=== PATIENT | female | born 1945 | race Caucasian/White ===

== ENCOUNTER 2016-07-28 07:14 | Emergency (ER) | payer MEDICARE, OTHER ==
[~2016-07-28] VITALS: Ht 160 cm; Wt 46.0 kg
[~2016-07-28 07:14] MED LIST: AMLO5TAB4 PO; ATOR20TA38 PO; CLON2TAB3 PO; CYCL-319 PO; FAMO-18 PO; HYDR25SU24 PR; NAPR-260 PO; PROC10TA10 PO; RANI75TA13 PO; TRAM50TA2 PO; VENL150C PO
[2016-07-28 07:18] VITALS: Ht 160 cm; Wt 46.0 kg
[2016-07-28] MEDS ORDERED: CLON2TAB3 PO (08:06)
--- NOTE | 2016-07-28 08:08 | ERD ---
ER Documentation Chief Complaint Date/Time DATE: 07/28/16 TIME: 08:07 Chief Complaint medication refill needs clonazepam HPI 71-year-old female presents to the emergency department requesting a refill of her clonazepam. Patient has no acute complaints at this time other than feeling slightly anxious. She denies seizure activity. She states that she has been unable to see her doctor because her doctor's office is now deferring patients because the doctor has been sick. Patient has no other acute medical complaints at this time. ROS All systems reviewed and are negative except as per history of present illness. Medications Home Meds Active Scripts Clonazepam* (Clonazepam*) 2 Mg Tablet, 2 MG PO BID, #10 TAB Prov:ANDREAS RANGEL 07/28/16 Hydrocortisone Acetate* (Anusol-HC*) 25 Mg/Supp.rect Supp.rect, 1 SUPP [place] HS, # 12 SUPP.RECT Prov:PEACE HERNANDEZ MD 01/02/16 Tramadol HCl (Tramadol HCl) 50 Mg Tab, 50 MG PO Q4 Y for PAIN, #20 TAB Prov:LELAND STOREY PA-C 04/21/15 Cyclobenzaprine Hcl* (Cyclobenzaprine Hcl*) 10 Mg Tablet, 10 MG PO TID, #15 TAB Prov:VIRIDIANA MILLS. BLASTING MACHINE OPERATOR 03/28/15 Naproxen* (Naprosyn*) 500 Mg Tablet, 500 MG PO BID Y for PAIN AND/OR INFLAMMATION, #30 TAB Prov:VIRIDIANA MILLS. BLASTING MACHINE OPERATOR 03/28/15 Tramadol HCl (Tramadol HCl) 50 Mg Tab, 50 MG PO Q6, #8 TAB Prov:LANG STEVENS MD 03/25/15 Reported Medications Clonazepam* (Clonazepam*) 2 Mg Tablet, 2 MG PO QHS, TAB 11/21/14 Prochlorperazine* (Prochlorperazine*) 10 Mg Tablet, 10 MG PO Q4 Y for NAUSEA, TAB 11/21/14 Ranitidine Hcl* (Zantac*) 75 Mg Tablet, 75 MG PO BID, TAB 11/21/14 Amlodipine Besylate* (Norvasc*) 5 Mg Tablet, 5 MG PO DAILY, TAB 11/21/14 Atorvastatin Calcium* (Atorvastatin Calcium*) 20 Mg Tablet, 20 MG PO DAILY 11/04/12 Famotidine* (Pepcid*) 20 Mg Tablet, 20 MG PO BID 11/04/12 Venlafaxine Hcl* (Effexor XR*) 150 Mg Cap.sr.24h, 150 MG PO DAILY 11/04/12 Allergies Allergies: Coded Allergies: No Known Allergy (Unverified , 03/25/15) PMhx/Soc History of Surgery: Yes (breast augmentation, ulcer repair, s/p colectomy, ovarian cyst removal) Anesthesia Reaction: No Hx Neurological Disorder: No Hx Respiratory Disorders: No Hx Cardiac Disorders: No Hx Psychiatric Problems: Yes (anxiety ) Hx Miscellaneous Medical Probl: Yes (Hyperlipidemia ) Hx Alcohol Use: Yes Hx Substance Use: Yes Hx Tobacco Use: Yes Smoking Status: Current some day smoker FmHx Noncontributory for chief complaint Physical Exam Vitals Vital Signs Date Time Temp Pulse Resp B/P Pulse Ox O2 Delivery O2 Flow Rate FiO2 07/28/16 07:18 114 20 138/92 99 Physical Exam General: well developed, well nourished, in no distress. Neuro: Normal speech, gait, balance Psych: Mildly anxious but with normal mental status. Linear thought process. No suicidal or homicidal thoughts. Procedures/MDM Patient was taken to a room, seen and examined Medical decision makin-year-old female presents the emergency department for simple medication refill. At this time she shows no evidence of emergent medical condition on her medical screening examination. Medications have been reviewed and refilled as appropriately. She has been referred back to her primary care doctor for further continuity of care. Departure Diagnosis: Primary Impression: Encounter for medication refill Condition: Stable Patient Instructions: Taking Medicine Safely Referrals: BHARATI TIRADO (PCP) ANDREAS RANGEL Jul 28, 2016 08:08
== END 2016-07-28 08:58 | disposition home or self-care (01) ==
LOC: FTE 07:14
DX: Z76.0 Encounter for issue of repeat prescription (principal); F17.210 Nicotine dependence, cigarettes, uncomplicated
CPT/HCPCS: 99281

== ENCOUNTER 2016-08-05 08:55 | Emergency (ER) | payer MEDICARE, OTHER ==
[~2016-08-05] VITALS: Wt 45.0 kg
--- NOTE | 2016-08-05 12:01 | ERD ---
ER Documentation Chief Complaint Date/Time DATE: 08/05/16 TIME: 11:57 Chief Complaint HERE FOR MED REFILL OF SEIZURE MEDS. FEELING SHAKEY NO SEIZURE HPI Patient is a 8-year-old female with hypertension and seizures who presents for a medication refill. The patient says that she needs a refill for clonazepam. She has not run out of her clonazepam yet but says that she will run out on Friday which is in 2 days. She has multiple visits to the ER upon review of old medical records and she just had her clonazepam refilled by my partner on July 28. ROS All systems reviewed and are negative except as per history of present illness. Medications Home Meds Active Scripts Clonazepam* (Clonazepam*) 2 Mg Tablet, 2 MG PO BID, #10 TAB Prov:ANDREAS RANGEL 07/28/16 Hydrocortisone Acetate* (Anusol-HC*) 25 Mg/Supp.rect Supp.rect, 1 SUPP [place] HS, # 12 SUPP.RECT Prov:PEACE HERNANDEZ MD 01/02/16 Tramadol HCl (Tramadol HCl) 50 Mg Tab, 50 MG PO Q4 Y for PAIN, #20 TAB Prov:LELAND STOREY PA-C 04/21/15 Cyclobenzaprine Hcl* (Cyclobenzaprine Hcl*) 10 Mg Tablet, 10 MG PO TID, #15 TAB Prov:VIRIDIANA MILLS NP 03/28/15 Naproxen* (Naprosyn*) 500 Mg Tablet, 500 MG PO BID Y for PAIN AND/OR INFLAMMATION, #30 TAB Prov:VIRIDIANA MILLS NP 03/28/15 Tramadol HCl (Tramadol HCl) 50 Mg Tab, 50 MG PO Q6, #8 TAB Prov:LANG STEVENS MD 03/25/15 Reported Medications Clonazepam* (Clonazepam*) 2 Mg Tablet, 2 MG PO QHS, TAB 11/21/14 Prochlorperazine* (Prochlorperazine*) 10 Mg Tablet, 10 MG PO Q4 Y for NAUSEA, TAB 11/21/14 Ranitidine Hcl* (Zantac*) 75 Mg Tablet, 75 MG PO BID, TAB 11/21/14 Amlodipine Besylate* (Norvasc*) 5 Mg Tablet, 5 MG PO DAILY, TAB 11/21/14 Atorvastatin Calcium* (Atorvastatin Calcium*) 20 Mg Tablet, 20 MG PO DAILY 11/04/12 Famotidine* (Pepcid*) 20 Mg Tablet, 20 MG PO BID 11/04/12 Venlafaxine Hcl* (Effexor XR*) 150 Mg Cap.sr.24h, 150 MG PO DAILY 11/04/12 Allergies Allergies: Coded Allergies: No Known Allergy (Unverified , 03/25/15) PMhx/Soc History of Surgery: Yes (breast augmentation, ulcer repair, s/p colectomy, ovarian cyst removal) Anesthesia Reaction: No Hx Neurological Disorder: No Hx Respiratory Disorders: No Hx Cardiac Disorders: No Hx Psychiatric Problems: Yes (anxiety ) Hx Miscellaneous Medical Probl: Yes (Hyperlipidemia ) Hx Alcohol Use: Yes Hx Substance Use: Yes Hx Tobacco Use: Yes FmHx Family History: No diabetes Physical Exam Vitals Vital Signs Date Time Temp Pulse Resp B/P Pulse Ox O2 Delivery O2 Flow Rate FiO2 08/05/16 09:03 98.5 99 22 114/81 94 Physical Exam Const: No acute distress Head: Atraumatic Eyes: Normal Conjunctiva ENT: Normal External Ears, Nose and Mouth. Neck: Full range of motion..~ No meningismus. Resp: Clear to auscultation bilaterally Cardio: Regular rate and rhythm, no murmurs Abd: Soft, non tender, non distended. Normal bowel sounds Skin: No petechiae or rashes Back: No midline or flank tenderness Ext: No cyanosis, or edema Neur: Awake and alert, no seizure activity this time Psych: Normal Mood and Affect Procedures/MDM Smoking Cessation Therapy: Pt. was lectured for greater than 3 minutes on the health risks of continued smoking and the benefits of cessation. Patient is a 71-year-old female with seizures who takes clonazepam. She is requesting a refill for clonazepam. Given the fact that this is a controlled substance I will not give her a refill. She still has 2 days left on her prescription. She will need to get this filled by her primary doctor. Review of old medical records shows multiple visits to the ER for various complaints. There may be an element of drug-seeking behavior. She has no sign of acute seizure at this time. Departure Diagnosis: Primary Impression: Seizures Additional Impression: Encounter for medication refill Condition: Fair Patient Instructions: Seizure, Recurrent [Adult] Referrals: [facility] YOU HAVE RECEIVED A MEDICAL SCREENING EXAM AND THE RESULTS INDICATE THAT YOU DO NOT HAVE A CONDITION THAT REQUIRES URGENT TREATMENT IN THE EMERGENCY DEPARTMENT. FURTHER EVALUATION AND TREATMENT OF YOUR CONDITION CAN WAIT UNTIL YOU ARE SEEN IN YOUR DOCTORS OFFICE WITHIN THE NEXT 1-2 DAYS. IT IS YOUR RESPONSIBILITY TO MAKE AN APPOINTMENT FOR FOLOW-UP CARE. IF YOU HAVE A PRIMARY DOCTOR --you should call your primary doctor and schedule an appointment IF YOU DO NOT HAVE A PRIMARY DOCTOR YOU CAN CALL OUR PHYSICIAN REFERRAL HOTLINE AT IF YOU CAN NOT AFFORD TO SEE A PHYSICIAN YOU CAN CHOSE FROM THE FOLLOWING [facility] [id number] [facility]. [facility] [address] [facility]. [facility] [address] [facility] [facility] [address] [facility]. [facility] [address] [facility]. [facility] [address] Additional Instructions: Call your primary care doctor TOMORROW for an appointment during the next 1-2 days.See the doctor sooner or return here if your condition worsens before your appointment time. PEACE HERNANDEZ MD Aug 05, 2016 12:01
== END 2016-08-05 10:19 | disposition left against medical advice (07) ==
LOC: E/R 08:55
DX: G40.909 Epilepsy, unspecified, not intractable, without status epilepticus (principal); I10 Essential (primary) hypertension; Z87.891 Personal history of nicotine dependence
CPT/HCPCS: 99281

== ENCOUNTER 2017-01-10 07:08 | Emergency (ER) | payer MEDICARE, OTHER ==
[~2017-01-10] VITALS: Wt 62.0 kg
[~2017-01-10 07:08] MED LIST changes: +CEPH-443 PO; -FAMO-18 PO; +FAMO-96 PO; +HC30CR25 TOP; +SULF1TAB31 PO
[2017-01-10 07:11] VITALS: Wt 62.0 kg
[2017-01-10] MEDS ORDERED: morphine 4 MG/ML VIAL IV STA (07:26)
[2017-01-10] MEDS ORDERED: ONDANSETRON 4 MG INJ IV STA (07:26)
[2017-01-10] MEDS ORDERED: SOD CHLORIDE 0.9% 1,000 ML IV STA (07:26)
[2017-01-10 08:11] LABS: ADD SCAN DIFF NO
[2017-01-10 08:12] LABS: BASOPHIL # 0.1 10^3/ul (0.0-0.1); BASOPHILS % 0.9 % (0.0-2.0); EOSINOPHILS # 0.1 10^3/ul (0.0-0.5); EOSINOPHILS % 2.2 % (0.0-7.0); HEMATOCRIT 39.6 % (37.0-47.0); HEMOGLOBIN 13.2 g/dl (12.0-16.0); LYMPHOCYTES # 1.8 10^3/ul (0.8-2.9); MEAN CORPUSCULAR HGB CONC 33.3 g/dl (32.0-37.0); MEAN CORPUSCULAR VOLUME 102.1 fl (82.0-101.0); MEAN PLATELET VOLUME 10.7 fl (7.4-10.4); MONOCYTE # 0.6 10^3/ul (0.3-0.9); MONOCYTES % 8.6 % (0.0-11.0); NEUTROPHIL # 3.8 10^3/ul (1.6-7.5); NEUTROPHILS % 60.1 % (39.0-77.0); PLATELET COUNT 248 10^3/UL (140-415); RED BLOOD COUNT 3.88 10^6/ul (4.20-5.40); RED CELL DISTRIBUTION WIDTH 12.6 % (11.5-14.5); WHITE BLOOD COUNT 6.4 10^3/ul (4.8-10.8)
[2017-01-10 08:31] LABS: ALANINE AMINOTRANSFERASE 46 IU/L (13-69); ALBUMIN 4.5 g/dl (3.3-4.9); ALBUMIN/GLOBULIN RATIO 1.32; ALKALINE PHOSPHATASE 74 IU/L (42-121); ANION GAP 23 (8-16); ASPARTATE AMINO TRANSFERASE 36 IU/L (15-46); BILIRUBIN,INDIRECT 0.2 mg/dl (0-1.1); BILIRUBIN,TOTAL 0.2 mg/dl (0.2-1.3); BLOOD UREA NITROGEN 13 mg/dl (7-20); CALCIUM 9.6 mg/dl (8.4-10.2); CARBON DIOXIDE 22 mmol/L (21-31); CHLORIDE 103 mmol/L (97-110); CREATININE 0.91 mg/dl (0.44-1.00); GLUCOSE 91 mg/dl (70-220); POTASSIUM 4.4 mmol/L (3.5-5.1); SODIUM 144 mmol/L (135-144); TOTAL PROTEIN 7.9 g/dl (6.1-8.1)
--- NOTE | 2017-01-10 08:38 | RADRPT ---
PROCEDURE: CT Abdomen and Pelvis without contrast. CLINICAL INDICATION: Abdominal pain. TECHNIQUE: Routine abdominopelvic CT was performed without intravenous contrast and reformatted in the axial, coronal, sagittal planes. Radiation dose: CTDIvol (mGy) = 4.2; total DLP mGy-cm = 198. One or more of the following radiation dose techniques were used: -Automated exposure control. -Adjust of the mA and/or kV according to patient size. -Use of iterative reconstruction technique. COMPARISON: CT, 11/21/2014. FINDINGS: The gallbladder is distended without stones or gallbladder wall thickening. Unenhanced images of th e liver, pancreas, and spleen demonstrate no gross abnormality. There is stable nodular thickening of the left greater than right adrenal glands. Kidneys demonstrate symmetric attenuation without hydronephrosis or nephrolithiasis. There is mild to moderate sigmoid colonic diverticulosis without diverticulitis. There is a moderat e amount of stool identified in the colon. There is an abdominal aortic aneurysm measuring 3.2 cm in AP diameter, unchanged in comparison to . Pelvic viscera is grossly unremarkable. No adnexal cyst or mass. No free fluid or fluid collection . IMPRESSION: Please on this examination is limited without intravenous contrast, which may significantly limit di agnostic sensitivity and the range of detectable diagnoses. Within the limitations of the examinati on, there are no acute changes observed. Stable abdominal aortic aneurysm. Colonic diverticulosis, complicated. RPTAT: EE .Geoffrey Roth MD, Date Time Electronically viewed and signed by .Geoffrey Roth MD, on 01/10/2017 08:42 .C/
[2017-01-10 08:47] LABS: TROPONIN-I < 0.012 ng/ml (0.00-0.12)
[2017-01-10] MEDS ORDERED: MAGN296S40 PO (09:11)
[2017-01-10] MEDS ORDERED: NAPR-685 PO (09:11)
[2017-01-10] MEDS ORDERED: ONDA4TAB11 PO (09:11)
[2017-01-10] MEDS ORDERED: POLY17PO6 PO (09:11)
--- NOTE | 2017-01-10 09:23 | ERD ---
ER Documentation Chief Complaint Date/Time DATE: 01/10/17 TIME: 09:14 Chief Complaint ABD PAIN X 3 DAYS HPI This 71-year-old female presents with abdominal pain for 3 days. States that the pain injection has been on and off for quite some time. Describes it as a pressure-like sensation in her mid abdomen as well as in other parts of her abdomen. Also states she is having trouble having a bowel movement. She has had nausea with this. She denies any chest pain shortness of breath fever chills per ROS All systems reviewed and are negative except as per history of present illness. Medications Home Meds Active Scripts Naproxen* (Naproxen*) 375 Mg Tablet, 375 MG PO BID Y for PAIN, #8 TAB Prov:JERAMY MAN DO 01/10/17 Ondansetron (Zofran Odt) 4 Mg Tab.rapdis, 4 MG PO Q6 for NAUSEA, #10 Prov:JERAMY MAN DO 01/10/17 Polyethylene Glycol* (Miralax*) 17 Gm Powd.pack, 17 GM PO DAILY, #7 Prov:JERAMY MAN DO 01/10/17 Magnesium Citrate* (Magnesium Citrate*) 296 Ml Solution, 296 ML PO ONCE, #1 BOTTLE Prov:JERAMY MAN DO 01/10/17 Hydrocortisone* Topical (Hydrocortisone* Topical) 2.5%-28.3 Gm Cream..g., 1 APPLIC TOP BID, #1 TUB Prov:PEACE HERNANDEZ MD 11/12/16 Sulfamethoxazole/Trimethoprim* (Bactrim Ds* Tablet) 1 Each Tablet, 1 TAB PO BID , #7 TAB Prov:PEACE HERNANDEZ MD 11/12/16 Cephalexin* (Keflex*) 500 Mg Capsule, 500 MG PO QID for 7 Days, CAP Prov:PEACE HERNANDEZ MD 11/12/16 Clonazepam* (Clonazepam*) 2 Mg Tablet, 2 MG PO BID, #10 TAB Prov:ANDREAS RANGEL 07/28/16 Hydrocortisone Acetate* (Anusol-HC*) 25 Mg/Supp.rect Supp.rect, 1 SUPP [place] HS, # 12 SUPP.RECT Prov:PEACE HERNANDEZ MD 01/02/16 Tramadol HCl (Tramadol HCl) 50 Mg Tab, 50 MG PO Q4 Y for PAIN, #20 TAB Prov:LELAND STOREY PA-C 04/21/15 Cyclobenzaprine Hcl* (Cyclobenzaprine Hcl*) 10 Mg Tablet, 10 MG PO TID, #15 TAB Prov:VIRIDIANA MILLS NP 03/28/15 Naproxen* (Naprosyn*) 500 Mg Tablet, 500 MG PO BID Y for PAIN AND/OR INFLAMMATION, #30 TAB Prov:VIRIDIANA MILLS. HEATING EQUIPMENT INSTALLER 03/28/15 Tramadol HCl (Tramadol HCl) 50 Mg Tab, 50 MG PO Q6, #8 TAB Prov:LANG STEVENS MD 03/25/15 Reported Medications Clonazepam* (Clonazepam*) 2 Mg Tablet, 2 MG PO QHS, TAB 11/21/14 Prochlorperazine* (Prochlorperazine*) 10 Mg Tablet, 10 MG PO Q4 Y for NAUSEA, TAB 11/21/14 Ranitidine Hcl* (Zantac*) 75 Mg Tablet, 75 MG PO BID, TAB 11/21/14 Amlodipine Besylate* (Norvasc*) 5 Mg Tablet, 5 MG PO DAILY, TAB 11/21/14 Atorvastatin Calcium* (Atorvastatin Calcium*) 20 Mg Tablet, 20 MG PO DAILY 11/04/12 Famotidine* (Pepcid*) 20 Mg Tablet, 20 MG PO BID 11/04/12 Venlafaxine Hcl* (Effexor XR*) 150 Mg Cap.sr.24h, 150 MG PO DAILY 11/04/12 Allergies Allergies: Coded Allergies: No Known Allergy (Unverified , 03/25/15) PMhx/Soc History of Surgery: Yes (breast augmentation, ulcer repair, s/p colectomy, ovarian cyst removal) Anesthesia Reaction: No Hx Neurological Disorder: No Hx Respiratory Disorders: No Hx Cardiac Disorders: Yes (HTN) Hx Psychiatric Problems: Yes (Anxiety, Depression) Hx Miscellaneous Medical Probl: Yes (Hyperlipidemia ) Hx Alcohol Use: No (Denies) Hx Substance Use: No (Denies) Hx Tobacco Use: Yes Smoking Status: Current every day smoker Physical Exam Vitals Vital Signs Date Time Temp Pulse Resp B/P Pulse Ox O2 Delivery O2 Flow Rate FiO2 01/10/17 08:15 81 18 126/77 95 Room Air 01/10/17 07:11 98.0 121 18 132/76 99 Physical Exam Const: [] No distress Head: Atraumatic Eyes: Normal Conjunctiva ENT: Normal External Ears, Nose and Mouth. Neck: Full range of motion..~ No meningismus. Resp: Clear to auscultation bilaterally Cardio: Regular rate and rhythm, no murmurs Abd: Soft, mild mid abdominal and left-sided abdominal tenderness without guarding or rebound. non distended. Normal bowel sounds Skin: No petechiae or rashes Back: No midline or flank tenderness Ext: No cyanosis, or edema Neur: Awake and alert and oriented 3, no focal deficits Psych: Normal Mood and Affect Result Diagram: 01/10/17 0800 01/10/17 0800 Results 24 hrs Laboratory Tests Test 01/10/17 08:00 White Blood Count 6.410^3/ul Red Blood Count 3.8810^6/ul Hemoglobin 13.2g/dl Hematocrit 39.6% Mean Corpuscular Volume 102.1fl Mean Corpuscular Hemoglobin 34.0pg Mean Corpuscular Hemoglobin Concent 33.3g/dl Red Cell Distribution Width 12.6% Platelet Count 37230^3/UL Mean Platelet Volume 10.7fl Neutrophils % 60.1% Lymphocytes % 28.0% Monocytes % 8.6% Eosinophils % 2.2% Basophils % 0.9% Neutrophils # 3.810^3/ul Lymphocytes # 1.810^3/ul Monocytes # 0.610^3/ul Eosinophils # 0.110^3/ul Basophils # 0.110^3/ul Nucleated Red Blood Cells # 0.010^3/ul Sodium Level 144mmol/L Potassium Level 4.4mmol/L Chloride Level 103mmol/L Carbon Dioxide Level 22mmol/L Anion Gap 23 Blood Urea Nitrogen 13mg/dl Creatinine 0.91mg/dl Glucose Level 91mg/dl Calcium Level 9.6mg/dl Total Bilirubin 0.2mg/dl Direct Bilirubin 0.00mg/dl Indirect Bilirubin 0.2mg/dl Aspartate Amino Transf (AST/SGOT) 36IU/L Alanine Aminotransferase (ALT/SGPT) 46IU/L Alkaline Phosphatase 74IU/L Troponin I < 0.012ng/ml Total Protein 7.9g/dl Albumin 4.5g/dl Globulin 3.40g/dl Albumin/Globulin Ratio 1.32 Lipase 57U/L Current Medications Medications (Trade) Dose Ordered Sig/Richard Route PRN Reason Start Time Stop Time Status Last Admin Dose Admin Sodium Chloride (NS) 1,000 ml @ 1,000 mls/hr Q1H STAT IV 01/10/17 07:26 01/10/17 08:25 DC 01/10/17 08:09 Morphine Sulfate (morphine) 4 mg ONCE STAT IV 01/10/17 07:26 01/10/17 07:30 DC 01/10/17 08:09 Ondansetron HCl (Zofran Inj) 4 mg ONCE STAT IV 01/10/17 07:26 01/10/17 07:30 DC 01/10/17 08:09 Procedures/MDM Abdominal pain with constipation. Patient has stable vital signs and laboratories. CAT scan is negative for any acute process or obstruction. Patient does have a large amount of stool. She was given morphine and Zofran as well as a liter of IV fluid in the emergency room. She is feeling better. We will discharge her with Zofran, naproxen, MiraLAX and magnesium citrate. Also primary care follow-up as soon as possible. Given return precautions to the ER for any concerning changes. CT abdomen pelvis interpretation: Moderate stool retention throughout colon, calcified proximal abdominal aortic aneurysm, no free air, no obstruction, no acute fractures. Departure Diagnosis: Primary Impression: Constipation Additional Impressions: Abdominal pain Nausea Condition: Stable Patient Instructions: Abdominal Pain, Treating Constipation, Nausea Additional Instructions: Call your primary care doctor TOMORROW for an appointment during the next 2-3 days.See the doctor sooner or return here if your condition worsens before your appointment time. JERAMY MAN DO Jan 10, 2017 09:22
[2017-01-10 09:46] LABS: ADD UMIC NO; UR ASCORBIC ACID NEGATIVE (NEGATIVE); UR BILIRUBIN (Dip) NEGATIVE (NEGATIVE); UR BLOOD (Dip) NEGATIVE (NEGATIVE); UR CLARITY CLEAR (CLEAR); UR COLOR COLORLESS (YELLOW); UR GLUCOSE (Dip) NEGATIVE (NEGATIVE); UR KETONES (Dip) NEGATIVE (NEGATIVE); UR LEUKOCYTE ESTERASE (Dip) NEGATIVE Leu/ul (NEGATIVE); UR NITRITE (Dip) NEGATIVE (NEGATIVE); UR SPECIFIC GRAVITY (Dip) 1.008 (1.003-1.030); UR TOTAL PROTEIN (Dip) NEGATIVE (NEGATIVE); UR UROBILINOGEN (Dip) NEGATIVE (NEGATIVE)
[2017-01-10 09:54] VITALS: BP 140/86; PULSE 73; RESP 18
== END 2017-01-10 09:56 | disposition home or self-care (01) ==
LOC: E/R 07:08
DX: K59.00 Constipation, unspecified (principal); R11.0 Nausea; I10 Essential (primary) hypertension; F17.210 Nicotine dependence, cigarettes, uncomplicated
CPT/HCPCS: 36415; 74176; 80053; 81003; 83690; 84484; 85025; 96374; 96375; 99285; J2270; J2405; J7030

== ENCOUNTER 2017-01-23 07:56 | Emergency (ER) | payer MEDICARE, OTHER ==
[~2017-01-23] VITALS: Ht 160 cm; Wt 50.0 kg
[~2017-01-23 07:56] MED LIST changes: +MAGN296S40 PO; +NAPR-685 PO; +ONDA4TAB11 PO; +POLY17PO6 PO
[2017-01-23] MEDS ORDERED: KETOROLAC 15 MG INJ IV STA (08:23)
--- NOTE | 2017-01-23 08:28 | ERD ---
ER Documentation Chief Complaint Date/Time DATE: 01/23/17 TIME: 08:24 Chief Complaint HPI 71-year-old female with a history of COPD, hypertension, peptic ulcer disease, anxiety and chronic pain brought to the ED by ambulance for evaluation of abdominal pain. Patient describes acute onset of sharp, diffuse, nonradiating abdominal pain initially severe but now mild. No nausea, vomiting, diarrhea or constipation. Patient reports being diagnosed with abdominal aortic aneurysm during her previous visit in December 2016 for abdominal pain. Denies dysuria, polyuria, hematuria or flank pain. Denies shortness of breath or cough. No headache, neck or back pain. No leg pain or swelling. No fevers or chills. ROS All systems reviewed and are negative except as per history of present illness. Medications Home Meds Active Scripts Naproxen* (Naproxen*) 375 Mg Tablet, 375 MG PO BID Y for PAIN, #8 TAB Prov:JERAMY MAN DO 01/10/17 Ondansetron (Zofran Odt) 4 Mg Tab.rapdis, 4 MG PO Q6 for NAUSEA, #10 Prov:JERAMY MAN DO 01/10/17 Polyethylene Glycol* (Miralax*) 17 Gm Powd.pack, 17 GM PO DAILY, #7 Prov:JERAMY MAN DO 01/10/17 Magnesium Citrate* (Magnesium Citrate*) 296 Ml Solution, 296 ML PO ONCE, #1 BOTTLE Prov:JERAMY MAN DO 01/10/17 Hydrocortisone* Topical (Hydrocortisone* Topical) 2.5%-28.3 Gm Cream..g., 1 APPLIC TOP BID, #1 TUB Prov:PEACE HERNANDEZ MD 11/12/16 Sulfamethoxazole/Trimethoprim* (Bactrim Ds* Tablet) 1 Each Tablet, 1 TAB PO BID , #7 TAB Prov:PEACE HERNANDEZ MD 11/12/16 Cephalexin* (Keflex*) 500 Mg Capsule, 500 MG PO QID for 7 Days, CAP Prov:PEACE HERNANDEZ MD 11/12/16 Clonazepam* (Clonazepam*) 2 Mg Tablet, 2 MG PO BID, #10 TAB Prov:ANDREAS RANGEL 07/28/16 Hydrocortisone Acetate* (Anusol-HC*) 25 Mg/Supp.rect Supp.rect, 1 SUPP [place] HS, # 12 SUPP.RECT Prov:PEACE HERNANDEZ MD 01/02/16 Tramadol HCl (Tramadol HCl) 50 Mg Tab, 50 MG PO Q4 Y for PAIN, #20 TAB Prov:LELAND STOREY PA-C 04/21/15 Cyclobenzaprine Hcl* (Cyclobenzaprine Hcl*) 10 Mg Tablet, 10 MG PO TID, #15 TAB Prov:VIRIDIANA MILLS. ETHNIC ORIGINS TEACHER 03/28/15 Naproxen* (Naprosyn*) 500 Mg Tablet, 500 MG PO BID Y for PAIN AND/OR INFLAMMATION, #30 TAB Prov:VIRIDIANA MILLS. ETHNIC ORIGINS TEACHER 03/28/15 Tramadol HCl (Tramadol HCl) 50 Mg Tab, 50 MG PO Q6, #8 TAB Prov:LANG STEVENS MD 03/25/15 Reported Medications Clonazepam* (Clonazepam*) 2 Mg Tablet, 2 MG PO QHS, TAB 11/21/14 Prochlorperazine* (Prochlorperazine*) 10 Mg Tablet, 10 MG PO Q4 Y for NAUSEA, TAB 11/21/14 Ranitidine Hcl* (Zantac*) 75 Mg Tablet, 75 MG PO BID, TAB 11/21/14 Amlodipine Besylate* (Norvasc*) 5 Mg Tablet, 5 MG PO DAILY, TAB 11/21/14 Atorvastatin Calcium* (Atorvastatin Calcium*) 20 Mg Tablet, 20 MG PO DAILY 11/04/12 Famotidine* (Pepcid*) 20 Mg Tablet, 20 MG PO BID 11/04/12 Venlafaxine Hcl* (Effexor XR*) 150 Mg Cap.sr.24h, 150 MG PO DAILY 11/04/12 Allergies Allergies: Coded Allergies: No Known Allergy (Unverified , 03/25/15) PMhx/Soc Reviewed in chart. As per HPI. History of Surgery: Yes (breast augmentation, ulcer repair, s/p colectomy, ovarian cyst removal) Anesthesia Reaction: No Hx Neurological Disorder: No Hx Respiratory Disorders: No Hx Cardiac Disorders: Yes (HTN, AAA) Hx Psychiatric Problems: Yes (Anxiety, Depression) Hx Miscellaneous Medical Probl: Yes (Hyperlipidemia ) Hx Alcohol Use: No (Denies) Hx Substance Use: No (Denies) Hx Tobacco Use: Yes Smoking Status: Current every day smoker FmHx Hypertension but no stroke or cancer Physical Exam Vitals Vital Signs Date Time Temp Pulse Resp B/P Pulse Ox O2 Delivery O2 Flow Rate FiO2 01/23/17 10:16 98.3 83 17 139/73 94 Room Air 01/23/17 10:13 98.1 80 19 135/69 100 Physical Exam Const: Alert, anxious Head: Atraumatic Eyes: Normal Conjunctiva ENT: Normal External Ears, Nose and Mouth. Neck: Full range of motion. Nontender Resp: Clear to auscultation bilaterally Cardio: Regular rate and rhythm, no murmurs Abd: Soft, mild, generalized tenderness but no rebound or guarding. No masses or abnormal pulsations. Skin: No petechiae or rashes Back: No midline or flank tenderness Ext: No cyanosis, or edema. Pulses 4+ in all extrema Neur: Awake and alert. No focal deficit observed. Psych: Anxious but not depressed Result Diagram: 01/23/17 0849 01/23/17 0849 Results 24 hrs Laboratory Tests Test 01/23/17 08:49 White Blood Count 9.010^3/ul Red Blood Count 3.9410^6/ul Hemoglobin 13.2g/dl Hematocrit 39.9% Mean Corpuscular Volume 101.3fl Mean Corpuscular Hemoglobin 33.5pg Mean Corpuscular Hemoglobin Concent 33.1g/dl Red Cell Distribution Width 12.3% Platelet Count 45751^3/UL Mean Platelet Volume 11.1fl Neutrophils % 71.5% Lymphocytes % 17.9% Monocytes % 8.6% Eosinophils % 1.0% Basophils % 0.7% Nucleated Red Blood Cells % 0.0/100WBC Neutrophils # 6.410^3/ul Lymphocytes # 1.610^3/ul Monocytes # 0.810^3/ul Eosinophils # 0.110^3/ul Basophils # 0.110^3/ul Nucleated Red Blood Cells # 0.010^3/ul Sodium Level 143mmol/L Potassium Level 4.3mmol/L Chloride Level 101mmol/L Carbon Dioxide Level 23mmol/L Anion Gap 23 Blood Urea Nitrogen 19mg/dl Creatinine 0.93mg/dl Glucose Level 89mg/dl Calcium Level 10.0mg/dl Total Bilirubin 0.0mg/dl Direct Bilirubin 0.00mg/dl Indirect Bilirubin 0.0mg/dl Aspartate Amino Transf (AST/SGOT) 26IU/L Alanine Aminotransferase (ALT/SGPT) 40IU/L Alkaline Phosphatase 70IU/L Total Protein 7.9g/dl Albumin 4.7g/dl Globulin 3.20g/dl Albumin/Globulin Ratio 1.46 Current Medications Medications (Trade) Dose Ordered Sig/Richard Route PRN Reason Start Time Stop Time Status Last Admin Dose Admin Ketorolac Tromethamine (Toradol) 15 mg ONCE STAT IV 01/23/17 08:23 01/23/17 10:22 DC Tramadol HCl (Ultram) 50 mg ONCE ONCE PO 01/23/17 10:30 01/23/17 10:31 Procedures/MDM DOCUMENTS REVIEWED: ED nurse, prior ED, prior records. CT scan of the abdomen and pelvis 11/2014 and 01/10/2017 revealed a 3.2 cm infrarenal abdominal aortic dilatation. REEXAMINATION/REEVALUATION: Time: 10:20. Feels better. Abdomen soft nontender. Wants to go home. MEDICAL DECISION MAKIN-year-old female with a history of COPD, hypertension, peptic ulcer disease, anxiety and chronic pain brought to the ED by ambulance for evaluation of abdominal pain. Patient has had recent abdomen CT on 01/10/2017 consistent with constipation. She does have a stable infrarenal abdominal aortic dilatation of a 3.2 cm is unchanged since November 2014. Considering the size there is less than a 0.5% chance of rupture and it is highly unlikely that this is the source of her pain. Vital signs, hemoglobin /hematocrit are normal. Abdominal exam is benign without rebound, guarding or signs of peritonitis. No symptoms of bowel obstruction. Repeat scanning at this time is not indicated. Stable for discharge precautionary instructions and outpatient follow-up as counseled. patient understands that the etiology of her symptoms is not established and urgent outpatient follow-up is mandatory or return to the ED if worse. Counseled patient regarding diagnostic workup, diagnosis and need for followup. Understands to return to ED if symptoms recur, worsen or any other concerns. Departure Diagnosis: Primary Impression: Acute generalized abdominal pain Additional Impression: Abdominal pain of unknown etiology Condition: Stable LANG STEVNES MD Jan 23, 2017 08:28
[2017-01-23 09:27] LABS: BASOPHIL # 0.1 10^3/ul (0.0-0.1); BASOPHILS % 0.7 % (0.0-2.0); EOSINOPHILS # 0.1 10^3/ul (0.0-0.5); HEMATOCRIT 39.9 % (37.0-47.0); HEMOGLOBIN 13.2 g/dl (12.0-16.0); LYMPHOCYTES # 1.6 10^3/ul (0.8-2.9); LYMPHOCYTES % 17.9 % (15.0-51.0); MEAN CORPUSCULAR HEMOGLOBIN 33.5 pg (29.0-33.0); MEAN CORPUSCULAR HGB CONC 33.1 g/dl (32.0-37.0); MEAN CORPUSCULAR VOLUME 101.3 fl (82.0-101.0); MEAN PLATELET VOLUME 11.1 fl (7.4-10.4); MONOCYTE # 0.8 10^3/ul (0.3-0.9); MONOCYTES % 8.6 % (0.0-11.0); NEUTROPHIL # 6.4 10^3/ul (1.6-7.5); NEUTROPHILS % 71.5 % (39.0-77.0); PLATELET COUNT 238 10^3/UL (140-415); RED BLOOD COUNT 3.94 10^6/ul (4.20-5.40); RED CELL DISTRIBUTION WIDTH 12.3 % (11.5-14.5)
[2017-01-23 09:43] LABS: ALBUMIN 4.7 g/dl (3.3-4.9); ALBUMIN/GLOBULIN RATIO 1.46; CREATININE 0.93 mg/dl (0.44-1.00); POTASSIUM 4.3 mmol/L (3.5-5.1); TOTAL PROTEIN 7.9 g/dl (6.1-8.1)
[2017-01-23 10:13] VITALS: Ht 160 cm; Wt 50.0 kg
[2017-01-23 10:16] VITALS: BP 139/73; PULSE 83; RESP 17; TEMP 98.3
[2017-01-23] MEDS ORDERED: traMADol 50 MG TAB PO ONE (10:30)
[2017-01-23 10:42] LABS: ADD UMIC NO; UR ASCORBIC ACID NEGATIVE (NEGATIVE); UR BILIRUBIN (Dip) NEGATIVE (NEGATIVE); UR BLOOD (Dip) NEGATIVE (NEGATIVE); UR CLARITY CLEAR (CLEAR); UR COLOR YELLOW (YELLOW); UR GLUCOSE (Dip) NEGATIVE (NEGATIVE); UR KETONES (Dip) TRACE mg/dL (NEGATIVE); UR LEUKOCYTE ESTERASE (Dip) NEGATIVE Leu/ul (NEGATIVE); UR NITRITE (Dip) NEGATIVE (NEGATIVE); UR SPECIFIC GRAVITY (Dip) 1.018 (1.003-1.030); UR TOTAL PROTEIN (Dip) NEGATIVE (NEGATIVE); UR UROBILINOGEN (Dip) NEGATIVE (NEGATIVE)
== END 2017-01-23 10:34 | disposition home or self-care (01) ==
LOC: E/R 07:56
DX: R10.84 Generalized abdominal pain (principal); I10 Essential (primary) hypertension; F17.210 Nicotine dependence, cigarettes, uncomplicated; J44.9 Chronic obstructive pulmonary disease, unspecified
CPT/HCPCS: 80053; 81003; 85025; 99283

== ENCOUNTER 2017-04-14 06:52 | Emergency (ER) | payer MEDICARE, OTHER ==
[~2017-04-14] VITALS: Ht 160 cm; Wt 47.5 kg
[2017-04-14 06:56] VITALS: Ht 160 cm; Wt 47.5 kg
[2017-04-14] MEDS ORDERED: METHYLPREDNISOLONE 125 MG INJ IV ONE (07:30)
[2017-04-14 07:51] VITALS: BP 110/75; TEMP 97.8
--- NOTE | 2017-04-14 08:02 | RADRPT ---
PROCEDURE: XR Chest. CLINICAL INDICATION: Chest pain. TECHNIQUE: Single frontal view. COMPARISON: 01/02/2016. FINDINGS: The lungs are clear. The heart size is normal. There is calcification in the aorta consistent with atherosclerosis. There is no pleural effusion or pneumothorax. There are bilateral breast implants. IMPRESSION: 1. No change from 01/02/2016. RPTAT: QQ .Jim Lockwood MD, MD Date Time Electronically viewed and signed by .Jim Lockwood MD, MD on 04/14/2017 08:02 .R/
[2017-04-14 08:03] LABS: BASOPHIL # 0.1 10^3/ul (0.0-0.1); BASOPHILS % 0.7 % (0.0-2.0); EOSINOPHILS # 0.1 10^3/ul (0.0-0.5); HEMATOCRIT 41.8 % (37.0-47.0); HEMOGLOBIN 13.9 g/dl (12.0-16.0); LYMPHOCYTES # 1.1 10^3/ul (0.8-2.9); LYMPHOCYTES % 13.9 % (15.0-51.0); MEAN CORPUSCULAR HEMOGLOBIN 33.9 pg (29.0-33.0); MEAN CORPUSCULAR HGB CONC 33.3 g/dl (32.0-37.0); MEAN PLATELET VOLUME 10.9 fl (7.4-10.4); MONOCYTE # 0.7 10^3/ul (0.3-0.9); MONOCYTES % 8.9 % (0.0-11.0); NEUTROPHIL # 6.1 10^3/ul (1.6-7.5); NEUTROPHILS % 75.1 % (39.0-77.0); PLATELET COUNT 224 10^3/UL (140-415); RED CELL DISTRIBUTION WIDTH 12.4 % (11.5-14.5); WHITE BLOOD COUNT 8.1 10^3/ul (4.8-10.8)
[2017-04-14 08:25] LABS: ANION GAP 18 (8-16); BLOOD UREA NITROGEN 10 mg/dl (7-20); CALCIUM 9.5 mg/dl (8.4-10.2); CARBON DIOXIDE 24 mmol/L (21-31); CHLORIDE 100 mmol/L (97-110); CREATININE 0.92 mg/dl (0.44-1.00); GLUCOSE 124 mg/dl (70-220); POTASSIUM 4.5 mmol/L (3.5-5.1); SODIUM 137 mmol/L (135-144)
[2017-04-14 08:42] LABS: TROPONIN-I < 0.012 ng/ml (0.00-0.12)
[2017-04-14] MEDS ORDERED: HYDR15SO8 PO (10:20)
[2017-04-14] MEDS ORDERED: PRED20TA PO (10:20)
[2017-04-14] MEDS ORDERED: AZIT250T94 PO (10:20)
[2017-04-14] MEDS ORDERED: ALBU8.5H3 INH (10:20)
--- NOTE | 2017-04-14 10:23 | ERD ---
ER Documentation Chief Complaint Chief Complaint cp, cough, congestion & upper back pain x2 days HPI This is a 71-year-old female who states she has had a cough for 3 days that is loose but she cannot cough it out. She has no shortness of breath or chest pain. The patient has AAA and she is afraid if she coughs too much that she is going to rupture her AAA. She has no abdominal pain no back pain no dizziness palpitations or near syncope. Denies any shortness of breath denies any runny nose sore throat back pain ROS All systems reviewed and are negative except as per history of present illness. Medications Home Meds Active Scripts Albuterol Sulfate* (Proair HFA*) 8.5 Gm Hfa.aer.ad, 2 PUFF INH Q4, #1 INHALER Prov:KALA SAUNDERS DO 04/14/17 Prednisone* (Prednisone*) 20 Mg Tab, 60 MG PO DAILY for 5 Days, TAB Prov:KALA SAUDNERS DO 04/14/17 Hydrocodone Bit-Acetaminophen* (Lortab* Liq) 7.5 Mg-325 Mg/15 Ml Solution, 15 ML PO Q6H Y for cou, #120 ML Prov:KALA SAUNDERS DO 04/14/17 Azithromycin* (Zithromax*) 250 Mg Tablet, 250 MG PO .ZPACK DIRECTED, #6 TAB TAKE 500 MG (2 TABS) THE FIRST DAY THEN 250 MG (1 TAB) DAYS 2-5 Prov:KALA SAUNDERS DO 04/14/17 Naproxen* (Naproxen*) 375 Mg Tablet, 375 MG PO BID Y for PAIN, #8 TAB Prov:JERAMY MAN DO 01/10/17 Ondansetron (Zofran Odt) 4 Mg Tab.rapdis, 4 MG PO Q6 for NAUSEA, #10 Prov:JERAMY MAN DO 01/10/17 Polyethylene Glycol* (Miralax*) 17 Gm Powd.pack, 17 GM PO DAILY, #7 Prov:JERAMY MAN DO 01/10/17 Magnesium Citrate* (Magnesium Citrate*) 296 Ml Solution, 296 ML PO ONCE, #1 BOTTLE Prov:JERAMY MAN DO 01/10/17 Hydrocortisone* Topical (Hydrocortisone* Topical) 2.5%-28.3 Gm Cream..g., 1 APPLIC TOP BID, #1 TUB Prov:PEACE HERNANDEZ MD 11/12/16 Sulfamethoxazole/Trimethoprim* (Bactrim Ds* Tablet) 1 Each Tablet, 1 TAB PO BID , #7 TAB Prov:PEACE HERNANDEZ MD 11/12/16 Cephalexin* (Keflex*) 500 Mg Capsule, 500 MG PO QID for 7 Days, CAP Prov:PEACE HERNANDEZ MD 11/12/16 Clonazepam* (Clonazepam*) 2 Mg Tablet, 2 MG PO BID, #10 TAB Prov:ANDREAS RANGEL 07/28/16 Hydrocortisone Acetate* (Anusol-HC*) 25 Mg/Supp.rect Supp.rect, 1 SUPP MI HS, # 12 SUPP.RECT Prov:PEACE HERNANDEZ MD 01/02/16 Tramadol HCl (Tramadol HCl) 50 Mg Tab, 50 MG PO Q4 Y for PAIN, #20 TAB Prov:LELAND STOREY PA-C 04/21/15 Cyclobenzaprine Hcl* (Cyclobenzaprine Hcl*) 10 Mg Tablet, 10 MG PO TID, #15 TAB Prov:VIRIDIANA MILLS [employer] 03/28/15 Naproxen* (Naprosyn*) 500 Mg Tablet, 500 MG PO BID Y for PAIN AND/OR INFLAMMATION, #30 TAB Prov:VIRIDIANA MILLS. [employer] 03/28/15 Tramadol HCl (Tramadol HCl) 50 Mg Tab, 50 MG PO Q6, #8 TAB Prov:LANG STEVENS MD 03/25/15 Reported Medications Clonazepam* (Clonazepam*) 2 Mg Tablet, 2 MG PO QHS, TAB 11/21/14 Prochlorperazine* (Prochlorperazine*) 10 Mg Tablet, 10 MG PO Q4 Y for NAUSEA, TAB 11/21/14 Ranitidine Hcl* (Zantac*) 75 Mg Tablet, 75 MG PO BID, TAB 11/21/14 Amlodipine Besylate* (Norvasc*) 5 Mg Tablet, 5 MG PO DAILY, TAB 11/21/14 Atorvastatin Calcium* (Atorvastatin Calcium*) 20 Mg Tablet, 20 MG PO DAILY 11/04/12 Famotidine* (Pepcid*) 20 Mg Tablet, 20 MG PO BID 11/04/12 Venlafaxine Hcl* (Effexor XR*) 150 Mg Cap.sr.24h, 150 MG PO DAILY 11/04/12 Allergies Allergies: Coded Allergies: No Known Allergy (Unverified , 03/25/15) PMhx/Soc History of Surgery: Yes (intestinal surgery, lft fx arm, breast augmentation) Anesthesia Reaction: No Hx Neurological Disorder: Yes (concussion (WARD & Short term memory loss)) Hx Respiratory Disorders: Yes (COPD) Hx Cardiac Disorders: No Hx Psychiatric Problems: Yes (depression) Hx Miscellaneous Medical Probl: No Hx Alcohol Use: No Hx Substance Use: No Hx Tobacco Use: Yes Smoking Status: Current every day smoker FmHx Family History: No coronary disease Physical Exam Vitals Vital Signs Date Time Temp Pulse Resp B/P Pulse Ox O2 Delivery O2 Flow Rate FiO2 04/14/17 07:51 97.8 103 17 110/75 98 Room Air 04/14/17 06:56 97.8 107 22 16/83 98 Physical Exam Const: Well-developed, well-nourished Head: Atraumatic, normocephalic Eyes: Normal Conjunctiva, PERRLA, EOMI, normal sclera, no nystagmus ENT: Normal External Ears, Nose and Mouth, moist mucus membranes. Neck: Full range of motion. No meningismus, no lymphadenopathy. Resp: Clear to auscultation bilaterally, no wheezing, rhonchi, rales Cardio: Regular rate and rhythm, no murmurs, S1 S2 present Abd: Soft, non tender x 4, non distended. Normal bowel sounds, no guarding or rebound, no pulsitile abdominal masses or bruits Skin: No petechiae or rashes, no ecchymosis , no maculopapular rash Back: No midline or flank tenderness Ext: No cyanosis, or edema, FROM x 4, normal inspection, neurovascularly intact x 4 Neur: Awake and alert, STR 5/5 x 4, sensation intact x 4, no focal findings, cerebellum intact Psych: Normal Mood and Affect Result Diagram: 04/14/1744 04/14/1744 Results 24 hrs Laboratory Tests Test 04/14/17 07:44 White Blood Count 8.110^3/ul Red Blood Count 4.1010^6/ul Hemoglobin 13.9g/dl Hematocrit 41.8% Mean Corpuscular Volume 102.0fl Mean Corpuscular Hemoglobin 33.9pg Mean Corpuscular Hemoglobin Concent 33.3g/dl Red Cell Distribution Width 12.4% Platelet Count 53301^3/UL Mean Platelet Volume 10.9fl Neutrophils % 75.1% Lymphocytes % 13.9% Monocytes % 8.9% Eosinophils % 1.0% Basophils % 0.7% Nucleated Red Blood Cells % 0.0/100WBC Neutrophils # 6.110^3/ul Lymphocytes # 1.110^3/ul Monocytes # 0.710^3/ul Eosinophils # 0.110^3/ul Basophils # 0.110^3/ul Nucleated Red Blood Cells # 0.010^3/ul Sodium Level 137mmol/L Potassium Level 4.5mmol/L Chloride Level 100mmol/L Carbon Dioxide Level 24mmol/L Anion Gap 18 Blood Urea Nitrogen 10mg/dl Creatinine 0.92mg/dl Glucose Level 124mg/dl Calcium Level 9.5mg/dl Troponin I < 0.012ng/ml Current Medications Medications (Trade) Dose Ordered Sig/Richard Route PRN Reason Start Time Stop Time Status Last Admin Dose Admin Methylprednisolone Sodium Succinate (Solu-Medrol) 125 mg ONCE ONCE IV 04/14/17 07:30 04/14/17 07:31 DC 04/14/17 07:49 Procedures/MDM PROCEDURE: XR Chest. CLINICAL INDICATION: Chest pain. TECHNIQUE: Single frontal view. COMPARISON: 01/02/2016. FINDINGS: The lungs are clear. The heart size is normal. There is calcification in the aorta consistent with atherosclerosis. There is no pleural effusion or pneumothorax. There are bilateral breast implants. IMPRESSION: 1. No change from 01/02/2016. RPTAT: QQ .Jim Lockwood MD, MD Date Time Electronically viewed and signed by .Jim Lockwood MD, on 04/14/2017 08:02 .R/ CC: KALA SAUNDERS DO EKG: Rate/Rhythm: Sinus tachycardia heart rate 105 QRS, ST, QT: NORMAL MI, QRS, QT] Impression: [NORMAL EKG] Patient has no evidence of pneumonia no positive troponin Patient has bronchitis/URI we will discharge home with cough syrup as bronchitis treatment Departure Diagnosis: Primary Impression: Bronchitis Condition: Stable Patient Instructions: Bronchitis, Antiobiotic Treatment (Adult) KALA SAUNDERS DO Apr 14, 2017 10:23
[2017-04-14 10:27] VITALS: PULSE 99; RESP 22
== END 2017-04-14 10:33 | disposition home or self-care (01) ==
LOC: E/R 06:52
DX: J20.9 Acute bronchitis, unspecified (principal); J44.9 Chronic obstructive pulmonary disease, unspecified; F17.210 Nicotine dependence, cigarettes, uncomplicated; R40.2142 Coma scale, eyes open, spontaneous, at arrival to emergency department; R40.2252 Coma scale, best verbal response, oriented, at arrival to emergency department; R40.2362 Coma scale, best motor response, obeys commands, at arrival to emergency department
CPT/HCPCS: 36415; 71010; 80048; 84484; 85025; 93005; 96374; 99285; J2930

== ENCOUNTER 2017-04-25 17:36 | Inpatient (IN) | payer MEDICARE, OTHER ==
[~2017-04-25] VITALS: Ht 160 cm; Wt 51.2 kg
[~2017-04-25 17:36] MED LIST changes: +ALBU8.5H3 INH; +AZIT250T94 PO; +HYDR15SO8 PO; +PRED20TA PO
[2017-04-25] MEDS ORDERED: ONDANSETRON 4 MG INJ IV STA (21:21)
[2017-04-25] MEDS ORDERED: morphine 4 MG/ML VIAL IV STA (21:21)
[2017-04-25] MEDS ORDERED: SOD CHLORIDE 0.9% 1,000 ML IV STA (21:21)
[2017-04-25] MEDS ORDERED: IBUP-1542 PO (23:10)
--- NOTE | 2017-04-25 23:15 | ERD ---
ER Documentation Chief Complaint Chief Complaint ABBD PAIN X 1 YEAR "THERE'S A GROWTH IN MY STOMACH" HPI 72-year-old woman complaining of abdominal pain 1 year constant, daily. She states the pain has gotten worse than previous episodes recently, and states her abdominal discomfort is hypogastric and feels like a "mass". Patient states she has had clear nonbloody nonbilious emesis no diarrhea, she feels constipated, no blood per rectum or melena. Patient denies chest pain or shortness of breath. No fevers or chills, no headache or blurry vision. ROS All systems reviewed and are negative except as per history of present illness. Medications Home Meds Active Scripts Prednisone (Prednisone) 20 Mg Tab, 40 MG PO DAILY for 4 Days, TAB Prov:MAMTA CHACKO MD 04/25/17 Albuterol Sulfate* (Proair HFA*) 8.5 Gm Hfa.aer.ad, 2 PUFF INH Q6H Y for WHEEZING AND SOB, #1 INHALER Prov:MAMTA CHACKO MD 04/25/17 Ibuprofen* (Ibuprofen*) 600 Mg Tablet, 600 MG PO Q8 for PAIN AND/OR INFLAMMATION , #30 TAB Prov:MAMTA CHACKO MD 04/25/17 Albuterol Sulfate* (Proair HFA*) 8.5 Gm Hfa.aer.ad, 2 PUFF INH Q4, #1 INHALER Prov:KALA SAUNDERS DO 04/14/17 Prednisone* (Prednisone*) 20 Mg Tab, 60 MG PO DAILY for 5 Days, TAB Prov:KALA SAUNDERS DO 04/14/17 Hydrocodone Bit-Acetaminophen* (Lortab* Liq) 7.5 Mg-325 Mg/15 Ml Solution, 15 ML PO Q6H Y for cou, #120 ML Prov:KALA SAUNDERS DO 04/14/17 Azithromycin* (Zithromax*) 250 Mg Tablet, 250 MG PO .SamPACK DIRECTED, #6 TAB TAKE 500 MG (2 TABS) THE FIRST DAY THEN 250 MG (1 TAB) DAYS 2-5 Prov:KALA SAUNDERS DO 04/14/17 Naproxen* (Naproxen*) 375 Mg Tablet, 375 MG PO BID Y for PAIN, #8 TAB Prov:JERAMY MAN DO 01/10/17 Ondansetron (Zofran Odt) 4 Mg Tab.rapdis, 4 MG PO Q6 for NAUSEA, #10 Prov:JERAMY MAN DO 01/10/17 Polyethylene Glycol* (Miralax*) 17 Gm Powd.pack, 17 GM PO DAILY, #7 Prov:JERAMY MAN DO 01/10/17 Magnesium Citrate* (Magnesium Citrate*) 296 Ml Solution, 296 ML PO ONCE, #1 BOTTLE Prov:JERAMY MAN DO 01/10/17 Hydrocortisone* Topical (Hydrocortisone* Topical) 2.5%-28.3 Gm Cream..g., 1 APPLIC TOP BID, #1 TUB Prov:PECAE HERNANDEZ MD 11/12/16 Sulfamethoxazole/Trimethoprim* (Bactrim Ds* Tablet) 1 Each Tablet, 1 TAB PO BID , #7 TAB Prov:PEACE HERNANDEZ MD 11/12/16 Cephalexin* (Keflex*) 500 Mg Capsule, 500 MG PO QID for 7 Days, CAP Prov:PEACE HERNANDEZ MD 11/12/16 Clonazepam* (Clonazepam*) 2 Mg Tablet, 2 MG PO BID, #10 TAB Prov:ANDREAS RANGEL 07/28/16 Hydrocortisone Acetate* (Anusol-HC*) 25 Mg/Supp.rect Supp.rect, 1 SUPP NV HS, # 12 SUPP.RECT Prov:PEACE HERNANDEZ MD 01/02/16 Tramadol HCl (Tramadol HCl) 50 Mg Tab, 50 MG PO Q4 Y for PAIN, #20 TAB Prov:LELAND STOREY PA-C 04/21/15 Cyclobenzaprine Hcl* (Cyclobenzaprine Hcl*) 10 Mg Tablet, 10 MG PO TID, #15 TAB Prov:VIRIDIANA MILLS [employer] 03/28/15 Naproxen* (Naprosyn*) 500 Mg Tablet, 500 MG PO BID Y for PAIN AND/OR INFLAMMATION, #30 TAB Prov:VIRIDIANA MILLS. [employer] 03/28/15 Tramadol HCl (Tramadol HCl) 50 Mg Tab, 50 MG PO Q6, #8 TAB Prov:LANG STEVENS MD 03/25/15 Reported Medications Clonazepam* (Clonazepam*) 2 Mg Tablet, 2 MG PO QHS, TAB 11/21/14 Prochlorperazine* (Prochlorperazine*) 10 Mg Tablet, 10 MG PO Q4 Y for NAUSEA, TAB 11/21/14 Ranitidine Hcl* (Zantac*) 75 Mg Tablet, 75 MG PO BID, TAB 11/21/14 Amlodipine Besylate* (Norvasc*) 5 Mg Tablet, 5 MG PO DAILY, TAB 11/21/14 Atorvastatin Calcium* (Atorvastatin Calcium*) 20 Mg Tablet, 20 MG PO DAILY 11/04/12 Famotidine* (Pepcid*) 20 Mg Tablet, 20 MG PO BID 11/04/12 Venlafaxine Hcl* (Effexor XR*) 150 Mg Cap.sr.24h, 150 MG PO DAILY 11/04/12 Allergies Allergies: Coded Allergies: No Known Allergy (Unverified , 03/25/15) PMhx/Soc COPD, hypertension, chronic abdominal pain, abdominal aortic aneurysm History of Surgery: Yes (intestinal surgery, lft fx arm, breast augmentation) Anesthesia Reaction: No Hx Neurological Disorder: Yes (concussion (WARD & Short term memory loss)) Hx Respiratory Disorders: Yes (COPD) Hx Cardiac Disorders: No Hx Psychiatric Problems: Yes (depression) Hx Miscellaneous Medical Probl: No Hx Alcohol Use: No Hx Substance Use: No Hx Tobacco Use: Yes Smoking Status: Never smoker FmHx Family History: No diabetes Physical Exam Vitals Vital Signs Date Time Temp Pulse Resp B/P Pulse Ox O2 Delivery O2 Flow Rate FiO2 04/25/17 23:36 83 18 93 21 04/25/17 23:25 98.3 89 18 132/75 98 Room Air 04/25/17 20:45 98.0 80 18 137/84 100 Room Air 04/25/17 17:40 98.0 78 18 148/71 98 Physical Exam GENERAL: Well-developed, well-nourished, appears dehydrated, afebrile HEENT: Dry mucous membranes, pink conjunctiva, no cervical spine tenderness or step-off deformities, no goiter, no jaundice or icterus, extraocular movements intact without pain. No submandibular induration, and no pharyngeal erythema NEURO: Alert and oriented 3, cranial nerves II through XII intact bilaterally, pupils equal round reactive to light, no focal deficits or facial asymmetry, sensation intact distally Strength 5/5 in upper and lower extremities bilaterally CARDIAC: Regular rate and rhythm, no murmurs rubs or gallops LUNGS: Clear bilaterally no wheezing crackles or stridor ABDOMEN: Soft nontender, no guarding, no rigidity, no rebound, no psoas sign no obturator sign. Normoactive bowel sounds. No palpable mass appreciated. SKIN: Warm and dry to touch, surgical cicatrix longitudinally over the midabdomen, no abrasions, contusions, or hematomas, no lacerations, no ecchymosis, no target lesions, and without ulcers EXTREMITIES: No clubbing cyanosis or edema, calves are bilaterally symmetrical, no Homans sign, no popliteal cord sign. Distal pulses equal and bilateral PSYCH: Normal affect without agitation or irritability Result Diagram: 04/25/17 2100 04/25/17 2100 Results 24 hrs Laboratory Tests Test 04/25/17 21:00 White Blood Count 9.310^3/ul Red Blood Count 3.8510^6/ul Hemoglobin 13.1g/dl Hematocrit 38.4% Mean Corpuscular Volume 99.7fl Mean Corpuscular Hemoglobin 34.0pg Mean Corpuscular Hemoglobin Concent 34.1g/dl Red Cell Distribution Width 12.7% Platelet Count 54729^3/UL Mean Platelet Volume 10.2fl Neutrophils % 51.2% Lymphocytes % 38.0% Monocytes % 8.2% Eosinophils % 1.9% Basophils % 0.5% Nucleated Red Blood Cells % 0.0/100WBC Neutrophils # 4.710^3/ul Lymphocytes # 3.510^3/ul Monocytes # 0.810^3/ul Eosinophils # 0.210^3/ul Basophils # 0.110^3/ul Nucleated Red Blood Cells # 0.010^3/ul Prothrombin Time 12.1Sec Prothrombin Time Ratio 0.9 INR International Normalized Ratio 0.90 Sodium Level 134mmol/L Potassium Level 3.7mmol/L Chloride Level 98mmol/L Carbon Dioxide Level 24mmol/L Anion Gap 16 Blood Urea Nitrogen 10mg/dl Creatinine 0.80mg/dl Glucose Level 111mg/dl Calcium Level 9.6mg/dl Total Bilirubin 0.3mg/dl Direct Bilirubin 0.00mg/dl Indirect Bilirubin 0.3mg/dl Aspartate Amino Transf (AST/SGOT) 31IU/L Alanine Aminotransferase (ALT/SGPT) 38IU/L Alkaline Phosphatase 71IU/L Troponin I < 0.012ng/ml Total Protein 7.6g/dl Albumin 4.6g/dl Globulin 3.00g/dl Albumin/Globulin Ratio 1.53 Lipase 71U/L Current Medications Medications (Trade) Dose Ordered Sig/Richard Route PRN Reason Start Time Stop Time Status Last Admin Dose Admin Sodium Chloride (NS) 1,000 ml @ 2,000 mls/hr Q30M STAT IV 04/25/17 21:21 04/25/17 21:50 DC 04/25/17 21:59 Morphine Sulfate (morphine) 4 mg ONCE STAT IV 04/25/17 21:21 04/25/17 21:22 DC 04/25/17 21:59 Ondansetron HCl (Zofran Inj) 4 mg ONCE STAT IV 04/25/17 21:21 04/25/17 21:22 DC 04/25/17 21:59 Albuterol (Proventil 0.083% (Neb)) 10 mg ONCE ONCE HHN 04/25/17 23:20 04/25/17 23:21 DC 04/25/17 23:36 Prednisone (Prednisone) 40 mg ONCE ONCE PO 04/25/17 23:30 04/25/17 23:31 DC Procedures/[facility] IV line was established patient was placed on baby attendant rhythm strip revealed a sinus rhythm at about 80 bpm with upright P and T waves. Patient was afebrile I administered 2 L normal saline intravenously for dehydration, morphine 4 mg IV , Zofran 4 mg IV with good response. CBC and electrolytes are normal, liver function tests are normal. EKG performed, read by me: 91 bpm, normal sinus rhythm, normal axis, no acute ST segment changes, narrow QRS complex, with good R-wave progression in precordial leads. CT scan of the abdomen and pelvis was performed, given the patient's symptoms. There is a 4.1 infrarenal abdominal aortic aneurysm which has grown since January 10. CT scan of the abdomen and pelvis performed 01/10/2017 showed that there is an abdominal aortic aneurysm measuring 3.2 cm in AP diameter, unchanged in comparison to 11/21/2014. While here patient developed mild wheezing bilaterally and I treated her with albuterol 10 mg via nebulizer and prednisone 40 mg p.o. 1 with good effect. Patient's infra aortic abdominal aneurysm has grown in size over the last 3-1/2 months, she will be admitted for continued medical management and vascular surgery consultation. I consulted vascular surgeon Dr. Salty Mckeon regarding the patient's presentation and symptomatology, and imaging studies he recommended CT scan of the abdomen and pelvis with IV contrast with lower extremity runoff, and agreed to consult the patient in the morning. Departure Diagnosis: Primary Impression: Dehydration Additional Impressions: COPD (chronic obstructive pulmonary disease) COPD type: COPD with acute exacerbation Qualified Code: J44.1 - Chronic obstructive pulmonary disease with acute exacerbation Aneurysm of infrarenal abdominal aorta Condition: Fair Patient Instructions: Abdominal Pain Referrals: BHARATI TIRADO (PCP) MAMTA CHACKO MD Apr 25, 2017 23:15 MAMTA CHACKO MD Apr 25, 2017 23:15
--- NOTE | 2017-04-25 23:15 | ERD ---
ER Documentation Chief Complaint Chief Complaint ABBD PAIN X 1 YEAR "THERE'S A GROWTH IN MY STOMACH" HPI 72-year-old woman complaining of abdominal pain 1 year constant, daily. She states the pain has gotten worse than previous episodes recently, and states her abdominal discomfort is hypogastric and feels like a "mass". Patient states she has had clear nonbloody nonbilious emesis no diarrhea, she feels constipated, no blood per rectum or melena. Patient denies chest pain or shortness of breath. No fevers or chills, no headache or blurry vision. ROS All systems reviewed and are negative except as per history of present illness. Medications Home Meds Active Scripts Prednisone (Prednisone) 20 Mg Tab, 40 MG PO DAILY for 4 Days, TAB Prov:MAMTA CHACKO MD 04/25/17 Albuterol Sulfate* (Proair HFA*) 8.5 Gm Hfa.aer.ad, 2 PUFF INH Q6H Y for WHEEZING AND SOB, #1 INHALER Prov:MAMTA CHACKO MD 04/25/17 Ibuprofen* (Ibuprofen*) 600 Mg Tablet, 600 MG PO Q8 for PAIN AND/OR INFLAMMATION , #30 TAB Prov:MAMTA CHACKO MD 04/25/17 Albuterol Sulfate* (Proair HFA*) 8.5 Gm Hfa.aer.ad, 2 PUFF INH Q4, #1 INHALER Prov:KALA SAUNDERS DO 04/14/17 Prednisone* (Prednisone*) 20 Mg Tab, 60 MG PO DAILY for 5 Days, TAB Prov:KALA SAUNDERS DO 04/14/17 Hydrocodone Bit-Acetaminophen* (Lortab* Liq) 7.5 Mg-325 Mg/15 Ml Solution, 15 ML PO Q6H Y for cou, #120 ML Prov:KALA SAUNDERS DO 04/14/17 Azithromycin* (Zithromax*) 250 Mg Tablet, 250 MG PO .SamPACK DIRECTED, #6 TAB TAKE 500 MG (2 TABS) THE FIRST DAY THEN 250 MG (1 TAB) DAYS 2-5 Prov:KALA SAUDNERS DO 04/14/17 Naproxen* (Naproxen*) 375 Mg Tablet, 375 MG PO BID Y for PAIN, #8 TAB Prov:JERAMY MAN DO 01/10/17 Ondansetron (Zofran Odt) 4 Mg Tab.rapdis, 4 MG PO Q6 for NAUSEA, #10 Prov:JERAMY MAN DO 01/10/17 Polyethylene Glycol* (Miralax*) 17 Gm Powd.pack, 17 GM PO DAILY, #7 Prov:JERAMY MAN DO 01/10/17 Magnesium Citrate* (Magnesium Citrate*) 296 Ml Solution, 296 ML PO ONCE, #1 BOTTLE Prov:JERAMY MAN DO 01/10/17 Hydrocortisone* Topical (Hydrocortisone* Topical) 2.5%-28.3 Gm Cream..g., 1 APPLIC TOP BID, #1 TUB Prov:PEACE HERNANDEZ MD 11/12/16 Sulfamethoxazole/Trimethoprim* (Bactrim Ds* Tablet) 1 Each Tablet, 1 TAB PO BID , #7 TAB Prov:PEACE HERNANDEZ MD 11/12/16 Cephalexin* (Keflex*) 500 Mg Capsule, 500 MG PO QID for 7 Days, CAP Prov:PEACE HERNANDEZ MD 11/12/16 Clonazepam* (Clonazepam*) 2 Mg Tablet, 2 MG PO BID, #10 TAB Prov:ANDREAS RANGEL 07/28/16 Hydrocortisone Acetate* (Anusol-HC*) 25 Mg/Supp.rect Supp.rect, 1 SUPP ND HS, # 12 SUPP.RECT Prov:PEACE HERNANDEZ MD 01/02/16 Tramadol HCl (Tramadol HCl) 50 Mg Tab, 50 MG PO Q4 Y for PAIN, #20 TAB Prov:LELAND STOREY PA-C 04/21/15 Cyclobenzaprine Hcl* (Cyclobenzaprine Hcl*) 10 Mg Tablet, 10 MG PO TID, #15 TAB Prov:VIRIDIANA MILLS TELE[employer] BILLING ANALYST 03/28/15 Naproxen* (Naprosyn*) 500 Mg Tablet, 500 MG PO BID Y for PAIN AND/OR INFLAMMATION, #30 TAB Prov:VIRIDIANA MILLS. TELECOM BILLING ANALYST 03/28/15 Tramadol HCl (Tramadol HCl) 50 Mg Tab, 50 MG PO Q6, #8 TAB Prov:LANG STEVENS MD 03/25/15 Reported Medications Clonazepam* (Clonazepam*) 2 Mg Tablet, 2 MG PO QHS, TAB 11/21/14 Prochlorperazine* (Prochlorperazine*) 10 Mg Tablet, 10 MG PO Q4 Y for NAUSEA, TAB 11/21/14 Ranitidine Hcl* (Zantac*) 75 Mg Tablet, 75 MG PO BID, TAB 11/21/14 Amlodipine Besylate* (Norvasc*) 5 Mg Tablet, 5 MG PO DAILY, TAB 11/21/14 Atorvastatin Calcium* (Atorvastatin Calcium*) 20 Mg Tablet, 20 MG PO DAILY 11/04/12 Famotidine* (Pepcid*) 20 Mg Tablet, 20 MG PO BID 11/04/12 Venlafaxine Hcl* (Effexor XR*) 150 Mg Cap.sr.24h, 150 MG PO DAILY 11/04/12 Allergies Allergies: Coded Allergies: No Known Allergy (Unverified , 03/25/15) PMhx/Soc COPD, hypertension, chronic abdominal pain, abdominal aortic aneurysm History of Surgery: Yes (intestinal surgery, lft fx arm, breast augmentation) Anesthesia Reaction: No Hx Neurological Disorder: Yes (concussion (WARD & Short term memory loss)) Hx Respiratory Disorders: Yes (COPD) Hx Cardiac Disorders: No Hx Psychiatric Problems: Yes (depression) Hx Miscellaneous Medical Probl: No Hx Alcohol Use: No Hx Substance Use: No Hx Tobacco Use: Yes Smoking Status: Never smoker FmHx Family History: No diabetes Physical Exam Vitals Vital Signs Date Time Temp Pulse Resp B/P Pulse Ox O2 Delivery O2 Flow Rate FiO2 04/25/17 23:36 83 18 93 21 04/25/17 23:25 98.3 89 18 132/75 98 Room Air 04/25/17 20:45 98.0 80 18 137/84 100 Room Air 04/25/17 17:40 98.0 78 18 148/71 98 Physical Exam GENERAL: Well-developed, well-nourished, appears dehydrated, afebrile HEENT: Dry mucous membranes, pink conjunctiva, no cervical spine tenderness or step-off deformities, no goiter, no jaundice or icterus, extraocular movements intact without pain. No submandibular induration, and no pharyngeal erythema NEURO: Alert and oriented 3, cranial nerves II through XII intact bilaterally, pupils equal round reactive to light, no focal deficits or facial asymmetry, sensation intact distally Strength 5/5 in upper and lower extremities bilaterally CARDIAC: Regular rate and rhythm, no murmurs rubs or gallops LUNGS: Clear bilaterally no wheezing crackles or stridor ABDOMEN: Soft nontender, no guarding, no rigidity, no rebound, no psoas sign no obturator sign. Normoactive bowel sounds. No palpable mass appreciated. SKIN: Warm and dry to touch, surgical cicatrix longitudinally over the midabdomen, no abrasions, contusions, or hematomas, no lacerations, no ecchymosis, no target lesions, and without ulcers EXTREMITIES: No clubbing cyanosis or edema, calves are bilaterally symmetrical, no Homans sign, no popliteal cord sign. Distal pulses equal and bilateral PSYCH: Normal affect without agitation or irritability Result Diagram: 04/25/17 2100 04/25/17 2100 Results 24 hrs Laboratory Tests Test 04/25/17 21:00 White Blood Count 9.310^3/ul Red Blood Count 3.8510^6/ul Hemoglobin 13.1g/dl Hematocrit 38.4% Mean Corpuscular Volume 99.7fl Mean Corpuscular Hemoglobin 34.0pg Mean Corpuscular Hemoglobin Concent 34.1g/dl Red Cell Distribution Width 12.7% Platelet Count 14966^3/UL Mean Platelet Volume 10.2fl Neutrophils % 51.2% Lymphocytes % 38.0% Monocytes % 8.2% Eosinophils % 1.9% Basophils % 0.5% Nucleated Red Blood Cells % 0.0/100WBC Neutrophils # 4.710^3/ul Lymphocytes # 3.510^3/ul Monocytes # 0.810^3/ul Eosinophils # 0.210^3/ul Basophils # 0.110^3/ul Nucleated Red Blood Cells # 0.010^3/ul Prothrombin Time 12.1Sec Prothrombin Time Ratio 0.9 INR International Normalized Ratio 0.90 Sodium Level 134mmol/L Potassium Level 3.7mmol/L Chloride Level 98mmol/L Carbon Dioxide Level 24mmol/L Anion Gap 16 Blood Urea Nitrogen 10mg/dl Creatinine 0.80mg/dl Glucose Level 111mg/dl Calcium Level 9.6mg/dl Total Bilirubin 0.3mg/dl Direct Bilirubin 0.00mg/dl Indirect Bilirubin 0.3mg/dl Aspartate Amino Transf (AST/SGOT) 31IU/L Alanine Aminotransferase (ALT/SGPT) 38IU/L Alkaline Phosphatase 71IU/L Troponin I < 0.012ng/ml Total Protein 7.6g/dl Albumin 4.6g/dl Globulin 3.00g/dl Albumin/Globulin Ratio 1.53 Lipase 71U/L Current Medications Medications (Trade) Dose Ordered Sig/Richard Route PRN Reason Start Time Stop Time Status Last Admin Dose Admin Sodium Chloride (NS) 1,000 ml @ 2,000 mls/hr Q30M STAT IV 04/25/17 21:21 04/25/17 21:50 DC 04/25/17 21:59 Morphine Sulfate (morphine) 4 mg ONCE STAT IV 04/25/17 21:21 04/25/17 21:22 DC 04/25/17 21:59 Ondansetron HCl (Zofran Inj) 4 mg ONCE STAT IV 04/25/17 21:21 04/25/17 21:22 DC 04/25/17 21:59 Albuterol (Proventil 0.083% (Neb)) 10 mg ONCE ONCE HHN 04/25/17 23:20 04/25/17 23:21 DC 04/25/17 23:36 Prednisone (Prednisone) 40 mg ONCE ONCE PO 04/25/17 23:30 04/25/17 23:31 DC Procedures/[facility] IV line was established patient was placed on threat monitoring analyst rhythm strip revealed a sinus rhythm at about 80 bpm with upright P and T waves. Patient was afebrile I administered 2 L normal saline intravenously for dehydration, morphine 4 mg IV , Zofran 4 mg IV with good response. CBC and electrolytes are normal, liver function tests are normal. EKG performed, read by me: 91 bpm, normal sinus rhythm, normal axis, no acute ST segment changes, narrow QRS complex, with good R-wave progression in precordial leads. CT scan of the abdomen and pelvis was performed, given the patient's symptoms. There is a 4.1 infrarenal abdominal aortic aneurysm which has grown since January 10. CT scan of the abdomen and pelvis performed 01/10/2017 showed that there is an abdominal aortic aneurysm measuring 3.2 cm in AP diameter, unchanged in comparison to 11/21/2014. While here patient developed mild wheezing bilaterally and I treated her with albuterol 10 mg via nebulizer and prednisone 40 mg p.o. 1 with good effect. Patient's infra aortic abdominal aneurysm has grown in size over the last 3-1/2 months, she will be admitted for continued medical management and vascular surgery consultation. I consulted vascular surgeon Dr. Salty Mckeon regarding the patient's presentation and symptomatology, and imaging studies he recommended CT scan of the abdomen and pelvis with IV contrast with lower extremity runoff, and agreed to consult the patient in the morning. Departure Diagnosis: Primary Impression: Dehydration Additional Impressions: COPD (chronic obstructive pulmonary disease) COPD type: COPD with acute exacerbation Qualified Code: J44.1 - Chronic obstructive pulmonary disease with acute exacerbation Aneurysm of infrarenal abdominal aorta Condition: Fair Patient Instructions: Abdominal Pain Referrals: BHARATI TIRADO (PCP) MAMTA CHACKO MD Apr 25, 2017 23:15 MAMTA CHACKO MD Apr 25, 2017 23:15
[2017-04-25] MEDS ORDERED: PRED20TA PO (23:17)
[2017-04-25] MEDS ORDERED: ALBU8.5H3 INH (23:17)
[2017-04-25] MEDS ORDERED: ALBUTEROL 0.083% (NEB) 2.5 MG/3 ML AMP HHN ONE (23:20)
--- NOTE | 2017-04-25 23:24 | RADRPT ---
PROCEDURE: CT abdomen and pelvis without contrast. CLINICAL INDICATION: Abdominal pain. TECHNIQUE: CT of the abdomen and pelvis without contrast was performed on a multidetector high-reso lution CT scanner. Coronal and sagittal reformatted images were obtained from the axial source image s. Images were reviewed on a high-resolution PACS workstation. The total exam CTDI equals 01 mGy and the total exam DLP equals 193.53 mGy-cm. One or more of the following dose reduction techniques were used: - Automated exposure control. - Adjustment of the mA and/or kV according to patient size. - Use of iterative reconstruction technique. COMPARISON: CT dated 01/10/2017. FINDINGS: Visualized lower thorax: There is moderate centrilobular emphysema. There is subsegmental atelectas is in the right lower lobe. There are coronary artery calcifications. The visualized heart is otherw ise unremarkable. Hepatobiliary system and spleen: The liver is grossly unremarkable. There is no intra or extrahepat ic biliary ductal dilatation. The gallbladder is grossly unremarkable. The spleen is grossly unremar kable. The pancreas is grossly unremarkable. Adrenal glands and genitourinary system: There is a 1.6 cm right adrenal adenoma. The left adrenal gland is grossly unremarkable. There is no nephrolithiasis or hydronephrosis. The urinary bladder is distended, but otherwise unremarkable. The uterus and adnexa are grossly unremarkable. Gastrointestinal system: There is sigmoid diverticulosis without evidence of diverticulitis. There is a moderate volume of stool throughout the colon, suggestive of constipation. There is no bowel wa ll thickening or evidence of obstruction. The appendix is in the right lower quadrant and is unremar kable. Peritoneum, vascular, and lymphatics: There is no free intraperitoneal air or free fluid. There is no mesenteric or retroperitoneal adenopathy. There is a fusiform infrarenal abdominal aortic aneurys m measuring 4.1 cm in diameter. There are atherosclerotic changes of the aorta and its branch vessel s. Musculoskeletal system and soft tissues: There is lower lumbar dextroscoliosis and moderate to lisette re multilevel degenerative enthesopathy. There is severe facet arthropathy in the lower lumbar spine with associated grade 1 anterolisthesis of L4 on L5. There are no concerning osseous lesions. The s oft tissues are unremarkable. IMPRESSION: 1. Moderate centrilobular emphysema. 2. Multivessel coronary artery calcifications and atherosclerotic changes of the aorta. 3. Benign 1.6 cm right adrenal adenoma. 4. Sigmoid diverticulosis without evidence of diverticulitis. 5. Moderate volume of stool throughout the colon, suggestive of constipation. 6. Infrarenal abdominal aortic aneurysm measuring 4.1 cm in diameter. This can be further evaluated with CT angiography. 7. Grade 1 anterolisthesis of L4 on L5 secondary to severe lumbar facet arthropathy. Moderate to se tamica multilevel degenerative enthesopathy. RPTAT: HLBP .Gui Rain MD, Date Time Electronically viewed and signed by .Gui Rain MD, on 04/25/2017 23:24 .P/
[2017-04-25] MEDS ORDERED: predniSONE 20 MG TAB PO ONE (23:30)
[2017-04-26] VITALS (9 sets, daily range): BP systolic 113–136; BP diastolic 72–80; PULSE 70–93; RESP 18; TEMP 98.3; Ht 160 cm; Wt 51.2 kg
[2017-04-26] MEDS ORDERED: SOD CHLORIDE 0.9% 100 ML ONE (00:16)
[2017-04-26] MEDS ORDERED: IOHEXOL 100 ML ONE (00:16)
[2017-04-26] MEDS ORDERED: IOHEXOL 350MG/ML 50 ML BTL ONE (00:16)
[2017-04-26] MEDS ORDERED: ALBU18HF INHALATION (00:25)
[2017-04-26] MEDS ORDERED: ACETAMINOPHEN 325 MG TAB PO PRN (01:00)
[2017-04-26] MEDS ORDERED: hydrALAzine 20 MG INJ IV PRN (01:00)
[2017-04-26] MEDS ORDERED: DOCUSATE SODIUM 100 MG CAP PO PRN (01:00)
[2017-04-26] MEDS ORDERED: BISACODYL 10 MG SUPP PR PRN (01:00)
[2017-04-26] MEDS ORDERED: ALBUTEROL HFA 8 GM INHALER INH PRN (01:00)
[2017-04-26] MEDS ORDERED: NACL 0.9% 3 ML SYG IV SCH (01:00)
[2017-04-26] MEDS ORDERED: ONDANSETRON 4 MG INJ IV PRN (01:00)
--- NOTE | 2017-04-26 01:07 | RADRPT ---
PROCEDURE: CTA abdomen and pelvis with lower extremity runoff CLINICAL INDICATION: Abdominal aortic aneurysm. TECHNIQUE: A CT angiogram of the abdomen and pelvis with lower extremity runoff was performed with intravenous contrast. The patient was scanned following the uncomplicated intravenous administrati on of 120 cc of Omnipaque 350. Coronal MIP, coronal, sagittal reformatted images were obtained from the axial source images. Images were reviewed on a high-resolution PACS workstation. CTDIvol: 57.51 , 4.17 mGy. DLP: 561.07 mGy-cm. One or more of the following dose reduction techniques were used: Automated exposure control. Adjustment of the mA and/or kV according to patient size. Use of iterative reconstruction technique. COMPARISON: Noncontrast CT of the abdomen and pelvis dated 04/25/2017. FINDINGS: CT angiogram: There is an infrarenal abdominal aortic aneurysm measuring up to 4.5 cm in diameter. A small to moderate amount of mural thrombus is seen within the aneurysm sac. No aortic dissection i s identified. There is mild to moderate calcified atherosclerotic plaque along the aorta and bilater al iliac arteries, without significant stenosis. The celiac and superior mesenteric arteries are wid fredo patent. There is mild calcified atherosclerotic plaque at both renal artery origins, without sig nificant stenosis. The inferior mesenteric artery arises from the aneurysm sac, and the inferior mes enteric artery origin is not clearly visualized due to calcified plaque in this region. The more dis allie inferior mesenteric artery fills normally with contrast, however. The right common femoral, deep femoral, superficial femoral, popliteal, anterior tibial, posterior t ibial, peroneal, and dorsalis pedis arteries are widely patent. The right peroneal artery is not opa cified beyond the level of the ankle, probably due to phase of intravenous contrast. The left common femoral, deep femoral, superficial femoral, popliteal, anterior tibial, posterior ti bial, peroneal, and dorsalis pedis arteries are widely patent. The left peroneal artery is not opaci fied beyond the level of the ankle, probably due to phase of intravenous contrast. CT abdomen and pelvis: Again seen is moderate centrilobular emphysema in the lower lungs. There are mild atelectatic changes in both lung bases. Small to moderate bilateral fat containing Bochdalek h ernias are also noted. The liver, gallbladder, spleen, pancreas, and right adrenal gland are unremarkable. A 1.6 cm left ad renal adenoma is unchanged There are cysts in both kidneys measuring up to 2.0 cm on the left. The small bowel is normal in caliber. No bowel inflammation is seen. There is mild to moderate si gmoid colon diverticulosis. The appendix is normal. The urinary bladder and female pelvic organs are grossly unremarkable. There is no ascites. There is no abdominal or pelvic lymphadenopathy. No pneumoperitoneum is seen. No intraperitoneal in flammation or mass is identified. No arterial calcifications are seen. There is no suspicious osseous lesion. Degenerative changes are noted along the lower lumbar spine. IMPRESSION: 1. 4.5 cm infrarenal abdominal aortic aneurysm. 2. Normal bilateral lower extremity arterial runoff. 3. No intra-abdominal inflammation or lymphadenopathy. 4. 1.6 cm left adrenal adenoma. 5. Mild to moderate sigmoid colon diverticulosis. RPTAT: HTAR .Zeus Pinto MD, MD Date Time Electronically viewed and signed by .Zeus Pinto MD, MD on 04/26/2017 01:07 .R/
[2017-04-26] MEDS: HYDROCODONE/APAP (5/325) TAB PO PRN ×2 (02:35→08:03)
[2017-04-26] MEDS: ALBUTEROL HFA 8 GM INHALER INH SCH ×3 (05:49→13:29)
[2017-04-26] MEDS ORDERED: traMADol 50 MG TAB PO SCH (06:00)
[2017-04-26] MEDS ORDERED: DOCUSATE SODIUM 100 MG CAP PO SCH ×2 (07:30)
[2017-04-26] MEDS ORDERED: POLYETHYLENE GLYCOL 17 GM PACKET PO SCH ×2 (07:30)
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
[2017-04-26] MEDS ORDERED: VENLAFAXINE (XR) 75 MG CAP PO SCH (09:00)
[2017-04-26] MEDS ORDERED: RANITIDINE 150 MG TAB PO SCH (09:00)
[2017-04-26] MEDS ORDERED: AMLODIPINE 5 MG TAB PO SCH (09:00)
[2017-04-26] MEDS ORDERED: HYDROCORTISONE 2.5% 20 GM CR TOP SCH (09:00)
[2017-04-26] MEDS: traMADol 50 MG TAB PO PRN ×2 (10:05→15:15)
[2017-04-26] MEDS: CYCLOBENZAPRINE 10 MG TAB PO SCH ×2 (10:05→13:29)
[2017-04-26] MEDS ORDERED: clonAZEPAM 0.5 MG TAB PO SCH ×2 (11:00→21:00)
[2017-04-26] MEDS ORDERED: HYDROCODONE/APAP (5/325) TAB PO PRN (13:30)
--- NOTE | 2017-04-26 15:00 | PN ---
Date/Time of Note Date/Time of Note DATE: 04/26/17 TIME: 14:57 Assessment/Plan VTE Prophylaxis VTE Prophylaxis Intervention: SCD's Lines/Catheters Urinary Cath still in place: No Assessment/Plan Assessment/Plan 72 yo F admitted for chronic abd pain 2/2 constipation incidentally found to have 4.5 cm aaa. #AAA -vascular surgery to see -switch BP regimen from ccb to bb as goal HR is 60 in setting of AAA #constipation: resolved with bowel regimen continued PCP follow up #chronic pain and anxiety: cont home meds Exam/Review of Systems Vital Signs Vitals Vital Signs Date Time Temp Pulse Resp B/P Pulse Ox O2 Delivery O2 Flow Rate FiO2 04/26/17 12:05 88 04/26/17 11:33 97.6 18 136/80 93 04/26/17 08:34 Nasal Cannula 2.0 04/25/17 23:36 21 Intake and Output 04/25/17 04/25/17 04/26/17 15:00 23:00 07:00 Intake Total 420 ml Output Total 350 ml Balance 70 ml Results Result Diagram: 04/26/17 0503 04/26/17 0503 Results 24 hrs Laboratory Tests Test 04/25/17 21:00 04/26/17 00:24 04/26/17 05:03 White Blood Count 9.3 7.4 # Red Blood Count 3.85 L 3.88 L Hemoglobin 13.1 12.8 Hematocrit 38.4 39.0 Mean Corpuscular Volume 99.7 100.5 Mean Corpuscular Hemoglobin 34.0 H 33.0 Mean Corpuscular Hemoglobin Concent 34.1 32.8 Red Cell Distribution Width 12.7 13.0 Platelet Count 283 # 270 Mean Platelet Volume 10.2 11.0 H Neutrophils % 51.2 61.6 Lymphocytes % 38.0 26.6 Monocytes % 8.2 9.4 Eosinophils % 1.9 1.6 Basophils % 0.5 0.5 Nucleated Red Blood Cells % 0.0 0.0 Neutrophils # 4.7 4.6 Lymphocytes # 3.5 H 2.0 Monocytes # 0.8 0.7 Eosinophils # 0.2 0.1 Basophils # 0.1 0.0 Nucleated Red Blood Cells # 0.0 0.0 Prothrombin Time 12.1 L Prothrombin Time Ratio 0.9 INR International Normalized Ratio 0.90 Sodium Level 134 L 140 Potassium Level 3.7 4.5 Chloride Level 98 107 Carbon Dioxide Level 24 24 Anion Gap 16 14 Blood Urea Nitrogen 10 8 Creatinine 0.80 0.82 Glucose Level 111 90 Calcium Level 9.6 9.2 Total Bilirubin 0.3 0.2 Direct Bilirubin 0.00 0.00 Indirect Bilirubin 0.3 0.2 Aspartate Amino Transf (AST/SGOT) 31 31 Alanine Aminotransferase (ALT/SGPT) 38 34 Alkaline Phosphatase 71 64 Troponin I < 0.012 Total Protein 7.6 7.1 Albumin 4.6 4.0 Globulin 3.00 3.10 Albumin/Globulin Ratio 1.53 1.29 Lipase 71 Urine Color COLORLESS Urine Clarity CLEAR Urine pH 5.0 Urine Specific [place] 1.002 L Urine Ketones NEGATIVE Urine Nitrite NEGATIVE Urine Bilirubin NEGATIVE Urine Urobilinogen NEGATIVE Urine Leukocyte Esterase NEGATIVE Urine Hemoglobin NEGATIVE Urine Glucose NEGATIVE Urine Total Protein NEGATIVE Hemoglobin A1c 5.7 Magnesium Level 2.0 Triglycerides Level 104 Cholesterol Level 137 LDL Cholesterol, Calculated 61 HDL Cholesterol 55 Cholesterol/HDL Ratio 2.4 Thyroid Stimulating Hormone (TSH) 1.970 Medications Medications Current Medications Atorvastatin Calcium (Lipitor) 20 mg DAILY@21 PO ; Start 04/26/17 at 21:00 Cyclobenzaprine HCl (Flexeril) 10 mg TID PO Last administered on 04/26/17 13: 29; Admin Dose 10 MG; Start 04/26/17 at 09:00 Hydrocortisone (Hydrocortisone 2.5% Cr) 1 applic BID TOP Last administered on 04/26/17 08:14; Admin Dose 1 APPLIC; Start 04/26/17 at 09:00 Ranitidine HCl (Zantac) 75 mg BID PO Last administered on 04/26/17 08:14; Admin Dose 75 MG; Start 04/26/17 at 09:00 Venlafaxine HCl (Effexor Xr) 300 mg DAILY PO Last administered on 04/26/17 08: 13; Admin Dose 300 MG; Start 04/26/17 at 09:00 Ondansetron HCl (Zofran Inj) 4 mg Q6H PRN IV NAUSEA AND/OR VOMITING; Start 04/26/17 at 01:00 Acetaminophen (Tylenol Tab) 650 mg Q6H PRN PO PAIN LEVEL 1-3 OR FEVER; Start 04/26/17 at 01:00 Docusate Sodium (Colace) 100 mg Q12H PRN PO CONSTIPATION; Start 04/26/17 at 01: 00 Bisacodyl (Dulcolax Supp) 10 mg DAILY PRN [place] CONSTIPATION; Start 04/26/17 at 01 :00 Hydralazine HCl (Apresoline) 10 mg Q4H PRN IV ELEVATED BLOOD PRESSURE; Start 04/26/17 at 01:00 Miscellaneous Information Patients own medicat... BID@10,16 XX ; Start 04/26/17 at 10:00 Docusate Sodium (Colace) 100 mg BID PO Last administered on 04/26/17 08:03; Admin Dose 100 MG; Start 04/26/17 at 07:30 Polyethylene Glycol (Miralax) 17 gm DAILY PO Last administered on 04/26/17 08: 04; Admin Dose 17 GM; Start 04/26/17 at 07:30 Carvedilol (Coreg) 3.125 mg BID PO ; Start 04/26/17 at 21:00 Tramadol HCl (Ultram) 50 mg Q4H PRN PO pain Last administered on 04/26/17 10: 05; Admin Dose 50 MG; Start 04/26/17 at 10:00 Clonazepam (Klonopin) 1 mg BID PO Last administered on 04/26/17 11:06; Admin Dose 1 MG; Start 04/26/17 at 11:00 Acetaminophen/ Hydrocodone Bitart ([place] (5/325)) 1 tab Q4 PRN PO PAIN LEVEL 4- 6 Last administered on 04/26/17 13:29; Admin Dose 1 TAB; Start 04/26/17 at 13: 30 ALONDRA ROMERO MD Apr 26, 2017 15:00
--- NOTE | 2017-04-26 16:37 | RADRPT ---
Echocardiogram Report Patient Name: RODOLFO LILLY Gender: Female Date: 1945 Study Date: 26-Apr-2017 Box Printer: PARAM Location: [id number] Ref. Physician: SILVERIO VALENCIA Quality: Technically Difficult Study Procedures: Transthoracic echocardiogram with complete 2D, M-Mode, and doppler examination. Indications: Pre-op. 2D/M Mode Doppler Measurement Value Normal Ranges Measurement Value Normal Ranges AoR Diam MM 2.9 cm ESEQUIEL Vmax 2.7 cm2 LA/Ao MM 0.9 ESEQUIEL VTI 2.7 cm2 LA Dimen MM 2.6 cm AV Mean Leandro 0.7 m/sec LVIDd 2D 3.1 3.5 - 5.6 cm AV Mean PG 2.5 mmHg LVIDs 2D 2.1 2.1 - 4.1 cm AV Peak Leandro 1.1 m/sec LVPWd 2D 1.1 0.6 - 1.1 cm AV Peak PG 4.7 mmHg IVSd 2D 1.0 0.6 - 1.1 cm AV VTI 18.9 cm EDV 2D 37.0 cm3 LVOT Peak Leandro 1.0 m/sec ESV 2D 9.4 cm3 LVOT Peak PG 3.7 mmHg EF 2D 60.0 50.0 - 65.0 % LVOT Diam 2.0 cm Findings Left Ventricle: Normal left ventricular systolic function. Normal left ventricular cavity size. Normal left ventricular wall thickness. Ejection fraction is visually estimated at 60 %. Tissue Doppler/Mitral Doppler indices are within normal limits. Right Ventricle: Normal right ventricular size. Normal right ventricular systolic function. Left Atrium: The left atrium is normal in size. Right Atrium: The right atrium is normal in size. Mitral Valve: Normal appearance of the mitral valve. Normal appearance and function of the mitral valve with trace physiologic regurgitation. Aortic Valve: Normal appearance of the aortic valve. No significant aortic stenosis or insufficiency. No aortic regurgitation. Tricuspid Valve: Normal appearance and function of the tricuspid valve with trace physiologic regurgitation. Unable to obtain RVSP due to minimal presence of tricuspid regurgitation. Pulmonic Valve: Pulmonic valve not well visualized. Pericardium: Trivial pericardial effusion. Possible anterior pleural effusion seen. Aorta: Normal aortic root. IVC: Normal size and normal respiratory collapse consistent with normal right atrial pressure. Conclusions 1.Normal left ventricular systolic function. Normal left ventricular cavity size. Normal left ventricular wall thickness. Ejection fraction is visually estimated at 60 %. Tissue Doppler/Mitral Doppler indices are within normal limits. 2.Normal right ventricular size. Normal right ventricular systolic function. 3.Normal appearance of the mitral valve. Normal appearance and function of the mitral valve with trace physiologic regurgitation. 4.Normal appearance of the aortic valve. No significant aortic stenosis or insufficiency. No aortic regurgitation. 5.Normal appearance and function of the tricuspid valve with trace physiologic regurgitation. Unable to obtain RVSP due to minimal presence of tricuspid regurgitation. 6.Trivial pericardial effusion. Possible anterior pleural effusion seen. Electronically Signed By: Wilmer Adhikari 26-Apr-2017 16:36:55 -0700 Patient Name: RODOLFO LILLY Study Date: 26-Apr-2017 [id number]
--- NOTE | 2017-04-26 16:37 | RADRPT ---
Echocardiogram Report Patient Name: RODOLFO LILLY Gender: Female Date: 1945 Study Date: 26-Apr-2017 Resource Specialist Teacher: PARAM Location: 505 Ref. Physician: SILVERIO VALENCIA Quality: Technically Difficult Study Procedures: Transthoracic echocardiogram with complete 2D, M-Mode, and doppler examination. Indications: Pre-op. 2D/M Mode Doppler Measurement Value Normal Ranges Measurement Value Normal Ranges AoR Diam MM 2.9 cm ESEQUIEL Vmax 2.7 cm2 LA/Ao MM 0.9 ESEQUIEL VTI 2.7 cm2 LA Dimen MM 2.6 cm AV Mean Leandro 0.7 m/sec LVIDd 2D 3.1 3.5 - 5.6 cm AV Mean PG 2.5 mmHg LVIDs 2D 2.1 2.1 - 4.1 cm AV Peak Leandro 1.1 m/sec LVPWd 2D 1.1 0.6 - 1.1 cm AV Peak PG 4.7 mmHg IVSd 2D 1.0 0.6 - 1.1 cm AV VTI 18.9 cm EDV 2D 37.0 cm3 LVOT Peak Leandro 1.0 m/sec ESV 2D 9.4 cm3 LVOT Peak PG 3.7 mmHg EF 2D 60.0 50.0 - 65.0 % LVOT Diam 2.0 cm Findings Left Ventricle: Normal left ventricular systolic function. Normal left ventricular cavity size. Normal left ventricular wall thickness. Ejection fraction is visually estimated at 60 %. Tissue Doppler/Mitral Doppler indices are within normal limits. Right Ventricle: Normal right ventricular size. Normal right ventricular systolic function. Left Atrium: The left atrium is normal in size. Right Atrium: The right atrium is normal in size. Mitral Valve: Normal appearance of the mitral valve. Normal appearance and function of the mitral valve with trace physiologic regurgitation. Aortic Valve: Normal appearance of the aortic valve. No significant aortic stenosis or insufficiency. No aortic regurgitation. Tricuspid Valve: Normal appearance and function of the tricuspid valve with trace physiologic regurgitation. Unable to obtain RVSP due to minimal presence of tricuspid regurgitation. Pulmonic Valve: Pulmonic valve not well visualized. Pericardium: Trivial pericardial effusion. Possible anterior pleural effusion seen. Aorta: Normal aortic root. IVC: Normal size and normal respiratory collapse consistent with normal right atrial pressure. Conclusions 1.Normal left ventricular systolic function. Normal left ventricular cavity size. Normal left ventricular wall thickness. Ejection fraction is visually estimated at 60 %. Tissue Doppler/Mitral Doppler indices are within normal limits. 2.Normal right ventricular size. Normal right ventricular systolic function. 3.Normal appearance of the mitral valve. Normal appearance and function of the mitral valve with trace physiologic regurgitation. 4.Normal appearance of the aortic valve. No significant aortic stenosis or insufficiency. No aortic regurgitation. 5.Normal appearance and function of the tricuspid valve with trace physiologic regurgitation. Unable to obtain RVSP due to minimal presence of tricuspid regurgitation. 6.Trivial pericardial effusion. Possible anterior pleural effusion seen. Electronically Signed By: Wilmer Adhikari 26-Apr-2017 16:36:55 -0700 Patient Name: RODOLFO LILLY Study Date: 26-Apr-2017 [id number]
[2017-04-26] MEDS ORDERED: ATORVASTATIN 20 MG TAB PO SCH (21:00)
--- NOTE | 2017-04-27 19:19 | DS ---
Date/Time of Note Date/Time of Note DATE: 04/27/17 TIME: 19:18 Discharge Summary Admission/Discharge Info Admit Date/Time Apr 25, 2017 at 23:51 Discharge Date/Time Apr 26, 2017 at 16:53 Discharge Diagnosis 4.5 cm AAA Patient Condition: Guarded Consults vascular surgery (pt left prior to eval) Procedures CT AP with runoff: 4.5 cm AAA Hx of Present Illness Chief complaint: Abdominal pain distention This is a 72-year-old woman complaining of abdominal pain 1 year that is constant and daily daily. She states the pain has gotten worse than previous episodes recently, and states her abdominal discomfort is hypogastric and feels like a "mass". Patient states she has had clear nonbloody nonbilious emesis no diarrhea, she feels constipated, no blood per rectum or melena. Patient denies chest pain or shortness of breath. No fevers or chills, no headache or blurry vision. She reports that she has had a chronic history of constipation. She states that she has a poor diet and she is not able to afford the proper food. She does state that she drinks water every day. Her last BM was approximately 3 days ago. And she usually goes every 3-4 days. Last time she was told her abdominal aortic aneurysm was 3.5 cm which was a few months ago. Allergies: NKDA Medications: See AUG Hospital Course 72 yo F admitted for chronic abd pain 2/2 constipation incidentally found to have 4.5 cm aaa. Constipation resolved with bowel regimen. Re AAA, plan was for vascular surgery consult however pt left AMA ~5pm 11.4. I was not notified of pt 's request to leave until I checked her chart from home that evening thus I was not able to speak with the patient prior to her attempt to leave regarding the risk of rupture of her AAA, nor was I provided the opportunity to give her an rx for the beta carlyn on which I started her in the hospital intended to decrease her heart rate and risk of AAA rupture. Home Meds Active Scripts Prednisone (Prednisone) 20 Mg Tab, 40 MG PO DAILY for 4 Days, TAB Prov:MAMTA CHACKO MD 04/25/17 Albuterol Sulfate* (Proair HFA*) 8.5 Gm Hfa.aer.ad, 2 PUFF INH Q6H Y for WHEEZING AND SOB, #1 INHALER Prov:MAMTA CHACKO MD 04/25/17 Ibuprofen* (Ibuprofen*) 600 Mg Tablet, 600 MG PO Q8 for PAIN AND/OR INFLAMMATION , #30 TAB Prov:MAMTA CHACKO MD 04/25/17 Ondansetron (Zofran Odt) 4 Mg Tab.rapdis, 4 MG PO Q6 for NAUSEA, #10 Prov:JERAMY MAN DO 01/10/17 Hydrocortisone* Topical (Hydrocortisone* Topical) 2.5%-28.3 Gm Cream..g., 1 APPLIC TOP BID, #1 TUB Prov:PEACE HERNANDEZ MD 11/12/16 Hydrocortisone Acetate* (Anusol-HC*) 25 Mg/Supp.rect Supp.rect, 1 SUPP IA HS, # 12 SUPP.RECT Prov:PEACE HERNANDEZ MD 01/02/16 Cyclobenzaprine Hcl* (Cyclobenzaprine Hcl*) 10 Mg Tablet, 10 MG PO TID, #15 TAB Prov:VIRIDIANA MILLS NP 03/28/15 Tramadol HCl (Tramadol HCl) 50 Mg Tab, 50 MG PO Q6, #8 TAB Prov:LANG STEVENS MD 03/25/15 Reported Medications Albuterol Sulfate* (Ventolin HFA*) 18 Gm Hfa.aer.ad, 2 PUFF INHALATION Q4H, #1 INHALER 04/26/17 Clonazepam* (Clonazepam*) 2 Mg Tablet, 2 MG PO QHS, TAB 11/21/14 Ranitidine Hcl* (Zantac*) 75 Mg Tablet, 75 MG PO BID, TAB 11/21/14 Amlodipine Besylate* (Norvasc*) 5 Mg Tablet, 5 MG PO DAILY, TAB 11/21/14 Atorvastatin Calcium* (Atorvastatin Calcium*) 20 Mg Tablet, 20 MG PO DAILY 11/04/12 Venlafaxine Hcl* (Effexor XR*) 150 Mg Cap.sr.24h, 300 MG PO DAILY 11/04/12 Discontinued Reported Medications Prochlorperazine* (Prochlorperazine*) 10 Mg Tablet, 10 MG PO Q4 Y for NAUSEA, TAB 11/21/14 Famotidine* (Pepcid*) 20 Mg Tablet, 20 MG PO BID 11/04/12 Discontinued Scripts Albuterol Sulfate* (Proair HFA*) 8.5 Gm Hfa.aer.ad, 2 PUFF INH Q4, #1 INHALER Prov:KALA SAUNDERSBen DO 04/14/17 Prednisone* (Prednisone*) 20 Mg Tab, 60 MG PO DAILY for 5 Days, TAB Prov:KALA SAUNDERSBen DO 04/14/17 Hydrocodone Bit-Acetaminophen* (Lortab* Liq) 7.5 Mg-325 Mg/15 Ml Solution, 15 ML PO Q6H Y for cou, #120 ML Prov:KALA SAUNDERSBen DO 04/14/17 Azithromycin* (Zithromax*) 250 Mg Tablet, 250 MG PO .REY DIRECTED, #6 TAB TAKE 500 MG (2 TABS) THE FIRST DAY THEN 250 MG (1 TAB) DAYS 2-5 Prov:CHIPBAHMANTANJA Graham DO 04/14/17 Naproxen* (Naproxen*) 375 Mg Tablet, 375 MG PO BID Y for PAIN, #8 TAB Prov:JERAMY MAN DO 01/10/17 Polyethylene Glycol* (Miralax*) 17 Gm Powd.pack, 17 GM PO DAILY, #7 Prov:MAGDAJERAMYBONNY JAMES 01/10/17 Magnesium Citrate* (Magnesium Citrate*) 296 Ml Solution, 296 ML PO ONCE, #1 BOTTLE Prov:MAGDAJERAMY 01/10/17 Sulfamethoxazole/Trimethoprim* (Bactrim Ds* Tablet) 1 Each Tablet, 1 TAB PO BID , #7 TAB Prov:PEACE HERNANDEZ MD 11/12/16 Cephalexin* (Keflex*) 500 Mg Capsule, 500 MG PO QID for 7 Days, CAP Prov:PEACE HERNANDEZ MD 11/12/16 Clonazepam* (Clonazepam*) 2 Mg Tablet, 2 MG PO BID, #10 TAB Prov:ANDREAS RANGEL 07/28/16 Tramadol HCl (Tramadol HCl) 50 Mg Tab, 50 MG PO Q4 Y for PAIN, #20 TAB Prov:LELAND STOREY PA-C 04/21/15 Naproxen* (Naprosyn*) 500 Mg Tablet, 500 MG PO BID Y for PAIN AND/OR INFLAMMATION, #30 TAB Prov:VIRIDIANA MILLS NP 03/28/15 Follow-up Plan pt left AMA Primary Care Provider Mark Carreon Time spent on discharge: < 30 minutes Copies To: CC: PCP ALONDRA ROMERO MD Apr 27, 2017 19:19 BOTTLE Prov:MAGDAJERAMYBONNY JAMES 01/10/17 Sulfamethoxazole/Trimethoprim* (Bactrim Ds* Tablet) 1 Each Tablet, 1 TAB PO BID , #7 TAB Prov:PEACE HERNANDEZ MD 11/12/16 Cephalexin* (Keflex*) 500 Mg Capsule, 500 MG PO QID for 7 Days, CAP Prov:PEACE HERNANDEZ MD 11/12/16 Clonazepam* (Clonazepam*) 2 Mg Tablet, 2 MG PO BID, #10 TAB Prov:ANDREAS RANGEL 07/28/16 Tramadol HCl (Tramadol HCl) 50 Mg Tab, 50 MG PO Q4 Y for PAIN, #20 TAB Prov:LELAND STOREY PA-C 04/21/15 Naproxen* (Naprosyn*) 500 Mg Tablet, 500 MG PO BID Y for PAIN AND/OR INFLAMMATION, #30 TAB Prov:VIRIDIANA MILLS. TECHNICAL INSTRUCTOR COURSE DEVELOPER 03/28/15 Primary Care Provider ALONDRA Haq MD Apr 27, 2017 19:19
== END 2017-04-26 16:53 | disposition left against medical advice (07) | DRG 300 ==
LOC: E/R 17:36 → TEL 23:51
PROVIDERS: ADMIT Family Medicine; ATTEND Family Medicine
DX: I71.4 Abdominal aortic aneurysm, without rupture (principal); J44.1 Chronic obstructive pulmonary disease with (acute) exacerbation; E87.1 Hypo-osmolality and hyponatremia; E86.0 Dehydration; K59.00 Constipation, unspecified; F41.9 Anxiety disorder, unspecified; F17.210 Nicotine dependence, cigarettes, uncomplicated; G89.29 Other chronic pain
CPT/HCPCS: 36415; 74176; 75635; 80053; 80061; 81003; 83036; 83690; 83735; 84443; 84484; 85014; 85018; 85025; 85610; 93005; 93306; 94644; 96374; 96375; J2270; J2405; J7030; J7512; Q9967

== ENCOUNTER 2017-10-30 06:41 | Emergency (ER) | END 2017-10-30 10:39 | disposition home or self-care (01) ==

== ENCOUNTER 2018-02-24 07:04 | Inpatient (IN) | END 2018-02-25 16:50 | disposition left against medical advice (07) | DRG 872 ==

== ENCOUNTER 2018-09-09 12:11 | Emergency (ER) | payer MEDICARE, OTHER ==
[~2018-09-09] VITALS: Ht 157.5 cm; Wt 60.0 kg
[~2018-09-09 12:11] MED LIST changes: +ALBU18HF INHALATION; -ALBU8.5H3 INH; +AMLO-147 PO; -AMLO5TAB4 PO; +ASPI-826 PO; -AZIT250T94 PO; -CEPH-443 PO; +CLON1TAB13 PO; -CLON2TAB3 PO; -CYCL-319 PO; +DOCU-221 PO; -FAMO-96 PO; -HC30CR25 TOP; -HYDR15SO8 PO; -HYDR25SU24 PR; -MAGN296S40 PO; -NAPR-260 PO; -NAPR-685 PO; +NAPR220C2 PO; +OMEP40CA6 PO; -ONDA4TAB11 PO; -PRED20TA PO; -PROC10TA10 PO; +RANI300T PO; -RANI75TA13 PO; -SULF1TAB31 PO
[2018-09-09 12:34] VITALS: Ht 157.5 cm; Wt 60.0 kg
[2018-09-09] MEDS ORDERED: HYDR-4011 PO (13:18)
[2018-09-09] MEDS ORDERED: ONDA4TAB8 PO (13:18)
--- NOTE | 2018-09-09 13:23 | ERD ---
ER Documentation Chief Complaint Chief Complaint BIB RA FOR EVAL OF LEFT SHOULDER PAIN. HPI 73-year-old female brought to the emergency department by paramedics for evaluation of left shoulder pain. Patient chronically uses oxygen as well as has a number of other comorbid conditions. Patient states she was walking today where she accidentally got caught on her oxygen hose. She had a mechanical trip and fall. Prior to that, she reported no shortness of breath, chest pain, palpitations, dizziness or any other medical complaints. After falling, she reports left shoulder pain. She denies any other traumatic injury. I have reviewed the mortician helper pre-hospital care. Pre-hospital vital signs were reviewed. Pre-hospital diagnostic tests were reviewed. ROS All systems reviewed and are negative except as per history of present illness. Medications Home Meds Active Scripts Ondansetron Hcl* (Zofran*) 4 Mg Tablet, 4 MG PO Q8H PRN for NAUSEA AND/OR VOMITING, #30 TAB Prov:ANDREAS RANGEL 09/09/18 Hydrocodone/Acetaminophen ([place] 5-325 Tablet) 1 Each Tablet, 1 EACH PO TID for pain, #10 TAB Prov:ANDREAS RANGEL 09/09/18 Polyethylene Glycol* (Miralax*) 17 Gm Powd.pack, 17 GM PO DAILY, #7 Prov:KALA SAUNDERS DO 10/30/17 Tramadol HCl (Tramadol HCl) 50 Mg Tab, 50 MG PO Q6, #8 TAB Prov:LANG STEVENS MD 03/25/15 Reported Medications Aspirin/Acetaminophen/Caffeine (Excedrin Extra Strength Caplet) 1 Each Tablet, 2 EACH PO Q2H, TAB 02/24/18 Docusate Sodium* (Doc-Q-Lace*) 100 Mg Capsule, 200 MG PO DAILY, CAP 02/24/18 Naproxen* (Aleve*) 220 Mg Capsule, 220 MG PO BID, #60 CAP 02/24/18 Omeprazole* (Omeprazole*) 40 Mg Capsule.dr, 40 MG PO DAILY, #30 CAP 02/24/18 Ranitidine Hcl* (Ranitidine Hcl*) 300 Mg Tablet, 300 MG PO HS, #30 TAB 02/24/18 Clonazepam* (Clonazepam*) 1 Mg Tablet, 1 MG PO BID PRN for ANXIETY, TAB take 1 tablet QAM by mouth and QPM 02/24/18 Amlodipine Besylate* (Amlodipine Besylate*) 10 Mg Tablet, 10 MG PO DAILY, #30 TAB 02/24/18 Albuterol Sulfate* (Ventolin HFA*) 18 Gm Hfa.aer.ad, 2 PUFF INHALATION Q4H, #1 INHALER 04/26/17 Atorvastatin Calcium* (Atorvastatin Calcium*) 20 Mg Tablet, 20 MG PO DAILY 11/04/12 Venlafaxine Hcl* (Effexor XR*) 150 Mg Cap.sr.24h, 300 MG PO DAILY 11/04/12 Allergies Allergies: Coded Allergies: No Known Allergy (Unverified , 02/24/18) PMhx/Soc History of Surgery: Yes (bowel resection) Anesthesia Reaction: No Hx Neurological Disorder: Yes (seizures) Hx Respiratory Disorders: Yes (COPD) Hx Cardiac Disorders: Yes (HTN) Hx Psychiatric Problems: Yes (anxiety) Hx Miscellaneous Medical Probl: No Hx Alcohol Use: No Hx Substance Use: No Hx Tobacco Use: Yes (QUIT ONE YEAR AGO) Smoking Status: Never smoker FmHx Noncontributory with supportive daughter at the bedside. Physical Exam Vitals Vital Signs Date Temp Pulse Resp B/P (MAP) Pulse Ox O2 O2 Flow FiO2 Time Delivery Rate 09/09/18 98.1 72 17 148/102 99 12:34 (117) Physical Exam General: Well developed, well nourished in no acute distress HEENT: Scalp atraumatic with no laceration or evidence of skull fracture; no signs of basilar skull fracture. Face symmetric, stable and atraumatic Neck: Full range of motion without discomfort or neurologic symptoms, no midline cervical spine tenderness, step-off, or evidence of significant trauma CV: Regular rate, rhythm, no murmurs appreciated Lungs: Clear to auscultation bilaterally with no chest wall trauma appreciated, chest wall stable with no crepitus Abdomen: Soft, atraumatic and non-tender in all 4 quadrants Extremities: Left shoulder is diffusely tender with no obvious deformity. Clavicle is intact. All other extremities appear to be normal with full range of motion. Back: No thoracic or lumbar midline tenderness, no step-off or evidence of significant trauma Neurologic: Awake, alert and oriented, pupils equal, round and reactive to light, face symmetric, tongue midline, moving all extremities with equal and normal strength, sensory exam grossly non-focal Procedures/MDM Patient was taken to a room, seen and evaluated. Comfort measures were initiated. Diagnostic tests were ordered and reviewed. 3 LEAD RHYTHM STRIP: [Normal sinus rhythm without ectopy] RADIOLOGY: [reviewed with the radiologist] REEVALUATION: 1320: Diagnostic tests were appreciated. Procedure: Immobilization/splinting Patient was placed into a shoulder immobilizer splint. Patient was neurovascularly intact after immobilization. MEDICAL DECISION MAKIN-year-old female presents after mechanical, non- syncopal fall with no medical complaints prior to the fall. From a trauma standpoint, she has evidence of a nondisplaced fracture of her shoulder. She has no other evidence of intra-cranial, intra-abdominal, neurologic or orthopedic trauma. From a medical standpoint, although she has medical comorbid conditions as well as polypharmacy, she appears to be appropriate for outpatient management with all of these medical problems apparently stable. From a social standpoint, she is functional, has supportive family at the bedside and seems appropriate for outpatient supportive care with a safe discharge. Departure Diagnosis: Primary Impression: Shoulder fracture Condition: Stable Patient Instructions: Fracture, Shoulder Referrals: INGRID MENON MD Additional Instructions: Remain in the splint until you are seen by the data processing specialist. ANDREAS RANGEL Sep 09, 2018 13:23
[2018-09-09] MEDS ORDERED: morphine 2 MG INJ IM STA (14:16)
[2018-09-09 14:41] VITALS: BP 145/78; PULSE 88; RESP 18
== END 2018-09-09 15:08 | disposition home or self-care (01) ==
LOC: E/R 12:11
DX: S42.302A Unspecified fracture of shaft of humerus, left arm, initial encounter for closed fracture (principal); J44.9 Chronic obstructive pulmonary disease, unspecified; I10 Essential (primary) hypertension; W01.0XXA Fall on same level from slipping, tripping and stumbling without subsequent striking against object, initial encounter; Y92.9 Unspecified place or not applicable; Z79.82 Long term (current) use of aspirin
CPT/HCPCS: 73030; 96372; 99284; J2270

== ENCOUNTER 2018-09-11 02:44 | Emergency (ER) | payer MEDICARE, OTHER ==
[~2018-09-11] VITALS: Ht 160 cm; Wt 59.1 kg
[~2018-09-11 02:44] MED LIST changes: +HYDR-4011 PO; +ONDA4TAB8 PO
[2018-09-11 02:49] VITALS: Ht 160 cm; Wt 59.1 kg
[2018-09-11] MEDS ORDERED: ONDANSETRON 4 MG INJ IV STA (02:53)
[2018-09-11] MEDS ORDERED: morphine 4 MG/ML VIAL IV STA (02:53)
[2018-09-11] MEDS ORDERED: ONDA4TAB14 PO (04:43)
[2018-09-11] MEDS ORDERED: HYDR-4011 PO (04:43)
--- NOTE | 2018-09-11 04:50 | ERD ---
ER Documentation Chief Complaint Chief Complaint BIB RA39 for SOB and shoulder pain HPI 73-year-old female who was recently seen in the emergency room and diagnosed with a closed left humerus fracture status post mechanical fall. Patient states that she lives in a boarding care facility and has a room to herself. She is able to transfer in and out of bed and go to the bathroom and take care of herself. However she is describing worsening pain to the left upper extremity. The patient also has swelling of her hand. She is requesting pain medication. She also reported some shortness of breath but has baseline oxygen requirement and COPD. She states that her shortness of breath is at baseline and unchanged. No new cough or productive sputum. Her pain is 8 out of 10 and throbbing to the left upper extremity. She is additionally having some mild left knee pain. ROS All systems reviewed and are negative except as per history of present illness. Medications Home Meds Active Scripts Ondansetron (Ondansetron Odt) 4 Mg Tab.rapdis, 4 MG PO Q6H PRN for NAUSEA AND/OR VOMITING, #10 TAB Prov:CLARA WATERS MD 09/11/18 Hydrocodone/Acetaminophen ([place] 5-325 Tablet) 1 Each Tablet, 1 TAB PO Q6H PRN for PAIN, #7 TAB Prov:CLARA WATERS MD 09/11/18 Ondansetron Hcl* (Zofran*) 4 Mg Tablet, 4 MG PO Q8H PRN for NAUSEA AND/OR VOMITING, #30 TAB Prov:ANDREAS RANGEL 09/09/18 Hydrocodone/Acetaminophen ([place] 5-325 Tablet) 1 Each Tablet, 1 EACH PO TID for pain, #10 TAB Prov:ANDREAS RANGEL 09/09/18 Polyethylene Glycol* (Miralax*) 17 Gm Powd.pack, 17 GM PO DAILY, #7 Prov:KALA SAUNDERS DO 10/30/17 Tramadol HCl (Tramadol HCl) 50 Mg Tab, 50 MG PO Q6, #8 TAB Prov:LANG STEVENS MD 03/25/15 Reported Medications Aspirin/Acetaminophen/Caffeine (Excedrin Extra Strength Caplet) 1 Each Tablet, 2 EACH PO Q2H, TAB 02/24/18 Docusate Sodium* (Doc-Q-Lace*) 100 Mg Capsule, 200 MG PO DAILY, CAP 02/24/18 Naproxen* (Aleve*) 220 Mg Capsule, 220 MG PO BID, #60 CAP 02/24/18 Omeprazole* (Omeprazole*) 40 Mg Capsule.dr, 40 MG PO DAILY, #30 CAP 02/24/18 Ranitidine Hcl* (Ranitidine Hcl*) 300 Mg Tablet, 300 MG PO HS, #30 TAB 02/24/18 Clonazepam* (Clonazepam*) 1 Mg Tablet, 1 MG PO BID PRN for ANXIETY, TAB take 1 tablet QAM by mouth and QPM 02/24/18 Albuterol Sulfate* (Ventolin HFA*) 18 Gm Hfa.aer.ad, 2 PUFF INHALATION Q4H, #1 INHALER 04/26/17 Atorvastatin Calcium* (Atorvastatin Calcium*) 20 Mg Tablet, 20 MG PO DAILY 11/04/12 Venlafaxine Hcl* (Effexor XR*) 150 Mg Cap.sr.24h, 300 MG PO DAILY 11/04/12 Discontinued Reported Medications Amlodipine Besylate* (Amlodipine Besylate*) 10 Mg Tablet, 10 MG PO DAILY, #30 TAB 02/24/18 Allergies Allergies: Coded Allergies: No Known Allergy (Unverified , 09/11/18) PMhx/Soc History of Surgery: Yes (bowel resection) Anesthesia Reaction: No Hx Neurological Disorder: Yes (seizures) Hx Respiratory Disorders: Yes (COPD) Hx Cardiac Disorders: Yes (HTN) Hx Psychiatric Problems: Yes (anxiety) Hx Miscellaneous Medical Probl: No Hx Alcohol Use: No Hx Substance Use: No Hx Tobacco Use: Yes Smoking Status: Former smoker FmHx Family History: No diabetes Physical Exam Vitals Vital Signs Date Temp Pulse Resp B/P (MAP) Pulse Ox O2 O2 Flow FiO2 Time Delivery Rate 09/11/18 98.7 94 20 153/98 98 Nasal 03:13 (116) Cannula 09/11/18 Nasal 2.0 03:13 Cannula 09/11/18 98.7 94 20 153/98 98 02:49 (116) Physical Exam General: Well developed, well nourished, no acute distress Head: Normocephalic, atraumatic. Eyes: Pupils equally reactive, EOM intact ENT: Moist mucous membranes Neck: Supple, no lymphadenopathy Respiratory: Lungs clear bilaterally, no distress Cardiovascular: RRR, no murmurs, rubs, or gallops Abdominal: Soft, non-tender, non-distended, no peritoneal signs : Deferred MSK: Bruising to the left upper extremity near the mid humerus. The patient has swelling of the left hand, she has rings on her finger that need to be removed. The patient has no bony abnormalities to the elbow, forearm or wrist or hand. Patient's left lower externally without bony abnormalities with mild tenderness to the lateral aspect of the proximal fibula. Neurovascular intact. Neurologic: Alert and oriented, moving all extremities, normal speech, no focal weakness, no cerebellar signs Skin: No rash Psych: Normal mood Results 24 hrs Current Medications Medications Dose Sig/Richard Start Time Status Last (Trade) Ordered Route PRN Stop Time Admin Dose Reason Admin Morphine 4 mg ONCE STAT 09/11/18 DC 09/11/18 Sulfate IV 02:53 03:24 (morphine) 09/11/18 02:56 Ondansetron 4 mg ONCE STAT 09/11/18 DC 09/11/18 HCl (Zofran IV 02:53 03:24 Inj) 09/11/18 02:56 Procedures/MDM EKG, MONITORS, & DIAGNOSTIC IMAGING: X-ray left hand: I reviewed and interpreted multiple views of the x-ray Bones: No evidence of acute fracture dislocation or subluxation Soft tissue: No evidence of foreign body X-ray left knee: I reviewed and interpreted multiple views of the x-ray Bones: No evidence of acute fracture dislocation or subluxation Soft tissue: No evidence of foreign body x-ray left tib-fib: I reviewed and interpreted multiple views of the x-ray Bones: No evidence of acute fracture dislocation or subluxation Soft tissue: No evidence of foreign body MEDICAL DECISION MAKING: Patient shortness of breath is consistent with her baseline COPD and unchanged. I do not believe this is consistent with COPD exacerbation or cardiac etiology The patient seems to have an exacerbation of pain related to her recent fall and trauma. No new falls or injuries. The patient is requesting x-ray imaging of her hand and left lower extremity. Low concern for fracture. The patient does have multiple rings on her left hand which will be removed given edema noted to the hand. ER COURSE: * The patient was given pain control medication with improved symptoms. The patient's rings were removed. Her x-ray imaging shows no evidence of new fractures. * The patient states that she is having some difficulty walking secondary to the pain. I had a prolonged conversation discussing goals of care and activities of daily living with her. The patient states that she is able to care for activities of daily living at her current living situation. She is adamantly refusing any inpatient hospitalization for physical therapy or rehabilitation placement. The patient understands the risks involved and has capacity. CONSULTATION: None DISPOSITION PLAN: The patient does not have an identifiable emergent medical condition that warrants inpatient hospitalization at this time. The patient is deemed safe for discharge with outpatient follow-up. We discussed follow up with the patient's primary care doctor within 24 to 48 hours as needed. We also discussed return to the emergency room for worsening symptoms or worsening condition. Outpatient referral: Orthopedic surgery Discharge Medications: [place] a total of 7 tablets NARCOTIC MEDICATION: The patient has been prescribed a narcotic medication during this encounter. The patient has been warned about the use of narcotics. The patient should not drive or operate heavy machinery while taking this medication. The patient was also warned about the addictive properties of narcotic medications. Narcan prescription was NOT provided given the following criteria: 1. No more than 5 tablets of [place] 10 mg or 10 tablets of [place] 5 mg were prescribed. 2. Concomitant opiate and benzodiazepine prescriptions were not provided. 3. There is no obvious evidence of prior history of opiate abuse or overdose. Departure Diagnosis: Primary Impression: Closed fracture of head of left humerus Encounter type: subsequent encounter Fracture healing: with routine healing Qualified Codes: S42.292D - Other displaced fracture of upper end of left humerus, subsequent encounter for fracture with routine healing Condition: Stable Patient Instructions: Fracture, Shoulder Referrals: [facility] YOU HAVE RECEIVED A MEDICAL SCREENING EXAM AND THE RESULTS INDICATE THAT YOU DO NOT HAVE A CONDITION THAT REQUIRES URGENT TREATMENT IN THE EMERGENCY DEPARTMENT. FURTHER EVALUATION AND TREATMENT OF YOUR CONDITION CAN WAIT UNTIL YOU ARE SEEN IN YOUR DOCTORS OFFICE WITHIN THE NEXT 1-2 DAYS. IT IS YOUR RESPONSIBILITY TO MAKE AN APPOINTMENT FOR FOLOW-UP CARE. IF YOU HAVE A PRIMARY DOCTOR --you should call your primary doctor and schedule an appointment IF YOU DO NOT HAVE A PRIMARY DOCTOR YOU CAN CALL OUR PHYSICIAN REFERRAL HOTLINE AT IF YOU CAN NOT AFFORD TO SEE A PHYSICIAN YOU CAN CHOSE FROM THE FOLLOWING [facility] CLINICS [facility] [address] [facility] [address] [facility] [address] [facility]. [facility] [address] [facility] [address] [facility]. [facility] [address] [facility]. [facility] YOU HAVE RECEIVED A MEDICAL SCREENING EXAM AND THE RESULTS INDICATE THAT YOU DO NOT HAVE A CONDITION THAT REQUIRES URGENT TREATMENT IN THE EMERGENCY DEPARTMENT. FURTHER EVALUATION AND TREATMENT OF YOUR CONDITION CAN WAIT UNTIL YOU ARE SEEN IN YOUR DOCTORS OFFICE WITHIN THE NEXT 1-2 DAYS. IT IS YOUR RESPONSIBILITY TO MAKE AN APPOINTMENT FOR FOLOW-UP CARE. IF YOU HAVE A PRIMARY DOCTOR --you should call your primary doctor and schedule and appointment IF YOU DO NOT HAVE A PRIMARY DOCTOR YOU CAN CALL OUR PHYSICIAN REFERRAL HOTLINE AT . IF YOU CAN NOT AFFORD TO SEE A PHYSICIAN YOU CAN CHOSE FROM THE FOLLOWING [facility] INSTITUTIONS: [facility] [address] [place] [address] [facility] [address] [place] [address] [facility] [address] [place] [address] [facility] Care 7 a.m.- 11 p.m. Every Day of the Week NO APPOINTMENT OR AUTHORIZATION NEEDED SO [facility] Hours: Mon-Fri 9:00 AM - 5:00 PM Additional Instructions: Call your primary care doctor TOMORROW for an appointment during the next 1 WEEK.Tell the office secretary that you were referred from this facility.See the doctor sooner or return here if your condition worsens before your appointment time. CLARA WATERS MD Sep 11, 2018 04:50
[2018-09-11] MEDS ORDERED: HYDROCODONE/APAP (10/325) TAB PO ONE (05:30)
[2018-09-11 05:39] VITALS: BP 125/90; PULSE 100; RESP 20
[2018-09-11] MEDS ORDERED: IBUP-1542 PO (05:46)
== END 2018-09-11 07:38 | disposition home or self-care (01) ==
LOC: E/R 02:44
DX: S42.292D Other displaced fracture of upper end of left humerus, subsequent encounter for fracture with routine healing (principal); I10 Essential (primary) hypertension; J44.9 Chronic obstructive pulmonary disease, unspecified; W18.39XD Other fall on same level, subsequent encounter; Y92.9 Unspecified place or not applicable; Z79.82 Long term (current) use of aspirin; Z87.891 Personal history of nicotine dependence
CPT/HCPCS: 73130; 73562; 73590; 96374; 96375; 99284; J2270; J2405

== ENCOUNTER 2018-09-17 04:03 | Inpatient (IN) | payer MEDICARE, OTHER ==
[~2018-09-17] VITALS: Ht 160 cm; Wt 51.7 kg
[~2018-09-17 04:03] MED LIST changes: -AMLO-147 PO; +IBUP-1542 PO; +ONDA4TAB14 PO
--- NOTE | 2018-09-17 05:42 | ERD ---
ER Documentation Chief Complaint Chief Complaint pain left shoulder, hx of shoulder fx HPI This is a 73-year-old female with a past medical history of hypertension, hyperlipidemia, COPD, seizure disorder, anxiety who is presenting for the third time with significant left shoulder pain related to a fracture sustained 1-2 weeks ago. The patient reportedly had a mechanical fall landing on her left side. She was evaluated a few weeks ago and ultimately diagnosed with a closed left humerus fracture. The patient came back to the emergency department a few days later for pain control and she was given a prescription for opiates. However, she reportedly was not able to fill this prescription and has been in severe pain for the last week. The patient was reportedly offered admission during her second emergency visit to be evaluated for rehabilitation, but the patient refused at that time. The patient is now willing to be admitted if necessary. She endorses continued bruising to the left upper arm. The swelling has improved. The patient also endorses left knee pain that has been progressively sore. The patient did not have a fracture dislocation to the knee. The patient had been able to perform activities of daily living, but now she reports that this is become very limited. She has trouble getting out of bed and is only able to get to her bedside commode to use the bathroom. The patient does endorse chronic shortness of breath with a baseline O2 requirement that is unchanged. The patient denies feeling sick recently. The patient denies fever or chills. The patient has had no headache or vision lagun[place] es. The patient does not endorse neck or back pain. The patient denies lightheadedness or dizziness. The patient has had no chest pain. The patient denies nausea or vomiting. The patient denies abdominal pain. The patient denies changes to bowel movements or urination. The patient has had no focal deficits. The patient has had no weakness or numbness or tingling to the face or extremities. ROS All systems reviewed and are negative except as per history of present illness. Medications Home Meds Active Scripts Ibuprofen* (Motrin*) 600 Mg Tab, 600 MG PO Q6H PRN for PAIN AND OR ELEVATED TEMP, #14 TAB Take with food Prov:CLARA WATERS MD 09/11/18 Ondansetron (Ondansetron Odt) 4 Mg Tab.rapdis, 4 MG PO Q6H PRN for NAUSEA AND/OR VOMITING, #10 TAB Prov:CLARA WATERS MD 09/11/18 Hydrocodone/Acetaminophen ([place] 5-325 Tablet) 1 Each Tablet, 1 TAB PO Q6H PRN for PAIN, #7 TAB Prov:CLARA WATERS MD 09/11/18 Ondansetron Hcl* (Zofran*) 4 Mg Tablet, 4 MG PO Q8H PRN for NAUSEA AND/OR VOMITING, #30 TAB Prov:ANDREAS RANGEL 09/09/18 Hydrocodone/Acetaminophen ([place] 5-325 Tablet) 1 Each Tablet, 1 EACH PO TID for pain, #10 TAB Prov:ANDREAS RANGEL 09/09/18 Polyethylene Glycol* (Miralax*) 17 Gm Powd.pack, 17 GM PO DAILY, #7 Prov:KALA SAUNDERS DO 10/30/17 Tramadol HCl (Tramadol HCl) 50 Mg Tab, 50 MG PO Q6, #8 TAB Prov:LANG STEVENS MD 03/25/15 Reported Medications Aspirin/Acetaminophen/Caffeine (Excedrin Extra Strength Caplet) 1 Each Tablet, 2 EACH PO Q2H, TAB 02/24/18 Docusate Sodium* (Doc-Q-Lace*) 100 Mg Capsule, 200 MG PO DAILY, CAP 02/24/18 Naproxen* (Aleve*) 220 Mg Capsule, 220 MG PO BID, #60 CAP 02/24/18 Omeprazole* (Omeprazole*) 40 Mg Capsule.dr, 40 MG PO DAILY, #30 CAP 02/24/18 Ranitidine Hcl* (Ranitidine Hcl*) 300 Mg Tablet, 300 MG PO HS, #30 TAB 02/24/18 Clonazepam* (Clonazepam*) 1 Mg Tablet, 1 MG PO BID PRN for ANXIETY, TAB take 1 tablet QAM by mouth and QPM 02/24/18 Albuterol Sulfate* (Ventolin HFA*) 18 Gm Hfa.aer.ad, 2 PUFF INHALATION Q4H, #1 INHALER 04/26/17 Atorvastatin Calcium* (Atorvastatin Calcium*) 20 Mg Tablet, 20 MG PO DAILY 11/04/12 Venlafaxine Hcl* (Effexor XR*) 150 Mg Cap.sr.24h, 300 MG PO DAILY 11/04/12 Discontinued Reported Medications Amlodipine Besylate* (Amlodipine Besylate*) 10 Mg Tablet, 10 MG PO DAILY, #30 TAB 02/24/18 Allergies Allergies: Coded Allergies: No Known Allergy (Unverified , 09/11/18) PMhx/Soc History of Surgery: Yes (bowel resection) Anesthesia Reaction: No Hx Neurological Disorder: Yes (seizures) Hx Respiratory Disorders: Yes (COPD) Hx Cardiac Disorders: Yes (HTN) Hx Psychiatric Problems: Yes (anxiety) Hx Miscellaneous Medical Probl: No Hx Alcohol Use: No Hx Substance Use: No Hx Tobacco Use: Yes Smoking Status: Former smoker Physical Exam Vitals Vital Signs Date Temp Pulse Resp B/P (MAP) Pulse Ox O2 O2 Flow FiO2 Time Delivery Rate 09/17/18 98.2 110 18 177/100 97 04:21 (125) Physical Exam Const: No apparent distress, well-developed, well-nourished Head: Normocephalic, Atraumatic Eyes: Normal Conjunctiva. Extraocular movements intact. Pupils equal, round and reactive to light ENT: Normal External Ears, Nose and Mouth. Neck: Full range of motion. No meningismus. Resp: Clear to auscultation bilaterally, No wheezes, rales or rhonchi Cardio: Regular rhythm. Mild tachycardia. No murmurs, rubs or gallops Abd: Soft, non tender, non distended. Normal bowel sounds Skin: No petechiae or rashes Back: No midline tenderness. No CVA tenderness Ext: No cyanosis, or edema. Limited range of motion to the left shoulder secondary to pain with bruising to the left upper arm. No deformity to the left knee. Neur: Awake and alert, oriented 4. Cranial nerves intact. No facial droop. Normal strength, sensation and coordination. Psych: Normal Mood and Affect Result Diagram: 09/17/18 0558 Results 24 hrs Laboratory Tests Test 09/17/18 05:58 White Blood Count 6.6 10^3/ul Red Blood Count 3.72 10^6/ul Hemoglobin 12.3 g/dl Hematocrit 38.6 % Mean Corpuscular Volume 103.8 fl Mean Corpuscular Hemoglobin 33.1 pg Mean Corpuscular Hemoglobin Concent 31.9 g/dl Red Cell Distribution Width 11.9 % Platelet Count 351 10^3/UL Mean Platelet Volume 10.9 fl Immature Granulocytes % 0.300 % Neutrophils % 70.7 % Lymphocytes % 17.2 % Monocytes % 7.7 % Eosinophils % 3.0 % Basophils % 1.1 % Nucleated Red Blood Cells % 0.0 /100WBC Immature Granulocytes # 0.020 10^3/ul Neutrophils # 4.7 10^3/ul Lymphocytes # 1.1 10^3/ul Monocytes # 0.5 10^3/ul Eosinophils # 0.2 10^3/ul Basophils # 0.1 10^3/ul Nucleated Red Blood Cells # 0.0 10^3/ul Current Medications Medications Dose Sig/Richard Start Time Status Last (Trade) Ordered Route PRN Stop Time Admin Dose Reason Admin Morphine 2 mg ONCE STAT 09/17/18 DC Sulfate IV 05:59 (morphine) 09/17/18 06:01 Ondansetron 4 mg ONCE STAT 09/17/18 DC HCl (Zofran IV 05:59 Inj) 09/17/18 06:01 Ondansetron 4 mg BRIDGE ORDER 09/17/18 HCl (Zofran PRN IV 06:00 Inj) NAUSEA/VOMITI 09/18/18 05:59 NG 650 mg ER BRIDGE 09/17/18 Acetaminophen PRN PO 06:00 (Tylenol .MILD PAIN 09/18/18 05:59 Tab) 1-3 OR TEMP Procedures/MDM MDM The patient's presentation warrants further investigation. Previous medical records, if available, were reviewed. LABS The patient's laboratory testing was obtained and reviewed. No emergent treatment was required unless described below. EKG EKG read by me: Rate/Rhythm: Sinus tachycardia at 103 bpm Intervals: Normal [place]: Normal Impression: No evidence of acute ischemia or emergent arrhythmia IMAGING Imaging and Radiology interpretation reviewed. CXR PENDING XR L Shoulder PENDING TREATMENT/DISPOSITION The patient presents for persistent pain related to a left humeral head fracture. The patient has not been able to follow-up with an orthopedic physician, and she reports not having the capability of doing this on her own. She has not been able to get her pain under control despite multiple prescriptions of opiate medications. The patient previously declined admission to the hospital, but now she is willing. I do feel the patient requires orthopedic evaluation. The on-call orthopedic physician, Dr. Plummer, was consulted and will evaluate the patient in the hospital. Preop testing was ordered. The patient was treated with Tylenol, morphine and Zofran. ADMISSION At this time, I feel that the patient requires admission for further evaluation and management. The patient will be admitted to [Panel] in accordance with the patient's insurance. The patient was accepted by Dr. Sen at 0543AM on 09/17/2018. Disclaimer: Inadvertent spelling and grammatical errors are likely due to EHR/dictation software use and do not reflect on the overall quality of patient care. Note that the electronic time recorded on this note does not necessarily reflect the actual time of the patient encounter. Departure Diagnosis: Primary Impression: Closed fracture of head of left humerus Encounter type: subsequent encounter Fracture healing: with routine healing Qualified Codes: S42.292D - Other displaced fracture of upper end of left humerus, subsequent encounter for fracture with routine healing Additional Impressions: Left shoulder pain Chronicity: unspecified Qualified Codes: M25.512 - Pain in left shoulder Failure of outpatient treatment Condition: CARMINA Martinez MD Sep 17, 2018 05:42
[2018-09-17] MEDS ORDERED: ONDANSETRON 4 MG INJ IV STA (05:59)
[2018-09-17] MEDS ORDERED: morphine 2 MG INJ IV STA (05:59)
[2018-09-17] MEDS ORDERED: ACETAMINOPHEN 325 MG TAB PO PRN ×2 (06:00→07:00)
[2018-09-17] MEDS ORDERED: ONDANSETRON 4 MG INJ IV PRN (06:00)
--- NOTE | 2018-09-17 06:54 | HP ---
Date/Time of Note Date/Time of Note DATE: 09/17/18 TIME: 06:43 Assessment/Plan VTE Prophylaxis Pharmacological prophylaxis: heparin Assessment/Plan Assessment/Plan 1. Left shoulder/upper extremity pain: Status post mechanical fall about 2 weeks ago -Imaging last week shows mildly displaced acute fracture of the lateral aspect of the humeral head and chronic-appearing fracture deformity of the distal radius with dorsal angulation. -Pain management -Awaiting Ortho eval 2. Hypertension: Adjust antihypertensive as needed 3. COPD: No sign of acute exacerbation 4. History of PUD: PPI 5. Depression/anxiety: Continue home med 6. Chronic pain: Consult pain specialist, Dr. Peres Result Diagram: 09/17/18 0558 Results 24hrs Laboratory Tests Test 09/17/18 05:58 White Blood Count 6.6 Red Blood Count 3.72 L Hemoglobin 12.3 Hematocrit 38.6 Mean Corpuscular Volume 103.8 H Mean Corpuscular Hemoglobin 33.1 H Mean Corpuscular Hemoglobin Concent 31.9 L Red Cell Distribution Width 11.9 Platelet Count 351 # Mean Platelet Volume 10.9 H Immature Granulocytes % 0.300 Neutrophils % 70.7 Lymphocytes % 17.2 Monocytes % 7.7 Eosinophils % 3.0 Basophils % 1.1 Nucleated Red Blood Cells % 0.0 Immature Granulocytes # 0.020 Neutrophils # 4.7 Lymphocytes # 1.1 Monocytes # 0.5 Eosinophils # 0.2 Basophils # 0.1 Nucleated Red Blood Cells # 0.0 Prothrombin Time 11.6 L Prothrombin Time Ratio 0.9 INR International Normalized Ratio 0.84 HPI/ROS Admit Date/Time Admit Date/Time Hx of Present Illness This is a 73-year-old female with a history of hypertension, COPD, depression, PUD, documented chronic pain/opiate seeking behavior. Patient presents the ER complaining of left shoulder/upper extremity pain. This is her third visit in the past 1 week. She said she had a mechanical fall about 2 weeks ago. When she came to the ER last week, imaging shows mildly displaced acute fracture of the lateral aspect of the humeral head and chronic-appearing fracture deformity of the distal radius with dorsal angulation. Patient was discharged from the ER with pain medications, however she returned complaining of pain. She was again discharged from the ER and now she is coming back again stating worsening pain. PMH/Family/Social Past Medical History Medications Current Medications Ondansetron HCl (Zofran Inj) 4 mg BRIDGE ORDER PRN IV NAUSEA/VOMITING; Start 09/17/18 at 06:00; Stop 09/18/18 at 05:59 Acetaminophen (Tylenol Tab) 650 mg ER BRIDGE PRN PO .MILD PAIN 1-3 OR TEMP; Start 09/17/18 at 06:00; Stop 09/18/18 at 05:59 Coded Allergies: No Known Allergy (Unverified , 09/11/18) Family History Significant Family History: no pertinent family hx Social History Smoking Status: Former smoker Exam/Review of Systems Vital Signs Vitals Vital Signs Date Temp Pulse Resp B/P (MAP) Pulse Ox O2 O2 Flow FiO2 Time Delivery Rate 09/17/18 98.2 110 18 177/100 97 04:21 (125) Exam Constitutional: other (Mild distress due to pain) Head: normocephalic, atraumatic Eyes: PERRL Respiratory: clear to auscultation Cardiovascular: regular rate and rhythm Musculoskeletal: other (Left shoulder pain) BESSY POLLOCK MD Sep 17, 2018 06:54
[2018-09-17] MEDS ORDERED: NACL 0.9% 3 ML SYG IV SCH (07:00)
[2018-09-17 08:08] VITALS: BP 134/85; PULSE 106; RESP 18
[2018-09-17] MEDS: VENLAFAXINE (XR) 75 MG CAP PO SCH (08:18)
[2018-09-17] MEDS: ATORVASTATIN 20 MG TAB PO SCH (08:39)
[2018-09-17] MEDS: KETOROLAC 30 MG INJ IV PRN ×2 (08:41→15:14)
[2018-09-17] MEDS ORDERED: HEPARIN 5,000 UNIT/1 ML VIAL SC SCH (09:00)
[2018-09-17 09:12] VITALS: Ht 160 cm; Wt 51.7 kg
[2018-09-17] MEDS: clonAZEPAM 0.5 MG TAB PO PRN ×2 (10:21→22:00)
[2018-09-17] MEDS ORDERED: traMADol 50 MG TAB PO SCH (12:00)
[2018-09-17] MEDS: traMADol 50 MG TAB PO SCH ×2 (12:08→18:08)
[2018-09-17] MEDS: ONDANSETRON 4 MG INJ IV PRN (14:31)
--- NOTE | 2018-09-17 15:21 | PN ---
Date/Time of Note Date/Time of Note DATE: 09/17/18 TIME: 15:19 Assessment/Plan VTE Prophylaxis Pharmacological prophylaxis: heparin Assessment/Plan Hospital Course 1. Left shoulder/upper extremity pain: Status post mechanical fall about 2 weeks ago -Imaging last week shows mildly displaced acute fracture of the lateral aspect of the humeral head and chronic-appearing fracture deformity of the distal radius with dorsal angulation. -Pain management -Awaiting Ortho eval 2. Hypertension: Adjust antihypertensive as needed 3. COPD: No sign of acute exacerbation 4. History of PUD: PPI 5. Depression/anxiety: Continue home med 6. Chronic pain -Pain control with Toradol, tramadol and will add morphine for breakthrough pain Prophylaxis: Heparin Result Diagram: 09/17/1858 09/17/1858 Results 24hrs Laboratory Tests Test 09/17/18 05:58 White Blood Count 6.6 Red Blood Count 3.72 L Hemoglobin 12.3 Hematocrit 38.6 Mean Corpuscular Volume 103.8 H Mean Corpuscular Hemoglobin 33.1 H Mean Corpuscular Hemoglobin Concent 31.9 L Red Cell Distribution Width 11.9 Platelet Count 351 # Mean Platelet Volume 10.9 H Immature Granulocytes % 0.300 Neutrophils % 70.7 Lymphocytes % 17.2 Monocytes % 7.7 Eosinophils % 3.0 Basophils % 1.1 Nucleated Red Blood Cells % 0.0 Immature Granulocytes # 0.020 Neutrophils # 4.7 Lymphocytes # 1.1 Monocytes # 0.5 Eosinophils # 0.2 Basophils # 0.1 Nucleated Red Blood Cells # 0.0 Prothrombin Time 11.6 L Prothrombin Time Ratio 0.9 INR International Normalized Ratio 0.84 Sodium Level 144 Potassium Level 4.0 Chloride Level 104 Carbon Dioxide Level 24 Anion Gap 16 H Blood Urea Nitrogen 12 Creatinine 0.80 Est Glomerular Filtrat Rate mL/min Glucose Level 118 Calcium Level 10.3 H Subjective 24 Hr Interval Summary Musculoskeletal: bone/joint pain Exam/Review of Systems Exam Vitals Vital Signs Date Temp Pulse Resp B/P (MAP) Pulse Ox O2 O2 Flow FiO2 Time Delivery Rate 09/17/18 98.4 106 18 134/85 91 Nasal 08:08 (101) Cannula Constitutional: alert, oriented Respiratory: clear to auscultation Cardiovascular: regular rate and rhythm Gastrointestinal: soft; No distended Musculoskeletal: No nl extremities to inspection Results Results 24hrs Laboratory Tests Test 09/17/18 05:58 White Blood Count 6.6 Red Blood Count 3.72 L Hemoglobin 12.3 Hematocrit 38.6 Mean Corpuscular Volume 103.8 H Mean Corpuscular Hemoglobin 33.1 H Mean Corpuscular Hemoglobin Concent 31.9 L Red Cell Distribution Width 11.9 Platelet Count 351 # Mean Platelet Volume 10.9 H Immature Granulocytes % 0.300 Neutrophils % 70.7 Lymphocytes % 17.2 Monocytes % 7.7 Eosinophils % 3.0 Basophils % 1.1 Nucleated Red Blood Cells % 0.0 Immature Granulocytes # 0.020 Neutrophils # 4.7 Lymphocytes # 1.1 Monocytes # 0.5 Eosinophils # 0.2 Basophils # 0.1 Nucleated Red Blood Cells # 0.0 Prothrombin Time 11.6 L Prothrombin Time Ratio 0.9 INR International Normalized Ratio 0.84 Sodium Level 144 Potassium Level 4.0 Chloride Level 104 Carbon Dioxide Level 24 Anion Gap 16 H Blood Urea Nitrogen 12 Creatinine 0.80 Est Glomerular Filtrat Rate mL/min Glucose Level 118 Calcium Level 10.3 H Medications Medication Current Medications Ondansetron HCl (Zofran Inj) 4 mg BRIDGE ORDER PRN IV NAUSEA/VOMITING; Start at 06:00; Stop 09/18/18 at 05:59 Acetaminophen (Tylenol Tab) 650 mg ER BRIDGE PRN PO .MILD PAIN 1-3 OR TEMP; Start 09/17/18 at 06:00; Stop 09/18/18 at 05:59 IV Flush (NS 3 ml) 3 ml PER PROTOCOL IV ; Start 09/17/18 at 07:00 Ondansetron HCl (Zofran Inj) 4 mg Q6H PRN IV NAUSEA/VOMITING Last administered on 09/17/18at 14:31; Admin Dose 4 MG; Start 09/17/18 at 07:00 Acetaminophen (Tylenol Tab) 650 mg Q6H PRN PO .PAIN 1-3 OR TEMP; Start 09/17/18 at 07:00 Heparin Sodium (Porcine) (Heparin (5000 Units/1ml)) 5,000 unit Q12 SC ; Start 09/17/18 at 09:00; Status Hold Albuterol/ Ipratropium (Duoneb) 3 ml Q2H RESP THERAPY PRN HHN SHORTNESS OF BREATH; Start 09/17/18 at 07:00 Ketorolac Tromethamine (Toradol) 30 mg Q6H PRN IV pain Last administered on 09/17/18 15:14; Admin Dose 30 MG; Start 09/17/18 at 07:00; Stop 09/20/18 at 06:59 Atorvastatin Calcium (Lipitor) 20 mg DAILY PO Last administered on 09/17/18 08:39; Admin Dose 20 MG; Start 09/17/18 at 09:00 Clonazepam (Klonopin) 1 mg BID PRN PO ANXIETY Last administered on 09/17/18 10:21; Admin Dose 1 MG; Start 09/17/18 at 07:00 Ranitidine HCl (Zantac) 300 mg HS PO ; Start 09/17/18 at 21:00 Venlafaxine HCl (Effexor Xr) 300 mg DAILY PO ; Start 09/17/18 at 09:00 Tramadol HCl (Ultram) 100 mg Q6 PO Last administered on 09/17/18 12:08; Admin Dose 100 MG; Start 09/17/18 at 12:00 YUMIKO ROLON Sep 17, 2018 15:21
[2018-09-17 15:40] VITALS: BP 145/85; PULSE 93; RESP 18
[2018-09-17] MEDS: morphine 2 MG INJ IV PRN ×3 (16:20→23:01)
[2018-09-17] MEDS: ALBUTEROL/IPRATROPIUM (NEB) 3 ML AMP HHN PRN ×2 (17:03→23:40)
[2018-09-17 20:50] VITALS: BP 140/81; PULSE 92; RESP 20
[2018-09-17] MEDS ORDERED: RANITIDINE 150 MG TAB PO SCH (21:00)
--- NOTE | 2018-09-17 22:57 | CONS ---
Assessment/Plan Assessment/Plan Hospital Course (Demo Recall) 73-year-old female with minimally displaced left proximal humerus fracture. Given that this is minimally displaced this should be treated nonoperatively. She should be placed in a sling. No motion for 2 weeks from the date of injury. After that she should begin pendulums. At about 6 weeks if there is healing on x-ray she should begin limited and gentle passive active assisted range of motion. She should remain nonweightbearing. Consultation Date/Type/Reason Admit Date/Time Date of Consultation: Sep 17, 2018 Reason for Consultation Left proximal humerus fracture Date/Time of Note DATE: 09/17/18 TIME: 22:51 Hx of Present Illness 73-year-old female with multiple medical problems including chronic use of oxygen, anxiety who presented to the emergency department for uncontrollable pain after left proximal humerus fracture. She sustained a left proximal humerus fracture 9 days ago. She has been being treated nonoperatively. She has not fallen since her original fall. She denies numbness and tingling. She states the pain is unbearable. She is extremely anxious. The pain is localized only to the left shoulder. Patient denies fever, chills, shortness of breath, chest pain, nausea/vomiting, constipation, diarrhea, numbness, and tingling. Past Medical History COPD Anxiety Hypertension Chronic pain Home Meds Active Scripts Ibuprofen* (Motrin*) 600 Mg Tab, 600 MG PO Q6H PRN for PAIN AND OR ELEVATED TEMP, #14 TAB Take with food Prov:CLARA WATERS MD 09/11/18 Ondansetron (Ondansetron Odt) 4 Mg Tab.rapdis, 4 MG PO Q6H PRN for NAUSEA AND/OR VOMITING, #10 TAB Prov:CLARA WATERS MD 09/11/18 Hydrocodone/Acetaminophen ([place] 5-325 Tablet) 1 Each Tablet, 1 TAB PO Q6H PRN for PAIN, #7 TAB Prov:CLARA WAETRS MD 09/11/18 Ondansetron Hcl* (Zofran*) 4 Mg Tablet, 4 MG PO Q8H PRN for NAUSEA AND/OR VOMITING, #30 TAB Prov:ANDREAS RANGEL 09/09/18 Hydrocodone/Acetaminophen ([place] 5-325 Tablet) 1 Each Tablet, 1 EACH PO TID for pain, #10 TAB Prov:ANDREAS RANGEL 09/09/18 Polyethylene Glycol* (Miralax*) 17 Gm Powd.pack, 17 GM PO DAILY, #7 Prov:KALA SAUNDERS DO 10/30/17 Tramadol HCl (Tramadol HCl) 50 Mg Tab, 50 MG PO Q6, #8 TAB Prov:LANG STEVENS MD 03/25/15 Reported Medications Aspirin/Acetaminophen/Caffeine (Excedrin Extra Strength Caplet) 1 Each Tablet, 2 EACH PO Q2H, TAB 02/24/18 Docusate Sodium* (Doc-Q-Lace*) 100 Mg Capsule, 200 MG PO DAILY, CAP 02/24/18 Naproxen* (Aleve*) 220 Mg Capsule, 220 MG PO BID, #60 CAP 02/24/18 Omeprazole* (Omeprazole*) 40 Mg Capsule.dr, 40 MG PO DAILY, #30 CAP 02/24/18 Ranitidine Hcl* (Ranitidine Hcl*) 300 Mg Tablet, 300 MG PO HS, #30 TAB 02/24/18 Clonazepam* (Clonazepam*) 1 Mg Tablet, 1 MG PO BID PRN for ANXIETY, TAB take 1 tablet QAM by mouth and QPM 02/24/18 Albuterol Sulfate* (Ventolin HFA*) 18 Gm Hfa.aer.ad, 2 PUFF INHALATION Q4H, #1 INHALER 04/26/17 Atorvastatin Calcium* (Atorvastatin Calcium*) 20 Mg Tablet, 20 MG PO DAILY 11/04/12 Venlafaxine Hcl* (Effexor XR*) 150 Mg Cap.sr.24h, 300 MG PO DAILY 11/04/12 Discontinued Reported Medications Amlodipine Besylate* (Amlodipine Besylate*) 10 Mg Tablet, 10 MG PO DAILY, #30 TAB 02/24/18 Medications Current Medications Ondansetron HCl (Zofran Inj) 4 mg BRIDGE ORDER PRN IV NAUSEA/VOMITING; Start 09/17/18 at 06:00; Stop 09/18/18 at 05:59 Acetaminophen (Tylenol Tab) 650 mg ER BRIDGE PRN PO .MILD PAIN 1-3 OR TEMP; Start 09/17/18 at 06:00; Stop 09/18/18 at 05:59 IV Flush (NS 3 ml) 3 ml PER PROTOCOL IV ; Start 09/17/18 at 07:00 Ondansetron HCl (Zofran Inj) 4 mg Q6H PRN IV NAUSEA/VOMITING Last administered on 09/17/18at 14:31; Admin Dose 4 MG; Start 09/17/18 at 07:00 Acetaminophen (Tylenol Tab) 650 mg Q6H PRN PO .PAIN 1-3 OR TEMP; Start 09/17/18 at 07:00 Heparin Sodium (Porcine) (Heparin (5000 Units/1ml)) 5,000 unit Q12 SC ; Start 09/17/18 at 09:00; Status Hold Albuterol/ Ipratropium (Duoneb) 3 ml Q2H RESP THERAPY PRN HHN SHORTNESS OF BREATH Last administered on 09/17/18 17:03; Admin Dose 3 ML; Start 09/17/18 at 07:00 Ketorolac Tromethamine (Toradol) 30 mg Q6H PRN IV pain Last administered on 09/17/18 15:14; Admin Dose 30 MG; Start 09/17/18 at 07:00; Stop 09/20/18 at 06:59 Atorvastatin Calcium (Lipitor) 20 mg DAILY PO Last administered on 09/17/18 08:39; Admin Dose 20 MG; Start 09/17/18 at 09:00 Clonazepam (Klonopin) 1 mg BID PRN PO ANXIETY Last administered on 09/17/18 22:00; Admin Dose 1 MG; Start 09/17/18 at 07:00 Ranitidine HCl (Zantac) 300 mg HS PO Last administered on 09/17/18 22:03; Admin Dose 300 MG; Start 09/17/18 at 21:00 Venlafaxine HCl (Effexor Xr) 300 mg DAILY PO ; Start 09/17/18 at 09:00 Tramadol HCl (Ultram) 100 mg Q6 PO Last administered on 09/17/18 18:08; Admin Dose 100 MG; Start 09/17/18 at 12:00 Morphine Sulfate (morphine) 2 mg Q3 PRN IV SEVERE PAIN LEVEL 7-10 Last administered on 09/17/18 20:03; Admin Dose 2 MG; Start 09/17/18 at 15:30 Allergies: Coded Allergies: No Known Allergy (Unverified , 09/11/18) Past Surgical History Past Surgical Hx: noncontributory Family History Significant Family History: no pertinent family hx Social History Smoking Status: Former smoker Exam/Review of Systems Exam Vitals Vital Signs Date Temp Pulse Resp B/P (MAP) Pulse Ox O2 O2 Flow FiO2 Time Delivery Rate 09/17/18 98.6 92 20 140/81 96 Nasal 20:50 (100) Cannula 09/17/18 2.0 17:05 Exam General: Awake, alert, in no acute distress, pleasant and cooperative Heart: regular rhythm Lungs: breathing comfortably, no tachypnea or dyspnea MUSCULOSKELETAL: Left lower extremity: Skin intact. There is ecchymosis over the anterior shoulder and axilla. Tender to palpation of the proximal humerus. No gross deformity. Minimal swelling. Sensation intact to light touch in a median, ulnar, radial, and axillary distribution. Motor is intact in a median, ulnar, radial, anterior interosseous, and posterior interosseous nerve distribution. Radial and ulnar artery are +2. Wrist extension and flexion are intact. Compartments are soft. Results Result Diagram: 09/17/18 0558 09/17/18 0558 Results 24hrs Laboratory Tests Test 09/17/18 05:58 White Blood Count 6.6 Red Blood Count 3.72 L Hemoglobin 12.3 Hematocrit 38.6 Mean Corpuscular Volume 103.8 H Mean Corpuscular Hemoglobin 33.1 H Mean Corpuscular Hemoglobin Concent 31.9 L Red Cell Distribution Width 11.9 Platelet Count 351 # Mean Platelet Volume 10.9 H Immature Granulocytes % 0.300 Neutrophils % 70.7 Lymphocytes % 17.2 Monocytes % 7.7 Eosinophils % 3.0 Basophils % 1.1 Nucleated Red Blood Cells % 0.0 Immature Granulocytes # 0.020 Neutrophils # 4.7 Lymphocytes # 1.1 Monocytes # 0.5 Eosinophils # 0.2 Basophils # 0.1 Nucleated Red Blood Cells # 0.0 Prothrombin Time 11.6 L Prothrombin Time Ratio 0.9 INR International Normalized Ratio 0.84 Sodium Level 144 Potassium Level 4.0 Chloride Level 104 Carbon Dioxide Level 24 Anion Gap 16 H Blood Urea Nitrogen 12 Creatinine 0.80 Est Glomerular Filtrat Rate mL/min Glucose Level 118 Calcium Level 10.3 H Imaging Imaging 2 views of the left shoulder are reviewed: Demonstrate acute fracture valgus impacted surgical neck fracture. Possible involvement of greater tuberosity with minimal displacement. Good cortical contact. This is unchanged to previous x-ray 8 days ago. Medications Medication Current Medications Ondansetron HCl (Zofran Inj) 4 mg BRIDGE ORDER PRN IV NAUSEA/VOMITING; Start 09/17/18 at 06:00; Stop 09/18/18 at 05:59 Acetaminophen (Tylenol Tab) 650 mg ER BRIDGE PRN PO .MILD PAIN 1-3 OR TEMP; Start 09/17/18 at 06:00; Stop 09/18/18 at 05:59 IV Flush (NS 3 ml) 3 ml PER PROTOCOL IV ; Start 09/17/18 at 07:00 Ondansetron HCl (Zofran Inj) 4 mg Q6H PRN IV NAUSEA/VOMITING Last administered on 09/17/18at 14:31; Admin Dose 4 MG; Start 09/17/18 at 07:00 Acetaminophen (Tylenol Tab) 650 mg Q6H PRN PO .PAIN 1-3 OR TEMP; Start 09/17/18 at 07:00 Heparin Sodium (Porcine) (Heparin (5000 Units/1ml)) 5,000 unit Q12 SC ; Start 09/17/18 at 09:00; Status Hold Albuterol/ Ipratropium (Duoneb) 3 ml Q2H RESP THERAPY PRN HHN SHORTNESS OF BREATH Last administered on 09/17/18at 17:03; Admin Dose 3 ML; Start 09/17/18 at 07:00 Ketorolac Tromethamine (Toradol) 30 mg Q6H PRN IV pain Last administered on 09/17/18at 15:14; Admin Dose 30 MG; Start 09/17/18 at 07:00; Stop 09/20/18 at 06:59 Atorvastatin Calcium (Lipitor) 20 mg DAILY PO Last administered on 09/17/18at 08:39; Admin Dose 20 MG; Start 09/17/18 at 09:00 Clonazepam (Klonopin) 1 mg BID PRN PO ANXIETY Last administered on 09/17/18at 22:00; Admin Dose 1 MG; Start 09/17/18 at 07:00 Ranitidine HCl (Zantac) 300 mg HS PO Last administered on 09/17/18at 22:03; Admi n Dose 300 MG; Start 09/17/18 at 21:00 Venlafaxine HCl (Effexor Xr) 300 mg DAILY PO ; Start 09/17/18 at 09:00 Tramadol HCl (Ultram) 100 mg Q6 PO Last administered on 09/17/18 18:08; Admin Dose 100 MG; Start 09/17/18 at 12:00 Morphine Sulfate (morphine) 2 mg Q3 PRN IV SEVERE PAIN LEVEL 7-10 Last a dministered on 09/17/18at 20:03; Admin Dose 2 MG; Start 09/17/18 at 15:30 JOHANNA POSADA MD Sep 17, 2018 22:57
[2018-09-18] MEDS: traMADol 50 MG TAB PO SCH ×4 (00:10→18:37)
[2018-09-18] MEDS: morphine 2 MG INJ IV PRN ×4 (02:07→16:49)
[2018-09-18 02:27] VITALS: BP 138/78; PULSE 95; RESP 20
[2018-09-18 07:14] VITALS: BP 168/86; PULSE 121; RESP 18
[2018-09-18] MEDS: VENLAFAXINE (XR) 75 MG CAP PO SCH (09:36)
[2018-09-18] MEDS: ATORVASTATIN 20 MG TAB PO SCH (09:36)
--- NOTE | 2018-09-18 11:41 | PDOCDIS ---
Discharge Instructions CONDITION [id number] Patient Condition: [id number] Good HOME CARE INSTRUCTIONS: [id number] Diet Instructions: [id number] Regular ACTIVITY: [id number] Activity Restrictions [id number] No motion for 2 weeks from Comment: the date of injury FOLLOW UP/APPOINTMENTS Follow-up Plan FOLLOW UP WITH YOUR PRIMARY CARE PHYSICIAN IN 1-2 WEEKS OTHER ORDERS: Other Orders: No motion for 2 weeks from the date of injury. After that begin pendulums. At about 6 weeks if there is healing on x-ray she should begin limited and gentle passive active assisted range of motion. Remain nonweightbearing. YUMIKO ROLON Sep 18, 2018 11:41
[2018-09-18] MEDS: clonAZEPAM 0.5 MG TAB PO PRN (12:06)
[2018-09-18 13:45] VITALS: BP 165/90; PULSE 112; RESP 18
--- NOTE | 2018-09-18 15:43 | DS ---
Date/Time of Note Date/Time of Note DATE: 09/18/18 TIME: 15:41 Discharge Summary Admission/Discharge Info Admit Date/Time Sep 17, 2018 at 06:00 Discharge Date/Time September 18, 2018 Discharge Diagnosis 1. Left shoulder/upper extremity pain: Status post mechanical fall about 2 weeks ago -Imaging last week shows mildly displaced acute fracture of the lateral aspect of the humeral head and chronic-appearing fracture deformity of the distal radius with dorsal angulation. -Pain management -Ortho consultation appreciated, no surgery indicated, recommendation is for conservative care with sling placement and outpatient follow-up 2. Hypertension: Continue home meds 3. COPD: No sign of acute exacerbation 4. History of PUD: PPI 5. Depression/anxiety: Continue home med 6. Chronic pain -Pain control Patient Condition: Good Hospital Course Patient is a 73-year-old female with history of hypertension, COPD, depression and anxiety, chronic pain as well as repeated falls. Patient presents after a mechanical fall 2 weeks ago, imaging showed a mildly displaced acute fracture of the left lateral aspect of the humeral head and chronic appearing fracture deformity of the distal radius with dorsal angulation. Patient was seen by Rohini Limon and recommendation was for splint placement, no surgery was indicated. Patient was stable for DC, on day of discharge patient's vitals, labs and physical exam are stable. Home Meds Active Scripts Ibuprofen* (Motrin*) 600 Mg Tab, 600 MG PO Q6H PRN for PAIN AND OR ELEVATED TEMP, #14 TAB Take with food Prov:CLARA WATERS MD 09/11/18 Ondansetron (Ondansetron Odt) 4 Mg Tab.rapdis, 4 MG PO Q6H PRN for NAUSEA AND/OR VOMITING, #10 TAB Prov:CLARA WATERS MD 09/11/18 Hydrocodone/Acetaminophen ([place] 5-325 Tablet) 1 Each Tablet, 1 TAB PO Q6H PRN for PAIN, #7 TAB Prov:CLARA WATERS MD 09/11/18 Ondansetron Hcl* (Zofran*) 4 Mg Tablet, 4 MG PO Q8H PRN for NAUSEA AND/OR VOMITING, #30 TAB Prov:ANDREAS RANGEL 09/09/18 Hydrocodone/Acetaminophen ([place] 5-325 Tablet) 1 Each Tablet, 1 EACH PO TID for pain, #10 TAB Prov:ANDREAS RANGEL 09/09/18 Polyethylene Glycol* (Miralax*) 17 Gm Powd.pack, 17 GM PO DAILY, #7 Prov:KALA SAUNDERS DO 10/30/17 Tramadol HCl (Tramadol HCl) 50 Mg Tab, 50 MG PO Q6, #8 TAB Prov:LANG STEVENS MD 03/25/15 Reported Medications Aspirin/Acetaminophen/Caffeine (Excedrin Extra Strength Caplet) 1 Each Tablet, 2 EACH PO Q2H, TAB 02/24/18 Docusate Sodium* (Doc-Q-Lace*) 100 Mg Capsule, 200 MG PO DAILY, CAP 02/24/18 Naproxen* (Aleve*) 220 Mg Capsule, 220 MG PO BID, #60 CAP 02/24/18 Omeprazole* (Omeprazole*) 40 Mg Capsule.dr, 40 MG PO DAILY, #30 CAP 02/24/18 Ranitidine Hcl* (Ranitidine Hcl*) 300 Mg Tablet, 300 MG PO HS, #30 TAB 02/24/18 Clonazepam* (Clonazepam*) 1 Mg Tablet, 1 MG PO BID PRN for ANXIETY, TAB take 1 tablet QAM by mouth and QPM 02/24/18 Albuterol Sulfate* (Ventolin HFA*) 18 Gm Hfa.aer.ad, 2 PUFF INHALATION Q4H, #1 INHALER 04/26/17 Atorvastatin Calcium* (Atorvastatin Calcium*) 20 Mg Tablet, 20 MG PO DAILY 11/04/12 Venlafaxine Hcl* (Effexor XR*) 150 Mg Cap.sr.24h, 300 MG PO DAILY 11/04/12 Discontinued Reported Medications Amlodipine Besylate* (Amlodipine Besylate*) 10 Mg Tablet, 10 MG PO DAILY, #30 TAB 02/24/18 Follow-up Plan FOLLOW UP WITH YOUR PRIMARY CARE PHYSICIAN IN 1-2 WEEKS Primary Care Provider Not On Staff Doctor Time spent on discharge: > 30 minutes YUMIKO ROLON Sep 18, 2018 15:43
[2018-09-18] MEDS: ONDANSETRON 4 MG INJ IV PRN (16:49)
[2018-09-18 20:12] VITALS: BP 148/78; PULSE 100; RESP 20
[2018-09-18 20:20] VITALS: BP 125/70; PULSE 90
== END 2018-09-18 21:00 | disposition home or self-care (01) | DRG 92 ==
LOC: E/R 04:03 → MS1 06:00
PROVIDERS: ADMIT Internal Medicine; ATTEND Internal Medicine
DX: G89.29 Other chronic pain (principal); S42.292A Other displaced fracture of upper end of left humerus, initial encounter for closed fracture; I10 Essential (primary) hypertension; E78.5 Hyperlipidemia, unspecified; J44.9 Chronic obstructive pulmonary disease, unspecified; M21.832 Other specified acquired deformities of left forearm; G40.909 Epilepsy, unspecified, not intractable, without status epilepticus; F41.9 Anxiety disorder, unspecified; F32.9 Major depressive disorder, single episode, unspecified; R29.6 Repeated falls; Z87.11 Personal history of peptic ulcer disease; Z87.891 Personal history of nicotine dependence; W19.XXXD Unspecified fall, subsequent encounter
CPT/HCPCS: 71045; 73030; 80048; 80053; 82270; 83735; 84100; 85025; 85610; 86850; 86900; 86901; 87081; 93005; 94640; 94664; J1644; J1885; J2270; J2405

== ENCOUNTER 2018-11-06 12:40 | Emergency (ER) | payer MEDICARE, OTHER ==
[~2018-11-06] VITALS: Wt 44.0 kg
[2018-11-06 12:46] VITALS: RESP 22
[2018-11-06] MEDS ORDERED: CLON-412 PO (12:50)
[2018-11-06] MEDS ORDERED: TRAM50TA2 PO (12:50)
[2018-11-06] MEDS ORDERED: traMADol 50 MG TAB PO ONE (13:00)
[2018-11-06] MEDS ORDERED: LIDOCAINE/MYLANTA 40 ML BTL PO ONE (13:00)
[2018-11-06] MEDS ORDERED: clonAZEPAM 0.5 MG TAB PO ONE (13:00)
[2018-11-06] MEDS ORDERED: ONDANSETRON (ODT) 4 MG TAB ODT STA (15:06)
--- NOTE | 2018-11-06 15:09 | ERD ---
ER Documentation Chief Complaint Chief Complaint AP FOR THE PAST 5 DAYS. NO VOMTING. NAUSEATED. NO DIARRHEA PER PT HPI Patient is a 73-year-old female with COPD, ulcer, and anxiety who presents for abdominal pain. The patient was brought in by ambulance. The patient said that she ran out of her Klonopin and tramadol about 1 week ago and then 5 days ago started with abdominal pain and anxiety. The patient said that she has been on Klonopin and tramadol for a long time. The patient has multiple visits for various complaints upon review of old medical records. Review of the emergency department information exchange system shows visits to 2 separate emergency departments for a total of 6 visits over the past 1 year. She says her primary doctor is Dr. Carreon but that he is out on a medical leave. ROS All systems reviewed and are negative except as per history of present illness. Medications Home Meds Active Scripts Tramadol HCl (Tramadol HCl) 50 Mg Tablet, 50 MG PO Q6 PRN for PAIN, #10 TAB Prov:PEACE HERNANDEZ MD 11/06/18 Clonazepam* (Klonopin*) 1 Mg Tablet, 1 MG PO Q8H PRN for ANXIETY, #4 TAB Prov:PEACE HERNANDEZ MD 11/06/18 Ibuprofen* (Motrin*) 600 Mg Tab, 600 MG PO Q6H PRN for PAIN AND OR ELEVATED TEMP, #14 TAB Take with food Prov:CLARA WATERS MD 09/11/18 Ondansetron (Ondansetron Odt) 4 Mg Tab.rapdis, 4 MG PO Q6H PRN for NAUSEA AND/OR VOMITING, #10 TAB Prov:CLARA WATERS MD 09/11/18 Hydrocodone/Acetaminophen ([place] 5-325 Tablet) 1 Each Tablet, 1 TAB PO Q6H PRN for PAIN, #7 TAB Prov:CLARA WATERS MD 09/11/18 Ondansetron Hcl* (Zofran*) 4 Mg Tablet, 4 MG PO Q8H PRN for NAUSEA AND/OR VOMITING, #30 TAB Prov:ANDREAS RANGEL 09/09/18 Hydrocodone/Acetaminophen ([place] 5-325 Tablet) 1 Each Tablet, 1 EACH PO TID for pain, #10 TAB Prov:ANDREAS RANGEL 09/09/18 Polyethylene Glycol* (Miralax*) 17 Gm Powd.pack, 17 GM PO DAILY, #7 Prov:KALA SAUNDERS DO 10/30/17 Tramadol HCl (Tramadol HCl) 50 Mg Tab, 50 MG PO Q6, #8 TAB Prov:LANG STEVENS MD 03/25/15 Reported Medications Aspirin/Acetaminophen/Caffeine (Excedrin Extra Strength Caplet) 1 Each Tablet, 2 EACH PO Q2H, TAB 02/24/18 Docusate Sodium* (Doc-Q-Lace*) 100 Mg Capsule, 200 MG PO DAILY, CAP 02/24/18 Naproxen* (Aleve*) 220 Mg Capsule, 220 MG PO BID, #60 CAP 02/24/18 Omeprazole* (Omeprazole*) 40 Mg Capsule.dr, 40 MG PO DAILY, #30 CAP 02/24/18 Ranitidine Hcl* (Ranitidine Hcl*) 300 Mg Tablet, 300 MG PO HS, #30 TAB 02/24/18 Clonazepam* (Clonazepam*) 1 Mg Tablet, 1 MG PO BID PRN for ANXIETY, TAB take 1 tablet QAM by mouth and QPM 02/24/18 Albuterol Sulfate* (Ventolin HFA*) 18 Gm Hfa.aer.ad, 2 PUFF INHALATION Q4H, #1 INHALER 04/26/17 Atorvastatin Calcium* (Atorvastatin Calcium*) 20 Mg Tablet, 20 MG PO DAILY 11/04/12 Venlafaxine Hcl* (Effexor XR*) 150 Mg Cap.sr.24h, 300 MG PO DAILY 11/04/12 Allergies Allergies: Coded Allergies: No Known Allergy (Unverified , 09/11/18) PMhx/Soc History of Surgery: Yes (stomach sx) Anesthesia Reaction: No Hx Neurological Disorder: Yes (short term memory) Hx Respiratory Disorders: Yes (copd) Hx Cardiac Disorders: No Hx Psychiatric Problems: No Hx Miscellaneous Medical Probl: No Hx Alcohol Use: No Hx Substance Use: No Hx Tobacco Use: No FmHx Family History: No diabetes Physical Exam Vitals Vital Signs Date Temp Pulse Resp B/P (MAP) Pulse Ox O2 O2 Flow FiO2 Time Delivery Rate 11/06/18 97.8 125 22 145/98 98 12:46 (114) Physical Exam Const: No acute distress Head: Atraumatic Eyes: Normal Conjunctiva ENT: Normal External Ears, Nose and Mouth. Neck: Full range of motion. No meningismus. Resp: Clear to auscultation bilaterally Cardio: Regular rate and rhythm, no murmurs Abd: Soft, mild tenderness to palpation in the epigastric region without rebound or guarding Skin: No petechiae or rashes Back: No midline or flank tenderness Ext: No cyanosis, or edema Neur: Awake and alert Psych: Anxious Results 24 hrs Current Medications Medications Dose Sig/Richard Start Time Status Last (Trade) Ordered Route PRN Stop Time Admin Dose Reason Admin Clonazepam 1 mg ONCE ONCE 11/06/18 DC 11/06/18 (Klonopin) PO 13:00 13:24 11/06/18 13:01 Tramadol 50 mg ONCE ONCE 11/06/18 DC 11/06/18 HCl PO 13:00 13:24 (Ultram) 11/06/18 13:01 40 ml ONCE ONCE 11/06/18 DC 11/06/18 Miscellaneous PO 13:00 13:23 Medication 11/06/18 13:01 (Gi Cocktail (2)) Procedures/MDM Patient is a 73-year-old female who presents with acute on chronic pain. I believe this is likely related to the fact that she has not been taking her Klonopin and tramadol for the past week because she ran out. She was given doses of tramadol, Klonopin, and GI cocktail as well as Zofran. She feels better. I do not believe she requires further work-up or admission in the hospital at this time. I doubt appendicitis, cholecystitis, pancreatitis, or bowel obstruction. The patient will be given a list of local clinics that she could not see her primary doctor. She will be given a 2-day course of tramadol and Klonopin. Departure Diagnosis: Primary Impression: Abdominal pain Abdominal location: epigastric Qualified Codes: R10.13 - Epigastric pain Condition: Fair Patient Instructions: Abdominal Pain Referrals: COMM[facility]ITY CLIN[facility] YOU HAVE RECEIVED A MEDICAL SCREENING EXAM AND THE RESULTS INDICATE THAT YOU DO NOT HAVE A CONDITION THAT REQUIRES URGENT TREATMENT IN THE EMERGENCY DEPARTMENT. FURTHER EVALUATION AND TREATMENT OF YOUR CONDITION CAN WAIT UNTIL YOU ARE SEEN IN YOUR DOCTORS OFFICE WITHIN THE NEXT 1-2 DAYS. IT IS YOUR RESPONSIBILITY TO MAKE AN APPOINTMENT FOR FOLOW-UP CARE. IF YOU HAVE A PRIMARY DOCTOR --you should call your primary doctor and schedule an appointment IF YOU DO NOT HAVE A PRIMARY DOCTOR YOU CAN CALL OUR PHYSICIAN REFERRAL HOTLINE AT IF YOU CAN NOT AFFORD TO SEE A PHYSICIAN YOU CAN CHOSE FROM THE FOLLOWING [facility] [address] [facility] [address] [facility] [facility] [address] [facility] [address] [facility]. [facility] [address] [facility]. [facility]. [address] Additional Instructions: Call your primary care doctor TOMORROW for an appointment during the next 1-2 days.See the doctor sooner or return here if your condition worsens before your appointment time. PEACE HERNANDEZ MD November 06, 2018 15:09
[2018-11-06 16:18] VITALS: BP 139/94; PULSE 123
== END 2018-11-06 17:09 | disposition home or self-care (01) ==
LOC: E/R 12:40
DX: R10.13 Epigastric pain (principal); J44.9 Chronic obstructive pulmonary disease, unspecified
CPT/HCPCS: 99283

== ENCOUNTER 2018-11-06 22:31 | Inpatient (IN) | payer MEDICARE, OTHER ==
[~2018-11-06] VITALS: Ht 160 cm; Wt 44.5 kg
[~2018-11-06 22:31] MED LIST changes: +CLON-412 PO
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
[2018-11-07] VITALS (9 sets, daily range): BP systolic 108–192; BP diastolic 64–101; PULSE 110–130; RESP 16–18; Ht 160 cm; Wt 44.5 kg
[2018-11-07] MEDS ORDERED: ONDANSETRON 4 MG INJ IV ONE ×2 (00:24→02:16)
[2018-11-07] MEDS ORDERED: CEFTRIAXONE 1 GM/50 ML (PMX) 50 ML IVPB ONE (02:00)
[2018-11-07] MEDS ORDERED: SOD CHLORIDE 0.9% 100 ML ONE (02:12)
[2018-11-07] MEDS ORDERED: IOHEXOL 100 ML ONE (02:12)
[2018-11-07] MEDS ORDERED: morphine 2 MG INJ IV ONE (02:16)
[2018-11-07] MEDS: clonAZEPAM 0.5 MG TAB PO PRN ×2 (06:58→20:05)
[2018-11-07] MEDS: traMADol 50 MG TAB PO PRN ×3 (06:58→13:59)
[2018-11-07] MEDS ORDERED: ACETAMINOPHEN 325 MG TAB PO PRN (07:00)
[2018-11-07] MEDS ORDERED: DOCUSATE SODIUM 100 MG CAP PO PRN (07:00)
[2018-11-07] MEDS ORDERED: NACL 0.9% 3 ML SYG IV SCH (07:00)
[2018-11-07] MEDS ORDERED: ALBUTEROL 18 GM INHALER INH PRN (07:00)
[2018-11-07] MEDS ORDERED: BISACODYL (EC) 5 MG TAB PO PRN (07:00)
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
[2018-11-07] MEDS ORDERED: NON-FORMULARY/PATIENT OWN MED (Omeprazole* 40 MG) PO SCH (09:00)
[2018-11-07] MEDS ORDERED: VENLAFAXINE (XR) 75 MG CAP PO SCH (09:00)
[2018-11-07] MEDS ORDERED: hydrALAzine 20 MG INJ IV PRN (09:00)
[2018-11-07] MEDS: LOSARTAN 25 MG TAB PO SCH (09:05)
[2018-11-07] MEDS: POLYETHYLENE GLYCOL 17 GM PACKET PO SCH (09:55)
[2018-11-07] MEDS: PANTOPRAZOLE (EC) 40 MG TAB PO SCH (09:55)
[2018-11-07] MEDS: DOCUSATE SODIUM 100 MG CAP PO SCH (09:56)
[2018-11-07] MEDS ORDERED: ALBUTEROL HFA 8 GM INHALER INH PRN (09:56)
[2018-11-07] MEDS: ATORVASTATIN 20 MG TAB PO SCH (09:56)
--- NOTE | 2018-11-07 10:35 | PN ---
Date/Time of Note Date/Time of Note DATE: 11/07/18 TIME: 10:32 Assessment/Plan VTE Prophylaxis SCD applied (from Nsg): Yes Pharmacological prophylaxis: LMWH Lines/Catheters IV Catheter Type (from Nrsg): Saline Lock Assessment/Plan Hospital Course SUBJECTIVE: Complains of dyspnea. Verbalized minimal abdominal pain. OBJECTIVE: Physical Exam General: Thin, frail looking, 73 year-old female lying in bed in mild respiratory distress. HEENT: Normocephalic, atraumatic. Eyes: Anicteric sclerae, conjunctivae clear. ENT: Nasal septum midline, oral mucosa moist. Neck supple, no JVD noticed. Respiratory: Bilaterally diminished breath sounds. Use of accessory muscles of respiration. Cardiovascular: S1, S2 heard. Tachycardia. Abdomen: Soft, nontender, and nondistended. Bowel sounds positive in all 4 quadrants. Genitourinary: Deferred. Extremities: No cyanosis, no edema. Peripheral pulses palpable. Neurologic: Cranial nerves II through XII grossly intact. The patient is awake, alert, and oriented. Skin: Normal skin turgor. No skin rashes. Labs & Vitals per chart ASSESSMENT & PLAN 73 year old female with past medical COPD, hypertension, dyslipidemia, depression, anxiety, chronic pain and peptic ulcer disease. 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 However, she recently ran out of her benzodiazepines. The patient came to the emergency room complaining of abdominal pain. CT of the abdomen was showing no acute inflammatory process in the abdomen and pelvis with no significant interval change in the infrarenal aortic aneurysm. Patient had evidence of underlying benzodiazepine withdrawal. Therefore, the patient was admitted to inpatient setting. 1. Benzodiazepine withdrawal. -The patient was resumed on Klonopin. -Pending psychiatry evaluation. -Monitor for withdrawal symptoms including seizures. 2. Positive urinalysis. -Continue empiric ABX. -Await final cultures. 3. Hypertension. -Continue antihypertensives. -Adjust antihypertensives to obtain optimal blood pressure control.. 4. COPD. -Continue inhaled bronchodilators (CATY). -Add LABA -Short course of steroids. 5. Dyslipidemia -Continue statins. 6. Depression. -Continue SNRI (Effexor). 7. Infrarenal aortic aneurysm -CTA showing no significant change. -Continue blood pressure control. 8. Chronic pain. -Continue analgesics. 9. Anxiety disorder with panic attacks. -Continue anxiolytics. -Pending psych evaluation. 10. Peptic ulcer disease. -Continue proton pump inhibitors. 11. Fluids, electrolytes, and nutrition. -Low-cholesterol diet. 12. DVT prophylaxis. -Subcutaneous Lovenox. 13. Plan. -Continue Klonopin. -Continue antimicrobials for underlying urinary tract infection. -Await psych evaluation. The patient was seen in collaboration with Dr. Longo. Result Diagram: 11/06/18 2340 11/06/18 2340 Results 24hrs Laboratory Tests Test 11/06/18 23:40 11/07/18 00:14 White Blood Count 10.1 # Red Blood Count 4.14 #L Hemoglobin 13.9 # Hematocrit 41.4 # Mean Corpuscular Volume 100.0 Mean Corpuscular Hemoglobin 33.6 H Mean Corpuscular Hemoglobin Concent 33.6 Red Cell Distribution Width 11.9 Platelet Count 320 Mean Platelet Volume 11.0 H Immature Granulocytes % 0.500 H Neutrophils % 73.7 Lymphocytes % 16.8 Monocytes % 7.3 Eosinophils % 1.0 Basophils % 0.7 Nucleated Red Blood Cells % 0.0 Immature Granulocytes # 0.050 H Neutrophils # 7.5 Lymphocytes # 1.7 Monocytes # 0.7 Eosinophils # 0.1 Basophils # 0.1 Nucleated Red Blood Cells # 0.0 Sodium Level 136 Potassium Level 3.3 L Chloride Level 97 Carbon Dioxide Level 27 Anion Gap 12 Blood Urea Nitrogen 13 Creatinine 0.92 Est Glomerular Filtrat Rate mL/min Glucose Level 122 Calcium Level 10.4 H Total Bilirubin 0.4 Direct Bilirubin 0.00 Indirect Bilirubin 0.4 Aspartate Amino Transf (AST/SGOT) 32 Alanine Aminotransferase (ALT/SGPT) 25 Alkaline Phosphatase 104 Total Protein 8.0 Albumin 5.0 H Globulin 3.00 Albumin/Globulin Ratio 1.66 Lipase 98 Bedside Urine pH (LAB) 6.5 Bedside Urine Protein (LAB) Trace H Bedside Urine Glucose (UA) Negative Bedside Urine Ketones (LAB) Negative Bedside Urine Blood Negative Bedside Urine Nitrite (LAB) Positive H Bedside Urine Leukocyte Esterase (L Trace H Exam/Review of Systems Exam Vitals Vital Signs Date Temp Pulse Resp B/P (MAP) Pulse Ox O2 O2 Flow FiO2 Time Delivery Rate 11/07/18 164/101 10:19 (122) 11/07/18 97.8 110 16 97 Nasal 08:35 Cannula 11/07/18 2.0 07:42 Results Results 24hrs Laboratory Tests Test 11/06/18 23:40 11/07/18 00:14 White Blood Count 10.1 # Red Blood Count 4.14 #L Hemoglobin 13.9 # Hematocrit 41.4 # Mean Corpuscular Volume 100.0 Mean Corpuscular Hemoglobin 33.6 H Mean Corpuscular Hemoglobin Concent 33.6 Red Cell Distribution Width 11.9 Platelet Count 320 Mean Platelet Volume 11.0 H Immature Granulocytes % 0.500 H Neutrophils % 73.7 Lymphocytes % 16.8 Monocytes % 7.3 Eosinophils % 1.0 Basophils % 0.7 Nucleated Red Blood Cells % 0.0 Immature Granulocytes # 0.050 H Neutrophils # 7.5 Lymphocytes # 1.7 Monocytes # 0.7 Eosinophils # 0.1 Basophils # 0.1 Nucleated Red Blood Cells # 0.0 Sodium Level 136 Potassium Level 3.3 L Chloride Level 97 Carbon Dioxide Level 27 Anion Gap 12 Blood Urea Nitrogen 13 Creatinine 0.92 Est Glomerular Filtrat Rate mL/min Glucose Level 122 Calcium Level 10.4 H Total Bilirubin 0.4 Direct Bilirubin 0.00 Indirect Bilirubin 0.4 Aspartate Amino Transf (AST/SGOT) 32 Alanine Aminotransferase (ALT/SGPT) 25 Alkaline Phosphatase 104 Total Protein 8.0 Albumin 5.0 H Globulin 3.00 Albumin/Globulin Ratio 1.66 Lipase 98 Bedside Urine pH (LAB) 6.5 Bedside Urine Protein (LAB) Trace H Bedside Urine Glucose (UA) Negative Bedside Urine Ketones (LAB) Negative Bedside Urine Blood Negative Bedside Urine Nitrite (LAB) Positive H Bedside Urine Leukocyte Esterase (L Trace H Medications Medication Current Medications Clonazepam (Klonopin) 1 mg Q12 PRN PO AGITATION/ANXIETY Last administered on 11/07/18at 06:58; Admin Dose 1 MG; Start 11/07/18 at 07:00 Tramadol HCl (Ultram) 50 mg TID PRN PO PAIN Last administered on 11/07/18at 06:58; Admin Dose 50 MG; Start 11/07/18 at 07:00 IV Flush (NS 3 ml) 3 ml PER PROTOCOL IV ; Start 11/07/18 at 07:00 Ondansetron HCl (Zofran Inj) 4 mg Q6H PRN IV NAUSEA/VOMITING; Start 11/07/18 at 07:00 Acetaminophen (Tylenol Tab) 650 mg Q6H PRN PO .PAIN 1-3 OR TEMP; Start 11/07/18 at 07:00 Docusate Sodium (Colace) 100 mg Q12H PRN PO .CONSTIPATION; Start 11/07/18 at 07:00 Bisacodyl (Dulcolax) 5 mg DAILY PRN PO .CONSTIPATION; Start 11/07/18 at 07:00 Ceftriaxone Sodium 50 ml @ 100 mls/hr Q24H IVPB ; Start 11/08/18 at 03:00 Atorvastatin Calcium (Lipitor) 20 mg DAILY PO Last administered on 11/07/18 09:56; Admin Dose 20 MG; Start 11/07/18 at 09:00 Docusate Sodium (Colace) 200 mg DAILY PO Last administered on 11/07/18 09:56; Admin Dose 200 MG; Start 11/07/18 at 09:00 Polyethylene Glycol (Miralax) 17 gm DAILY PO Last administered on 11/07/18at 09:55; Admin Dose 17 GM; Start 11/07/18 at 09:00 Ranitidine HCl (Zantac) 300 mg HS PO ; Start 11/07/18 at 21:00 Venlafaxine HCl (Effexor Xr) 300 mg DAILY PO ; Start 11/07/18 at 09:00 Pantoprazole (Protonix Tab) 40 mg DAILY@06 PO Last administered on 11/07/18 09:55; Admin Dose 40 MG; Start 11/07/18 at 08:30 Hydralazine HCl (Apresoline) 10 mg Q6H PRN IV SBP>160 Last administered on 11/07/18at 10:20; Admin Dose 10 MG; Start 11/07/18 at 09:00 Losartan Potassium (Cozaar) 25 mg DAILY PO Last administered on 11/07/18 09:05; Admin Dose 25 MG; Start 11/07/18 at 09:00 Albuterol (Ventolin Hfa) 2 puff Q4H PRN INH WHEEZING; Start 11/07/18 at 09:56 TALHA RIVERA NP November 07, 2018 10:35
[2018-11-07] MEDS ORDERED: METHYLPREDNISOLONE 125 MG INJ IV ONE (11:30)
[2018-11-07] MEDS: ARFORMOTEROL TARTRATE 15MCG/2 ML AMP NEB SCH ×2 (11:30→13:50)
[2018-11-07] MEDS: VENLAFAXINE (XR) 75 MG CAP PO SCH (13:57)
[2018-11-07] MEDS ORDERED: ALBUTEROL/IPRATROPIUM (NEB) 3 ML AMP HHN SCH (14:00)
[2018-11-07] MEDS ORDERED: ALBUTEROL/IPRATROPIUM (NEB) 3 ML AMP HHN PRN (17:30)
[2018-11-07] MEDS ORDERED: POTASSIUM CHLORIDE (SR) 20 MEQ TAB PO STA (19:46)
[2018-11-07] MEDS: RANITIDINE 150 MG TAB PO SCH (20:05)
[2018-11-07] MEDS: METHYLPREDNISOLONE 40 MG INJ IV SCH (20:05)
[2018-11-08] VITALS (13 sets, daily range): BP systolic 116–180; BP diastolic 83–113; PULSE 78–117; RESP 16–20
[2018-11-08] MEDS ORDERED: ENALAPRILAT 1.25 MG INJ IV PRN (02:30)
[2018-11-08] MEDS: CEFTRIAXONE 1 GM/50 ML (PMX) 50 ML IVPB SCH (03:42)
[2018-11-08] MEDS: PANTOPRAZOLE (EC) 40 MG TAB PO SCH (05:31)
[2018-11-08] MEDS: traMADol 50 MG TAB PO PRN ×3 (05:32→18:44)
[2018-11-08] MEDS: ONDANSETRON 4 MG INJ IV PRN ×2 (05:32→14:54)
[2018-11-08] MEDS: clonAZEPAM 0.5 MG TAB PO PRN ×2 (07:54→20:37)
[2018-11-08] MEDS: POLYETHYLENE GLYCOL 17 GM PACKET PO SCH (08:44)
[2018-11-08] MEDS: VENLAFAXINE (XR) 75 MG CAP PO SCH (08:44)
[2018-11-08] MEDS: METHYLPREDNISOLONE 40 MG INJ IV SCH ×2 (08:45→20:36)
[2018-11-08] MEDS: DOCUSATE SODIUM 100 MG CAP PO SCH (08:45)
[2018-11-08] MEDS: ATORVASTATIN 20 MG TAB PO SCH (08:45)
[2018-11-08] MEDS: LOSARTAN 25 MG TAB PO SCH (08:45)
[2018-11-08] MEDS: ENOXAPARIN 40 MG/0.4 ML SYG SC SCH (09:00)
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
[2018-11-08] MEDS: ARFORMOTEROL TARTRATE 15MCG/2 ML AMP NEB SCH ×3 (11:57→23:30)
[2018-11-08] MEDS: RANITIDINE 150 MG TAB PO SCH (20:37)
[2018-11-09 01:54] VITALS: BP 138/82; PULSE 93; RESP 18
[2018-11-09] MEDS: CEFTRIAXONE 1 GM/50 ML (PMX) 50 ML IVPB SCH (02:52)
[2018-11-09] MEDS: ONDANSETRON 4 MG INJ IV PRN ×3 (02:52→23:21)
[2018-11-09] MEDS: PANTOPRAZOLE (EC) 40 MG TAB PO SCH (05:35)
[2018-11-09] MEDS: traMADol 50 MG TAB PO PRN ×3 (05:45→18:16)
[2018-11-09] MEDS: ARFORMOTEROL TARTRATE 15MCG/2 ML AMP NEB SCH ×2 (08:04→20:26)
[2018-11-09 08:06] VITALS: BP 137/85; PULSE 92; RESP 16
[2018-11-09] MEDS: METHYLPREDNISOLONE 40 MG INJ IV SCH ×2 (08:36→20:07)
[2018-11-09] MEDS: DOCUSATE SODIUM 100 MG CAP PO SCH (08:37)
[2018-11-09] MEDS: ATORVASTATIN 20 MG TAB PO SCH (08:37)
[2018-11-09] MEDS: POLYETHYLENE GLYCOL 17 GM PACKET PO SCH (08:38)
[2018-11-09] MEDS: clonAZEPAM 0.5 MG TAB PO PRN ×2 (08:38→20:06)
[2018-11-09] MEDS: ENOXAPARIN 40 MG/0.4 ML SYG SC SCH (08:39)
[2018-11-09] MEDS: LOSARTAN 25 MG TAB PO SCH (08:43)
[2018-11-09] MEDS: VENLAFAXINE (XR) 75 MG CAP PO SCH (10:14)
--- NOTE | 2018-11-09 13:35 | PDOCDIS ---
Discharge Instructions CONDITION [id number] Patient Condition: [id number] Stable HOME CARE INSTRUCTIONS: [id number] Diet Instructions: [id number] Low Fat /Cholesterol ACTIVITY: [id number] Activity Restrictions: [id number] Avoid heavy lifting Do not Drive FOLLOW UP/APPOINTMENTS Follow-up Plan appt primary & pain management 1wNASH Tabor MD November 09, 2018 13:35
[2018-11-09] MEDS ORDERED: TRAM50TA2 PO (13:38)
[2018-11-09] MEDS ORDERED: ASPI-826 PO (13:38)
[2018-11-09 14:00] VITALS: BP 145/88; PULSE 114
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
[2018-11-09] MEDS ORDERED: ALBUTEROL/IPRATROPIUM (NEB) 3 ML AMP HHN PRN (16:30)
[2018-11-09 19:49] VITALS: BP 141/80; PULSE 98; RESP 18
[2018-11-09] MEDS: RANITIDINE 150 MG TAB PO SCH (20:07)
[2018-11-10] MEDS: traMADol 50 MG TAB PO PRN ×3 (00:56→12:05)
[2018-11-10 01:49] VITALS: BP 150/85; PULSE 93; RESP 19
[2018-11-10] MEDS: PANTOPRAZOLE (EC) 40 MG TAB PO SCH (05:27)
[2018-11-10] MEDS: ONDANSETRON 4 MG INJ IV PRN (05:32)
[2018-11-10 07:27] VITALS: BP 127/101; PULSE 90; RESP 18
[2018-11-10] MEDS: clonAZEPAM 0.5 MG TAB PO PRN (08:10)
[2018-11-10] MEDS: METHYLPREDNISOLONE 40 MG INJ IV SCH (08:45)
[2018-11-10] MEDS: POLYETHYLENE GLYCOL 17 GM PACKET PO SCH (08:45)
[2018-11-10] MEDS: ATORVASTATIN 20 MG TAB PO SCH (08:46)
[2018-11-10] MEDS: ENOXAPARIN 40 MG/0.4 ML SYG SC SCH (08:46)
[2018-11-10] MEDS: ARFORMOTEROL TARTRATE 15MCG/2 ML AMP NEB SCH (08:46)
[2018-11-10] MEDS: DOCUSATE SODIUM 100 MG CAP PO SCH (08:47)
[2018-11-10] MEDS: LOSARTAN 25 MG TAB PO SCH (08:47)
[2018-11-10] MEDS: VENLAFAXINE (XR) 75 MG CAP PO SCH (08:48)
[2018-11-10] MEDS ORDERED: TRAM50TA2 PO (10:58)
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
[2018-11-10 14:00] VITALS: BP 120/83; PULSE 119; RESP 18
== END 2018-11-10 17:03 | disposition home or self-care (01) | DRG 897 ==
LOC: E/R 22:31 → TEL 11-07 05:04 → 5EC 11-08 17:27
PROVIDERS: ADMIT Family Medicine; ATTEND Internal Medicine
DX: F13.239 Sedative, hypnotic or anxiolytic dependence with withdrawal, unspecified (principal); N39.0 Urinary tract infection, site not specified; J43.9 Emphysema, unspecified; F41.9 Anxiety disorder, unspecified; F32.9 Major depressive disorder, single episode, unspecified; E78.5 Hyperlipidemia, unspecified; I71.4 Abdominal aortic aneurysm, without rupture; I10 Essential (primary) hypertension; E87.6 Hypokalemia; K27.9 Peptic ulcer, site unspecified, unspecified as acute or chronic, without hemorrhage or perforation; Z99.81 Dependence on supplemental oxygen; G89.29 Other chronic pain; F41.0 Panic disorder [episodic paroxysmal anxiety]; Z87.891 Personal history of nicotine dependence; E05.90 Thyrotoxicosis, unspecified without thyrotoxic crisis or storm; F41.1 Generalized anxiety disorder; K57.30 Diverticulosis of large intestine without perforation or abscess without bleeding; E86.0 Dehydration; Z65.8 Other specified problems related to psychosocial circumstances; Z91.14 Patient's other noncompliance with medication regimen
CPT/HCPCS: 36415; 75635; 80048; 80053; 80061; 80307; 81003; 83036; 83690; 83735; 84100; 84439; 84443; 84480; 85025; 87081; 94640; 94664; 96374; 96375; 96376; J0360; J0696; J1650; J2270; J2405; J2920; J2930; Q9967

== ENCOUNTER 2018-11-24 05:35 | Emergency (ER) | payer MEDICARE, OTHER ==
[~2018-11-24] VITALS: Wt 56.5 kg
[~2018-11-24 05:35] MED LIST changes: -CLON-412 PO; -CLON1TAB13 PO; -HYDR-4011 PO; -NAPR220C2 PO; -ONDA4TAB8 PO
[2018-11-24] MEDS ORDERED: CLON-429 PO (05:54)
--- NOTE | 2018-11-24 05:54 | ERD ---
ER Documentation Chief Complaint Chief Complaint gui sim from [address] [place], for anxiety, ran out of meds 3 weeks ago HPI 73-year-old female complains of epigastric anxiety. She says he ran out of meds 3 days ago. Denies fevers chills nausea vomiting. Denies suicidal homicidal ideation. Denies any other current complaints ROS All systems reviewed and are negative except as per history of present illness. Medications Home Meds Active Scripts Tramadol HCl (Tramadol HCl) 50 Mg Tablet, 50 MG PO Q6 PRN for PAIN for 1 Day, TAB Prov:NASH BANKS MD 11/10/18 Tramadol HCl (Tramadol HCl) 50 Mg Tablet, 50 MG PO TID PRN for PAIN for 5 Days, TAB Prov:NASH BANKS MD 11/09/18 Aspirin/Acetaminophen/Caffeine (Excedrin Extra Strength Caplet) 1 Each Tablet, 2 EACH PO Q6 PRN for HEADACHE for 5 Days, TAB Prov:NASH BANKS MD 11/09/18 Ibuprofen* (Motrin*) 600 Mg Tab, 600 MG PO Q6H PRN for PAIN AND OR ELEVATED TEMP, #14 TAB Take with food Prov:CLARA WATERS MD 09/11/18 Ondansetron (Ondansetron Odt) 4 Mg Tab.rapdis, 4 MG PO Q6H PRN for NAUSEA AND/OR VOMITING, #10 TAB Prov:CLARA WATERS MD 09/11/18 Polyethylene Glycol* (Miralax*) 17 Gm Powd.pack, 17 GM PO DAILY, #7 Prov:KALA SAUDNERS DO 10/30/17 Reported Medications Docusate Sodium* (Doc-Q-Lace*) 100 Mg Capsule, 200 MG PO DAILY, CAP 02/24/18 Omeprazole* (Omeprazole*) 40 Mg Capsule.dr, 40 MG PO DAILY, #30 CAP 02/24/18 Ranitidine Hcl* (Ranitidine Hcl*) 300 Mg Tablet, 300 MG PO HS, #30 TAB 02/24/18 Albuterol Sulfate* (Ventolin HFA*) 18 Gm Hfa.aer.ad, 2 PUFF INHALATION Q4H, #1 INHALER 04/26/17 Atorvastatin Calcium* (Atorvastatin Calcium*) 20 Mg Tablet, 20 MG PO DAILY 11/04/12 Venlafaxine Hcl* (Effexor XR*) 150 Mg Cap.sr.24h, 300 MG PO DAILY 11/04/12 Allergies Allergies: Coded Allergies: No Known Allergy (Unverified , 09/11/18) PMhx/Soc History of Surgery: Yes (Pt states she cannot remember the dates) Anesthesia Reaction: No Hx Neurological Disorder: No Hx Respiratory Disorders: Yes (COPD) Hx Cardiac Disorders: No Hx Psychiatric Problems: No Hx Alcohol Use: No Hx Substance Use: Yes (Speed. Pt cannot recall the dates) Hx Tobacco Use: Yes (Stopped 2 years ago. Pt cannot recall amount) Physical Exam Vitals Vital Signs Date Temp Pulse Resp B/P (MAP) Pulse Ox O2 O2 Flow FiO2 Time Delivery Rate 11/24/18 98.7 90 19 123/76 97 05:39 (92) Physical Exam Const: No acute distress Head: Atraumatic Eyes: Normal Conjunctiva ENT: Normal External Ears, Nose and Mouth. Neck: Full range of motion. No meningismus. Resp: Clear to auscultation bilaterally Cardio: Regular rate and rhythm, no murmurs Abd: Soft, non tender, non distended. Normal bowel sounds Skin: No petechiae or rashes Back: No midline or flank tenderness Ext: No cyanosis, or edema Neur: Awake and alert Psych: Normal Mood and Affect Procedures/MDM Medical decision make: 73-year female here with generalized anxiety. Treated with Klonopin. Susanna Yungonopin. Follow-up with primary care physician. Departure Diagnosis: Primary Impression: Anxiety attack Condition: Stable BESSY HOPKINS Nov 24, 2018 05:53
[2018-11-24] MEDS ORDERED: clonAZEPAM 0.5 MG TAB PO ONE (06:00)
[2018-11-24 08:10] VITALS: BP 129/93; PULSE 117; RESP 18
== END 2018-11-24 08:18 | disposition home or self-care (01) ==
LOC: E/R 05:35
DX: F41.9 Anxiety disorder, unspecified (principal); J44.9 Chronic obstructive pulmonary disease, unspecified; Z79.82 Long term (current) use of aspirin
CPT/HCPCS: 99283

== ENCOUNTER 2019-02-18 06:16 | Emergency (ER) | payer MEDICARE, OTHER ==
[~2019-02-18] VITALS: Ht 170.2 cm; Wt 70.5 kg
[~2019-02-18 06:16] MED LIST changes: +CLON-429 PO
[2019-02-18] MEDS ORDERED: ONDANSETRON (ODT) 4 MG TAB ODT STA (06:20)
[2019-02-18 06:22] VITALS: BP 152/94; PULSE 111; RESP 19; Ht 170.2 cm; Wt 70.5 kg
== END 2019-02-18 08:03 | disposition home or self-care (01) ==
LOC: E/R 06:16
DX: F11.20 Opioid dependence, uncomplicated (principal); J44.9 Chronic obstructive pulmonary disease, unspecified; R40.2142 Coma scale, eyes open, spontaneous, at arrival to emergency department; R40.2362 Coma scale, best motor response, obeys commands, at arrival to emergency department; R40.2252 Coma scale, best verbal response, oriented, at arrival to emergency department; Z79.82 Long term (current) use of aspirin; Z87.891 Personal history of nicotine dependence
CPT/HCPCS: 81003; 99283

== ENCOUNTER 2019-02-18 11:46 | Emergency (ER) | payer MEDICARE, OTHER | END 2019-02-18 12:28 | disposition home or self-care (01) | LOC: E/R 11:46 | DX: I10 Essential (primary) hypertension (principal); J44.9 Chronic obstructive pulmonary disease, unspecified | CPT/HCPCS: 99283 ==